=== PATIENT | male | born 1960 | race Caucasian/White ===

== ENCOUNTER → 2016-07-13 | Outpatient (CLI) | payer OTHER ==
[~2016-07-13] MED LIST: /CELE20CA PO; CELE-19 PO; CYMB1CAP PO; FISH300C2 OR; FLEX10TA2 PO; GABA100C PO; GLUC500T3 OR; Glucosamine OR; MIRA0.5T PO; MULTIVIT OR; NORFLEX PO; NUCY100T8 PO; PERCOCET PO; SOMA350T OR; SOMA350T PO; TIZA4TAB OR; TRAM50TA2 OR; VICO5TAB OR
--- NOTE | 2016-07-21 00:24 | ECWPNPC ---
PATIENT NAME: BEBE NERI : 1960 GENDER: MALE VISIT DATE: 07/13/2016 DISCHARGE DATE: 07/13/16 1618 VISIT LOCKED DATE TIME: PHYSICIAN: JESUS CORMIER RESOURCE: JESUS CORMIER REASON FOR APPOINTMENT 1. W/C HISTORY OF PRESENT ILLNESS HISTORY OF PRESENT ILLNESS: PAIN THE PATIENT DESCRIBES THE PAIN... FALL RISK SCREENING: SCREENING :NO FALLS IN THE PAST YEAR TODAY'S VISIT: NOTES: WC FOLLOWUP FOR LOW BACK AND LEFT LEG PAIN. LEG PAIN IS GETTING WORSE AND HE WOULD LIKE TO HAVE THE KNEE AREA SHOTS WHICH HAVE HELPED WITH THE PAIN IN THE PAST. . CURRENT MEDICATIONS TAKING NUCYNTA ER 100 MG TABLET EXTENDED RELEASE 12 HOUR 1 TABLET ORALLY EVERY 12 HRS MDD=2 TAKING SOMA 350 MG TABLET 1 TAB ORALLY DAILY AT BEDTIME NEEDED MDD=1 TAKING PERCOCET 5-325 MG TABLET 1 TABLET ORALLY EVERY 4 -6 HOURS PRN PAIN MDD=4 TAKING CELEBREX 200 MG CAPSULE 1 CAPSULE ORALLY ONCE A DAY NOT-TAKING TIZANIDINE HCL 4 MG TABLET 1 TABLET NEEDED ORALLY BEFORE BEDTIME, NOTES: INSURANCE WONT FILL MEDICATION LIST REVIEWED AND RECONCILED WITH THE PATIENT PAST MEDICAL HISTORY GERD ALLERGIES N.K.D.A. SOCIAL HISTORY GENERAL: TOBACCO USE ARE YOU A:NONSMOKER LEARNING BARRIERS / SPECIAL NEEDS ORIENTED TO PLAN OF CARE: PATIENT, PAIN MANAGEMENT PATIENT, ORIENTED TO PLAN OF CARE: PATIENT, PAIN MANAGEMENT PATIENT. NEW PATIENT PAIN DIARY TODAY'S VISITNOTES FROM 0-10, WHAT LEVEL IS YOUR PAIN TODAY?0 PAIN CLINIC PFS, CLERGY, PUBLIC HEALTH REFERRALS PFS REFERRAL NEEDED?NO CLERGY REFERRAL NEEDED?NO PUBLIC HEALTH REFERRAL NEEDED?NO WAS THE PROVIDER NOTIFIED OF ANY PERTINENT INFO?NO PFS REFERRAL NEEDED?NO CLERGY REFERRAL NEEDED?NO PUBLIC HEALTH REFERRAL NEEDED?NO WAS THE PROVIDER NOTIFIED OF ANY PERTINENT INFO?NO REVIEW OF SYSTEMS CONSTITUTIONAL: ANY CHANGE IN YOUR MEDICAL CONDITION? NO . CHILLS NO . FEVER NO . INFECTION: DO YOU HAVE NEW INFECTIONS? NO . DO YOU HAVE HISTORY OF MRSA? NO . MUSCULOSKELETAL: ANY NEW PATTERNS OF PAIN OR NUMBNESS? NO . GASTROENTEROLOGY: ANY NEW CHANGE IN BOWEL CONTROL? NO . GENITOURINARY: ANY NEW CHANGE IN BLADDER CONTROL? NO . IS THERE A CHANCE YOU COULD BE ? NO . HEMATOLOGY/LYMPH: DO YOU TAKE ANY BLOOD THINNERS? (FOR EXAMPLE- COUMADIN, PLAVIX, AGGRENOX, PLATEL, PRADAXA, OR XARELTO) NO . WHEN WAS YOUR LAST DOSE? DATE: TIME: . NEUROLOGY: HAVE YOU FALLEN IN THE PAST 6 MONTHS? NO . ANY NEW EXTREMITY NUMBNESS OR WEAKNESS? NO . CARDIOLOGY: DO YOU HAVE A PACEMAKER OR DEFIBRILLATOR? NO . RESPIRATORY: HAVE YOU BEEN SICK IN THE PAST WEEK? NO . FEVER NO . FLU LIKE SYMPTOMS? NO . COUGH NO . INTEGUMENTARY: DO YOU HAVE ANY RASHES OR OPEN SORES? NO . ALLERGIC/IMMUNO: ARE YOU ALLERGIC TO SHELLFISH OR IV DYE? NO . ANY NEW ALLERGIES? NO . PSYCHIATRIC: DO YOU HAVE THOUGHTS OF HURTING YOURSELF OR SOMEONE ELSE? NO . ARE YOU ABUSED, NEGLECTED, OR IN AN UNSAFE ENVIRONMENT? NO . ENDOCRINOLOGY: ARE YOU DIABETIC? NO . OTHER: DO YOU NEED ANY PRESCRIPTIONS? NO . IF YES, PLEASE LIST: ____ . ANY NEW PROBLEMS WITH YOUR MEDICATIONS? NO . WHEN DID YOU LAST EAT? ____ . WHEN DID YOU LAST DRINK? ____ . WHAT DID YOU LAST DRINK? ____ . NAME OF PERSON DRIVING YOU HOME? ____ . DO YOU HAVE ANY OTHER QUESTIONS OR CONCERNS NO . REVIEWED BY: PROVIDER: JESUS STEWART . VITAL SIGNS WT 210 LBS, HT 70 IN, BMI 30.13 INDEX, BP 124/70 MM HG, HR 83 /MIN, RR 16 /MIN, TEMP 98.0 F, OXYGEN SAT % 92%, NA INITIALS LC, REVIEWED BY: CS. EXAMINATION GENERAL EXAMINATION: PSYCHALERT , ORIENTED X 3 , APPROPRIATE MOOD AND AFFECT . HEART:HEART RATE REGULAR. MUSCULOSKELETAL:WEAKNESS NOTED IN BOTH QUADS LEFT GREATER THAN RIGHT., TRIGGER POINTS AND TIGHT FIBROUSS BANDS IDENTIFIED OVER THE LUMBAR PARAVEREBRAL MUSCLES AND INTO THE SACRUM. RESTRICTION OF ROM IN THIS AREA. SLOW TO RISE TO STANDING POSITION. GAIT ANTALGIC WITH LEFT LEG LIMP NOTED. POINT TENDERNESS OVER LUMBAR SPINOUS PROCESSES AND SPECIFICALLY AT THE LEFT SACRA ILIAC JOINT. JOINTS:LEFT , KNEE ,, PAIN , SWELLING , AT REST , WITH RANGE OF MOTION . LEFT PATELLA AND DISTAL LATERAL QUAD WARM TO TOUCH. ASSESSMENTS POSTLAMINECTOMY SYNDROME, NOT ELSEWHERE CLASSIFIED - M96.1 (PRIMARY) SPONDYLOSIS WITHOUT MYELOPATHY OR RADICULOPATHY, LUMBAR REGION - M47.816 PAIN IN LEFT LOWER LEG - M79.662 TREATMENT POSTLAMINECTOMY SYNDROME, NOT ELSEWHERE CLASSIFIED ARTHROCENTESIS INJECTION LARGE JOINT ([id number])JESUS CORMIER 07/13/2016 4:01:38 PM > LEFT KNEE INJECTION FACET JOINT/NERVE LUMBAR/SACRALWALJESUS PATTEN 07/13/2016 4:04:37 PM > BILATERAL THERAPEUTIC FACETS L4-5, L5S1 NOTES: CALL WHEN MEDS DUE. PROCEDURES PN WORKMANS' COMP OPINION IN YOUR OPINION, WAS THE INCIDENT THAT THE PATIENT DESCRIBED THE COMPETENT MEDICAL CAUSE OF THIS INJURY/ILLNESS? YES ARE THE PATIENT'S COMPLAINTS CONSISTENT WITH HIS/HER HISTORY OF THE INJURY/ILLNESS? YES IS THE PATIENT'S HISTORY OF THE INJURY/ILLNESS CONSISTENT WITH YOUR OBJECTIVE FINDING? YES WHAT IS THE PERCENTAGE OF TEMPORARY IMPAIRMENT? MARKED = 75% IS THE PATIENT WORKING? NO DOCTOR ON SITE: ARLEY HANKS MD PROCEDURE CODES FA211 ESTABILISHED PATIENT [facility] FACILITY CHARGE DISPOSITION & COMMUNICATION FOLLOW UP 6 WEEKS WC (REASON: WC NEED AUTH FOR LEFT KNEE/LEG INJECTION, AND BILATERAL LUMBAR FACETS AT L4-5 AND L5S1) ELECTRONICALLY SIGNED BY HANNAH VILLEGAS ON 07/20/2016 AT 06:55 PM EDT DISCLAIMER : THIS IS A VISIT SUMMARY EXTRACTED FROM THE [employer] CHART. IT IS NOT A COPY OF THE [employer] PROGRESS NOTE. PAPA
== END ==
LOC: M PAIN 15:00
PROVIDERS: ATTEND Nurse Practitioner Family
DX: Z09 Encounter for follow-up examination after completed treatment for conditions other than malignant neoplasm (principal); G89.29 Other chronic pain; M96.1 Postlaminectomy syndrome, not elsewhere classified; M47.816 Spondylosis without myelopathy or radiculopathy, lumbar region; M79.662 Pain in left lower leg; K21.9 Gastro-esophageal reflux disease without esophagitis; Z79.891 Long term (current) use of opiate analgesic; Z79.899 Other long term (current) drug therapy

== ENCOUNTER → 2016-08-17 | Outpatient (CLI) | payer OTHER ==
[~2016-08-17] MED LIST changes: +BUPIVACAINE HCL 0.25% 10 ML VIAL As Ordered ONE; +ISOVUE-M 300 61% 15ML VIAL (Q9967) As Ordered ONE; +LIDOCAINE 1% SDV INJ 30 ML VIAL As Ordered ONE; +TRIAMCINOLONE ACETONIDE SUSP 40 MG/ML VIAL (J3301) As Ordered ONE; +oxyCODONE 5MG TAB As Ordered ONE
--- NOTE | 2016-08-17 16:07 | REP ---
Left knee series: Partial study two views: History: Left knee injection. 3 seconds of fluoroscopy time is reported. Findings: A sequence of two last image hold fluoroscopic spot radiographs of the left knee document needle position and contrast injection associated with left knee injection procedure. Signed by César De Los Santos MD 08/17/2016 06:00 P
--- NOTE | 2016-08-25 00:25 | ECWPNPC ---
PATIENT NAME: BEBE NERI : 1960 GENDER: MALE VISIT DATE: 08/17/2016 DISCHARGE DATE: 08/17/16 1215 VISIT LOCKED DATE TIME: PHYSICIAN: ARLEY PACE RESOURCE: ARLEY PACE REASON FOR APPOINTMENT 1. KNEE JOINT INJECTION HISTORY OF PRESENT ILLNESS HISTORY OF PRESENT ILLNESS: PAIN THE PATIENT DESCRIBES THE PAIN... FALL RISK SCREENING: SCREENING :NO FALLS IN THE PAST YEAR CURRENT MEDICATIONS TAKING SOMA 350 MG TABLET 1 TAB ORALLY DAILY AT BEDTIME NEEDED MDD=1, NOTES: TAKING CELEBREX 200 MG CAPSULE 1 CAPSULE ORALLY ONCE A DAY, NOTES: 08/14/16 TAKING NUCYNTA ER 100 MG TABLET EXTENDED RELEASE 12 HOUR 1 TABLET ORALLY EVERY 12 HRS MDD=2, NOTES: 08/16/16 2200 TAKING PERCOCET 5-325 MG TABLET 1 TABLET ORALLY EVERY 4 -6 HOURS PRN PAIN MDD=4, NOTES: 08/17/16 0600 NOT-TAKING TIZANIDINE HCL 4 MG TABLET 1 TABLET NEEDED ORALLY BEFORE BEDTIME, NOTES: INSURANCE WONT FILL MEDICATION LIST REVIEWED AND RECONCILED WITH THE PATIENT PAST MEDICAL HISTORY GERD ALLERGIES N.K.D.A. SOCIAL HISTORY GENERAL: PAIN CLINIC PFS, CLERGY, PUBLIC HEALTH REFERRALS CLERGY REFERRAL NEEDED?NO WAS THE PROVIDER NOTIFIED OF ANY PERTINENT INFO?NO PFS REFERRAL NEEDED?NO PUBLIC HEALTH REFERRAL NEEDED?NO PATIENT: ____. REVIEW OF SYSTEMS CONSTITUTIONAL: ANY CHANGE IN YOUR MEDICAL CONDITION? NO . CHILLS NO . FEVER NO . INFECTION: DO YOU HAVE NEW INFECTIONS? NO . DO YOU HAVE HISTORY OF MRSA? NO . MUSCULOSKELETAL: ANY NEW PATTERNS OF PAIN OR NUMBNESS? NO . GASTROENTEROLOGY: ANY NEW CHANGE IN BOWEL CONTROL? NO . GENITOURINARY: ANY NEW CHANGE IN BLADDER CONTROL? NO . IS THERE A CHANCE YOU COULD BE ? NO . HEMATOLOGY/LYMPH: DO YOU TAKE ANY BLOOD THINNERS? (FOR EXAMPLE- COUMADIN, PLAVIX, AGGRENOX, PLATEL, PRADAXA, OR XARELTO) NO . WHEN WAS YOUR LAST DOSE? DATE: TIME: . NEUROLOGY: HAVE YOU FALLEN IN THE PAST 6 MONTHS? NO . ANY NEW EXTREMITY NUMBNESS OR WEAKNESS? NO . CARDIOLOGY: DO YOU HAVE A PACEMAKER OR DEFIBRILLATOR? NO . RESPIRATORY: HAVE YOU BEEN SICK IN THE PAST WEEK? NO . FEVER NO . FLU LIKE SYMPTOMS? NO . COUGH NO . INTEGUMENTARY: DO YOU HAVE ANY RASHES OR OPEN SORES? NO . ALLERGIC/IMMUNO: ARE YOU ALLERGIC TO SHELLFISH OR IV DYE? NO . ANY NEW ALLERGIES? NO . PSYCHIATRIC: DO YOU HAVE THOUGHTS OF HURTING YOURSELF OR SOMEONE ELSE? NO . ARE YOU ABUSED, NEGLECTED, OR IN AN UNSAFE ENVIRONMENT? NO . ENDOCRINOLOGY: ARE YOU DIABETIC? NO . OTHER: DO YOU NEED ANY PRESCRIPTIONS? NO . IF YES, PLEASE LIST: ____ . ANY NEW PROBLEMS WITH YOUR MEDICATIONS? NO . WHEN DID YOU LAST EAT? ____08/16/16 1800 . WHEN DID YOU LAST DRINK? ____08/17/16 0600 . WHAT DID YOU LAST DRINK? ____WATER . NAME OF PERSON DRIVING YOU HOME? ____MIHAIRAMON . DO YOU HAVE ANY OTHER QUESTIONS OR CONCERNS NO . REVIEWED BY: PROVIDER: . VITAL SIGNS WT 207.4 LBS, HT 70 IN, BMI 29.76 INDEX, BP 102/72 MM HG, HR 72 /MIN, RR 18 /MIN, TEMP 98.5 F, OXYGEN SAT % 94%, NA INITIALS SC 10:33, REVIEWED BY: MLF. ASSESSMENTS OSTEOARTHRITIS OF KNEE, UNSPECIFIED - M17.9 (PRIMARY) LEFT KNEE OSTEOARTHRITIS. PROCEDURES PN WORKMANS' COMP OPINION IN YOUR OPINION, WAS THE INCIDENT THAT THE PATIENT DESCRIBED THE COMPETENT MEDICAL CAUSE OF THIS INJURY/ILLNESS? YES ARE THE PATIENT'S COMPLAINTS CONSISTENT WITH HIS/HER HISTORY OF THE INJURY/ILLNESS? YES IS THE PATIENT'S HISTORY OF THE INJURY/ILLNESS CONSISTENT WITH YOUR OBJECTIVE FINDING? YES WHAT IS THE PERCENTAGE OF TEMPORARY IMPAIRMENT? MARKED = 75% IS THE PATIENT WORKING? NO DOCTOR ON SITE: ARLEY HANKS MD PRE-PROCEDURE DIAGNOSIS: LEFT KNEE OSTEOARTHRITISPOST-PROCEDURE DIAGNOSIS: LEFT KNEE OSTEOARTHRITISPROCEDURE: INJECTION OF STEROIDS AT THE LEFT KNEE WITH FLUOROSCOPIC GUIDANCESURGEON: ARLEY PACE MDANESTHESIA: LOCALCOMPLICATIONS: NONEPRE-PROCEDURE NOTE: THE PATIENT IS SUFFERING OF SEVERE LEFT KNEE PAIN. THE PATIENT HAS BEEN USING MULTIPLE MEDICATIONS TO CONTROL THIS PAIN. I HAVE DISCUSSED ALTERNATIVES WITH HIM. THE PATIENT INDICATES THAT HE CANNOT FUNCTION WITH THIS PAIN. AFTER DISCUSSING ALTERNATIVES HE WANTS TO MOVE FORWARD WITH A LEFT KNEE INJECTION OF STEROIDS. I WENT THROUGH THE RISKS ALTERNATIVES AND BENEFITS ASSOCIATED WITH THIS PROCEDURE AND THE PATIENT EXPRESSED THAT HE WOULD LIKE TO PROCEED. DUE TO THE PATIENT BODY HABITUS AND FOR CERTAINTY THE PROCEDURE WAS DONE UNDER FLUOROSCOPIC GUIDANCE. PROCEDURE NOTE: THE PATIENT WAS TAKEN TO THE PROCEDURE ROOM AND PLACED IN THE SUPINE POSITION. THE LEFT KNEE WERE CLEAN WITH BETHADINE SOLUTION AND DRAPED ASEPTICALLY. THE PROCEDURE WAS DONE WITH FLUOROSCOPIC GUIDANCE. ENTRY POINT WAS SELECTED AT THE SUPERIOR AND LATERAL MARGIN OF THE LEFT KNEE. UNDER FLUOROSCOPIC GUIDANCE A 22 GAUGE SPINAL NEEDLE WAS ADVANCE SMOOTHLY UNTIL THE LATERAL THIRD OF THE KNEE JOINT WAS REACHED SEEN WITH AN AP VIEW. AFTER PROPER POSITION OF THE NEEDLE WAS REACHED ISOVUE DYE 30% .25CC WAS INJECTED SLOWLY SHOWING ADEQUATE SPREAD OF THE DYE OVER THE RESPECTIVE KNEE JOINT. THEN A SOLUTION OF 4 CC OF BUPIVACAINE 0.125% AND KENALOG 20 MG WAS INJECTED IN THE LEFT KNEE. INJECTION WAS DONE SMOOTHLY AND WITHOUT RESISTANCE. THERE WAS NO EVIDENCE OF PARESTHESIA OR BLOOD. THE PATIENT WAS SEND TO THE RECOVERY ROOM FOR OBSERVATION. FLUOROSCOPY TIME WAS 3 SECONDS.POST-PROCEDURE NOTE: I DISCUSSED ALTERNATIVES WITH THE PATIENT. I WILL SEE HIM IN A F/UP IN THE NEXT FEW WEEKS. THERE WERE NO COMPLICATIONS DURING THE PROCEDURE. INSTRUCTIONS WERE GIVEN, QUESTIONS WERE ANSWERED, PATIENT REPORTS UNDERSTANDING AND AGREES WITH THE PLAN. I, LUCY SALAZAR, DOCUMENTED THE ABOVE INFORMATION ACTING A SCRIBE FOR DR. PACE. I HAVE REVIEWED THE ABOVE DOCUMENT, WRITTEN BY LUCY SALAZAR SCRIBLuke AND I VERIFY THAT IT IS ACCURATE. DIAGNOSTIC IMAG[facility] FLUORO GUIDANCE (PAIN)[id number] PROCEDURE CODES 6045F RADXPS IN END [id number] PXD [id number] DRAIN/INJ JOINT/[place] [address] NEEDLE LOCALIZATION BY XRAY DISPOSITION & COMMUNICATION FOLLOW UP 3 WEEKS ELECTRONICALLY SIGNED BY ARLEY PACE MD ON 08/24/2016 AT 06:25 AM EDT DISCLAIMER : THIS IS A VISIT SUMMARY EXTRACTED FROM THE [employer] CHART. IT IS NOT A COPY OF THE [employer] PROGRESS NOTE. MTDD
== END ==
LOC: M PAIN 10:20
PROVIDERS: ATTEND Anesthesiology
DX: G89.29 Other chronic pain (principal); M17.9 Osteoarthritis of knee, unspecified; K21.9 Gastro-esophageal reflux disease without esophagitis; Z79.891 Long term (current) use of opiate analgesic; Z79.899 Other long term (current) drug therapy
CPT/HCPCS: 20610; 77002; J3301; Q9967

== ENCOUNTER → 2016-10-17 | Outpatient (CLI) | payer OTHER ==
[~2016-10-17] MED LIST changes: -BUPIVACAINE HCL 0.25% 10 ML VIAL As Ordered ONE; -ISOVUE-M 300 61% 15ML VIAL (Q9967) As Ordered ONE; -LIDOCAINE 1% SDV INJ 30 ML VIAL As Ordered ONE; -TRIAMCINOLONE ACETONIDE SUSP 40 MG/ML VIAL (J3301) As Ordered ONE; -oxyCODONE 5MG TAB As Ordered ONE
--- NOTE | 2016-10-27 00:18 | ECWPNPC ---
PATIENT NAME: BEBE NERI : 1960 GENDER: MALE VISIT DATE: 10/17/2016 DISCHARGE DATE: 10/17/16 1654 VISIT LOCKED DATE TIME: PHYSICIAN: ARLEY PACE RESOURCE: ARLEY PACE REASON FOR APPOINTMENT 1. BACK/KNEE HISTORY OF PRESENT ILLNESS HISTORY OF PRESENT ILLNESS: PAIN THE PATIENT DESCRIBES THE PAIN... 55 YEAR OLD MALE PATIENT WITH HISTORY OF CHRONIC BACK AND LEFT LEG PAIN. PATIENT DESCRIBES THE PAIN ACHING, BURNING, SHARP, STABBING, TENDER, THROBBING, SORE, SHOOTING, AND HAVING IT ALL THE TIME WITH A PAIN SCORE OF 6-7/10 ON TODAY'S VISIT. PATIENT WAS INJURED IN A WORK RELATED INJURY ON 01-24-2010 WORKING FOR [employer] A [employer]NA[employer], PATIENT WAS CLIMBING A LADDER ON A TRUCK AND FELL INJURING HIS BACK AND LEFT LEG. PATIENT HAS TRIED PHYSICAL THERAPY IN THE PAST WITHOUT ANY SUCCESSES. PATIENT REPORTS THAT HE HAS HAD ONE BACK SURGERY IT HELPED FOR A TIME, THEN THE PAIN CAME BACK. PATIENT RECEIVED A LEFT KNEE INJECTION ON 08/17/2016 AND STATES THAT THE INJECTION IS STILL PROVIDING GOOD PAIN RELIEF FOR HIM WITH INCREASED MOBILITY AND FUNCTIONALITY. PATIENT REPORTS THAT THE INJECTION PROVIDED OVER 50 PERCENT IN PAIN RELIEF. PATIENT STATES THAT HIS BACK HURTS THE MOST TODAY. PATIENT DENIES UNEXPLAINABLE WEIGHT LOSS, FEVER, CHILLS, NEW CHANGES ON HIS URINARY OR BOWEL CONTROL. FALL RISK SCREENING: SCREENING :NO FALLS IN THE PAST YEAR CURRENT MEDICATIONS TAKING SOMA 350 MG TABLET 1 TAB ORALLY DAILY AT BEDTIME NEEDED MDD=1 TAKING CELEBREX 200 MG CAPSULE 1 CAPSULE ORALLY ONCE A DAY TAKING NUCYNTA ER 100 MG TABLET EXTENDED RELEASE 12 HOUR 1 TABLET ORALLY EVERY 12 HRS MDD=2 TAKING PERCOCET 5-325 MG TABLET 1 TABLET ORALLY EVERY 4 -6 HOURS PRN PAIN MDD=4 NOT-TAKING TIZANIDINE HCL 4 MG TABLET 1 TABLET NEEDED ORALLY BEFORE BEDTIME, NOTES: INSURANCE WONT FILL MEDICATION LIST REVIEWED AND RECONCILED WITH THE PATIENT PAST MEDICAL HISTORY GERD CHRONIC BACK PAIN ALLERGIES N.K.D.A. SURGICAL HISTORY LOW BACK SURGURY 1999 L3, L4, L5 BACK SURGURY 2000 FAMILY HISTORY NO FAMILY HISTORY DOCUMENTED. SOCIAL HISTORY GENERAL: PAIN CLINIC PFS, CLERGY, PUBLIC HEALTH REFERRALS CLERGY REFERRAL NEEDED?NO WAS THE PROVIDER NOTIFIED OF ANY PERTINENT INFO?NO PFS REFERRAL NEEDED?NO PUBLIC HEALTH REFERRAL NEEDED?NO PATIENT: ____. HOSPITALIZATION/MAJOR DIAGNOSTIC PROCEDURE NO HOSPITALIZATION HISTORY. REVIEW OF SYSTEMS REVIEWED BY: PROVIDER: . CONSTITUTIONAL: ANY CHANGE IN YOUR MEDICAL CONDITION? NO . CHILLS NO . FEVER NO . INFECTION: DO YOU HAVE NEW INFECTIONS? NO . DO YOU HAVE HISTORY OF MRSA? NO . MUSCULOSKELETAL: ANY NEW PATTERNS OF PAIN OR NUMBNESS? NO . GASTROENTEROLOGY: ANY NEW CHANGE IN BOWEL CONTROL? NO . GENITOURINARY: ANY NEW CHANGE IN BLADDER CONTROL? NO . IS THERE A CHANCE YOU COULD BE ? NO . HEMATOLOGY/LYMPH: DO YOU TAKE ANY BLOOD THINNERS? (FOR EXAMPLE- COUMADIN, PLAVIX, AGGRENOX, PLATEL, PRADAXA, OR XARELTO) NO . WHEN WAS YOUR LAST DOSE? DATE: TIME: . NEUROLOGY: HAVE YOU FALLEN IN THE PAST 6 MONTHS? NO . ANY NEW EXTREMITY NUMBNESS OR WEAKNESS? NO . CARDIOLOGY: DO YOU HAVE A PACEMAKER OR DEFIBRILLATOR? NO . RESPIRATORY: HAVE YOU BEEN SICK IN THE PAST WEEK? NO . FEVER NO . FLU LIKE SYMPTOMS? NO . COUGH NO . INTEGUMENTARY: DO YOU HAVE ANY RASHES OR OPEN SORES? NO . ALLERGIC/IMMUNO: ARE YOU ALLERGIC TO SHELLFISH OR IV DYE? NO . ANY NEW ALLERGIES? NO . PSYCHIATRIC: DO YOU HAVE THOUGHTS OF HURTING YOURSELF OR SOMEONE ELSE? NO . ARE YOU ABUSED, NEGLECTED, OR IN AN UNSAFE ENVIRONMENT? NO . ENDOCRINOLOGY: ARE YOU DIABETIC? NO . OTHER: DO YOU NEED ANY PRESCRIPTIONS? NO . IF YES, PLEASE LIST: ____ . ANY NEW PROBLEMS WITH YOUR MEDICATIONS? NO . WHEN DID YOU LAST EAT? ____ . WHEN DID YOU LAST DRINK? ____ . WHAT DID YOU LAST DRINK? ____ . NAME OF PERSON DRIVING YOU HOME? ____ . DO YOU HAVE ANY OTHER QUESTIONS OR CONCERNS NO . VITAL SIGNS WT 214.0 LBS, HT 70 IN, BMI 30.70 INDEX, BP 128/68 MM HG, HR 72 /MIN, RR 16 /MIN, TEMP 97.3 F, OXYGEN SAT % 98%, NA INITIALS TL 1522, REVIEWED BY: VDPATIENT WEIGHED ON PMC SCALE- TL. EXAMINATION : PATIENT IS ALERT O X 3 AND COOPERATIVE. THERE IS TENDERNESS IN THE LOW BACK PARASPINAL MUSCLE GROUP. MRI OF THE LUMBAR SPINE DONE ON 06-24-2014 SHOWS FACET ARTHROPATHY, STENOSIS AND POST OPERATIVE CHANGES. ASSESSMENTS POSTLAMINECTOMY SYNDROME, NOT ELSEWHERE CLASSIFIED - M96.1 (PRIMARY) LOW BACK PAIN - M54.5 TREATMENT POSTLAMINECTOMY SYNDROME, NOT ELSEWHERE CLASSIFIED REFILL SOMA TABLET, 350 MG, 1 TAB, ORALLY, DAILY AT BEDTIME NEEDED FOR SPASMS AND PAIN MDD=1, 30 DAY(S), 30, REFILLS 1 REFILL NUCYNTA ER TABLET EXTENDED RELEASE 12 HOUR, 100 MG, 1 TABLET, ORALLY, EVERY 12 HRS MDD=2, 30 DAY(S), 60, REFILLS 0 REFILL PERCOCET TABLET, 5-325 MG, 1 TABLET, ORALLY, EVERY 4 -6 HOURS PRN PAIN MDD=4, 30 DAY(S), 120, REFILLS 0 NOTES: WE DISCUSSED SEVERAL ISSUES WITH MR. NERI'S PAIN MANAGEMENT CASE. AT THIS TIME THE PATIENT WILL CONTINUE ON THE SAME MEDICATION REGIMEN BEFORE. PATIENT DID NOT BRING HER MEDICATIONS TODAY IN THE ORIGINAL BOTTLES AND WAS ADVISED TO BRING THEM FOR EVERY FOLLOW UP VISIT. UTOX DONE IN 2015 SHOWS CONSISTENT RESULTS. PATIENT REPORTS THAT HIS PAIN IS MANAGEABLE AT THIS TIME AND IS DOING BETTER SINCE THE INJECTION, PATIENT WILL FOLLOW UP WITH ME IN 6 WEEKS. , INSTRUCTIONS WERE GIVEN, QUESTIONS WERE ANSWERED, PATIENT REPORTS UNDERSTANDING AND AGREES WITH THE PLAN. I, LUCY SALAZAR, DOCUMENTED THE ABOVE INFORMATION ACTING A SCRIBE FOR DR. PACE. I HAVE REVIEWED THE ABOVE DOCUMENT, WRITTEN BY LUCY SALAZAR SCRIBLuke AND I VERIFY THAT IT IS ACCURATE. OTHERS REFILL CELEBREX CAPSULE, 200 MG, 1 CAPSULE, ORALLY, ONCE A DAY NEEDED FOR PAIN, 30 DAY(S), 30, REFILLS 1 PROCEDURES PN WORKMANS' COMP OPINION IN YOUR OPINION, WAS THE INCIDENT THAT THE PATIENT DESCRIBED THE COMPETENT MEDICAL CAUSE OF THIS INJURY/ILLNESS? YES ARE THE PATIENT'S COMPLAINTS CONSISTENT WITH HIS/HER HISTORY OF THE INJURY/ILLNESS? YES IS THE PATIENT'S HISTORY OF THE INJURY/ILLNESS CONSISTENT WITH YOUR OBJECTIVE FINDING? YES WHAT IS THE PERCENTAGE OF TEMPORARY IMPAIRMENT? MARKED = 75% IS THE PATIENT WORKING? NO DOCTOR ON SITE: ARLEY HANKS MD PROCEDURE CODES FA211 ESTABILISHED PATIENT [facility] F[facility] CHARGE G8427 DOC MEDS VERIFIED W/PT OR RE G8730 PAIN ASSESS POS TOOL F/U PLAN DOC DISPOSITION & COMMUNICATION FOLLOW UP 6 WEEKS ELECTRONICALLY SIGNED BY ARLEY PACE MD ON 10/26/2016 AT 08:16 AM EDT DISCLAIMER : THIS IS A VISIT SUMMARY EXTRACTED FROM THE [facility] [employer] CHART. IT IS NOT A COPY OF THE [employer] PROGRESS NOTE. CONNERD
== END ==
LOC: M PAIN 15:20
PROVIDERS: ATTEND Anesthesiology
DX: M96.1 Postlaminectomy syndrome, not elsewhere classified (principal); M54.5 Low back pain; M79.605 Pain in left leg; K21.9 Gastro-esophageal reflux disease without esophagitis; Z79.891 Long term (current) use of opiate analgesic; Z79.899 Other long term (current) drug therapy

== ENCOUNTER → 2017-01-08 | Outpatient (CLI) | payer OTHER ==
[~2017-01-08] MED LIST changes: -CELE-19 PO; +CELE1CAP4 PO; +NUCY100T3 PO; -NUCY100T8 PO
--- NOTE | 2017-01-09 01:04 | ECWPNPC ---
PATIENT NAME: BEBE NERI : 1960 GENDER: MALE VISIT DATE: 01/08/2017 DISCHARGE DATE: 01/08/17 1613 VISIT LOCKED DATE TIME: PHYSICIAN: JESUS CORMIER RESOURCE: JESUS CORMIER REASON FOR APPOINTMENT 1. HISTORY OF PRESENT ILLNESS HISTORY OF PRESENT ILLNESS: PAIN THE PATIENT DESCRIBES THE PAIN... FALL RISK SCREENING: SCREENING :NO FALLS IN THE PAST YEAR TODAY'S VISIT: NOTES: FOLLOWUP FOR BACK AND KNEE PAIN. RATES PAIN TODAY 8-9/10. DESCRIBES PAIN CONSTANT, ACHING, BURNING, SHARP AND STABBING, TENDER , THROBBING AND SHOOTING. PAIN IS CENTERED IN LOW BACK LEFT SIDE WITH RADIATION TO LEFT LEG AND HAS PERSISTANT NUMBNESS TO LEFT FOOT. STATES HE WATCHES CAREFULLY AND HAS HAD NO SKIN BREAKDOWN TO THE FOOT. SLEEP IS FAIR. MEDS ARE HELPFUL TO KEEP THE PAIN AND SPASM MANAGEABLE.DENIES ADVERSE REACTIONS TO HIS MEDIACTIONS. NO LOSS OF BOWEL OR BLADDER CONTROL. CURRENT MEDICATIONS TAKING SOMA 350 MG TABLET 1 TAB ORALLY DAILY AT BEDTIME NEEDED FOR SPASMS AND PAIN MDD=1 TAKING CELEBREX 200 MG CAPSULE 1 CAPSULE ORALLY ONCE A DAY NEEDED FOR PAIN TAKING NUCYNTA ER 100 MG TABLET EXTENDED RELEASE 12 HOUR 1 TABLET ORALLY EVERY 12 HRS MDD=2 TAKING PERCOCET 5-325 MG TABLET 1 TABLET ORALLY EVERY 4 -6 HOURS PRN PAIN MDD=4 NOT-TAKING TIZANIDINE HCL 4 MG TABLET 1 TABLET NEEDED ORALLY BEFORE BEDTIME, NOTES: INSURANCE WONT FILL MEDICATION LIST REVIEWED AND RECONCILED WITH THE PATIENT PAST MEDICAL HISTORY GERD CHRONIC BACK PAIN ALLERGIES N.K.D.A. REVIEW OF SYSTEMS REVIEWED BY: PROVIDER: JESUS CORMIER TAVERN KEEPER . CONSTITUTIONAL: ANY CHANGE IN YOUR MEDICAL CONDITION? NO . CHILLS NO . FEVER NO . INFECTION: DO YOU HAVE NEW INFECTIONS? NO . DO YOU HAVE HISTORY OF MRSA? NO . MUSCULOSKELETAL: ANY NEW PATTERNS OF PAIN OR NUMBNESS? NO . GASTROENTEROLOGY: ANY NEW CHANGE IN BOWEL CONTROL? NO . GENITOURINARY: ANY NEW CHANGE IN BLADDER CONTROL? NO . IS THERE A CHANCE YOU COULD BE ? NO . HEMATOLOGY/LYMPH: DO YOU TAKE ANY BLOOD THINNERS? (FOR EXAMPLE- COUMADIN, PLAVIX, AGGRENOX, PLATEL, PRADAXA, OR XARELTO) NO . WHEN WAS YOUR LAST DOSE? DATE: TIME: . NEUROLOGY: HAVE YOU FALLEN IN THE PAST 6 MONTHS? NO . ANY NEW EXTREMITY NUMBNESS OR WEAKNESS? NO . CARDIOLOGY: DO YOU HAVE A PACEMAKER OR DEFIBRILLATOR? NO . RESPIRATORY: HAVE YOU BEEN SICK IN THE PAST WEEK? NO . FEVER NO . FLU LIKE SYMPTOMS? NO . COUGH NO . INTEGUMENTARY: DO YOU HAVE ANY RASHES OR OPEN SORES? NO . ALLERGIC/IMMUNO: ARE YOU ALLERGIC TO SHELLFISH OR IV DYE? NO . ANY NEW ALLERGIES? NO . PSYCHIATRIC: DO YOU HAVE THOUGHTS OF HURTING YOURSELF OR SOMEONE ELSE? NO . ARE YOU ABUSED, NEGLECTED, OR IN AN UNSAFE ENVIRONMENT? NO . ENDOCRINOLOGY: ARE YOU DIABETIC? NO . OTHER: DO YOU NEED ANY PRESCRIPTIONS? NO . IF YES, PLEASE LIST: ____ . ANY NEW PROBLEMS WITH YOUR MEDICATIONS? NO . WHEN DID YOU LAST EAT? ____ . WHEN DID YOU LAST DRINK? ____ . WHAT DID YOU LAST DRINK? ____ . NAME OF PERSON DRIVING YOU HOME? ____ . DO YOU HAVE ANY OTHER QUESTIONS OR CONCERNS NO . VITAL SIGNS WT 208 LBS, HT 70 IN, BMI 29.84 INDEX, BP 125/78 MM HG, HR 88 /MIN, RR 16 /MIN, TEMP 98.8 F, OXYGEN SAT % 94%, NA INITIALS SC 14:39, REVIEWED BY: NL. EXAMINATION GENERAL EXAMINATION: PSYCHALERT , ORIENTED X 3 , APPROPRIATE MOOD AND AFFECT . HEART:HEART RATE REGULAR. MUSCULOSKELETAL:WEAKNESS NOTED IN BOTH QUADS LEFT GREATER THAN RIGHT., WEAKNESS NOTED BILATERALLY WITH ANKLE FLEXION/EXTENSION AND ROTATION. TRIGGER POINTS AND TIGHT FIBROUSS BANDS IDENTIFIED OVER THE LUMBAR PARAVEREBRAL MUSCLES AND INTO THE SACRUM. RESTRICTION OF ROM IN THIS AREA. SLOW TO RISE TO STANDING POSITION. GAIT ANTALGIC WITH LEFT LEG LIMP NOTED. POINT TENDERNESS OVER LUMBAR SPINOUS PROCESSES AND SPECIFICALLY AT THE LEFT SACRA ILIAC JOINT. JOINTS:LEFT , KNEE ,, PAIN , SWELLING , AT REST , WITH RANGE OF MOTION . LEFT PATELLA AND DISTAL LATERAL QUAD WARM TO TOUCH. DIAGNOSTIC TESTS REVIEWEDMRI OF LUMBAR SPINE COMPLETED 07/23/14 REVIEWED. 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 EXERCISE ANKLES DAILY. WALK DAILY AT LEAST 150 FEET.,LUMBAR EPIDURAL INJECTION: YOUR PROCEDURE MATERIAL WAS PRINTED. CLINICAL NOTES: ISTOP REGISTRY REVIEWED AND DEMNOSTRATES COMPLLIANCE. BRINGS IN MEDICATIONS WHICH IS APPROPRIATE FOR WHAT WAS DISPENSED. RECENT URINE TOXICOLOGY REVIEWED. NO UNAUTHORIZED MEDICATIONS. NO ILLICIT SUBSTANCES AND PRESCRIBED MEDICATIONS WERE PRESENT. PROCEDURES PN WORKMANS' COMP OPINION IN YOUR OPINION, WAS THE INCIDENT THAT THE PATIENT DESCRIBED THE COMPETENT MEDICAL CAUSE OF THIS INJURY/ILLNESS? YES ARE THE PATIENT'S COMPLAINTS CONSISTENT WITH HIS/HER HISTORY OF THE INJURY/ILLNESS? YES IS THE PATIENT'S HISTORY OF THE INJURY/ILLNESS CONSISTENT WITH YOUR OBJECTIVE FINDING? YES WHAT IS THE PERCENTAGE OF TEMPORARY IMPAIRMENT? MARKED = 75% IS THE PATIENT WORKING? NO DOCTOR ON SITE: ARLEY HANKS MD PREVENTIVE MEDICINE REVIEWED PRE PROCEDURE CARE AND CAUDAL EPIDURAL/ PT EXPRESSED UNDERSTANDING. PROCEDURE CODES FA211 ESTABILISHED PATIENT [facility] CHARGE DISPOSITION & COMMUNICATION FOLLOW UP 6 WEEKS (REASON: WC NEED AUTH FOR CAUDAL EPIDURAL) ELECTRONICALLY SIGNED BY HANNAH VILLEGAS ON 01/08/2017 AT 05:07 PM EDT DISCLAIMER : THIS IS A VISIT SUMMARY EXTRACTED FROM THE [employer] CHART. IT IS NOT A COPY OF THE [employer] PROGRESS NOTE. PAPA
== END ==
LOC: M PAIN 14:30
PROVIDERS: ATTEND Nurse Practitioner Family
DX: G89.29 Other chronic pain (principal); M96.1 Postlaminectomy syndrome, not elsewhere classified; M54.16 Radiculopathy, lumbar region; Z79.891 Long term (current) use of opiate analgesic; K21.9 Gastro-esophageal reflux disease without esophagitis; Z79.899 Other long term (current) drug therapy

== ENCOUNTER → 2017-03-21 | Outpatient (CLI) | payer OTHER ==
[~2017-03-21] MED LIST changes: +ISOVUE-M 300 61% 15ML VIAL (Q9967) As Ordered ONE; +LIDOCAINE 1% SDV INJ 30 ML VIAL As Ordered ONE; +diazePAM 5 MG TAB As Ordered ONE; +methylPREDNISolone SUSP 40 MG/ML (DEPO-medrol) VIAL (J1030) As Ordered ONE; +oxyCODONE 5MG TAB As Ordered ONE
--- NOTE | 2017-03-21 16:18 | REP ---
FLUOROSCOPIC GUIDED SPINAL INJECTION: The films were reviewed with Dr. Reyes. The patient has a history of low back pain. The portable C-Arm is provided in the OR for Dr. Snow for fluoroscopic guidance. Three intraoperative fluoro spot last image hold films were obtained for needle placement verification for lumbar epidural injection. The films are on the PACs system and are available for review. 14 seconds of fluoroscopy time was utilized for this procedure. Reviewed by GINGER Hernandez 03/22/2017 03:46 PEdited and Signed by Tony Reyes MD 03/22/2017 03:54 P
--- NOTE | 2017-04-03 00:46 | ECWPNPC ---
PATIENT NAME: BEBE NERI : 1960 GENDER: MALE VISIT DATE: 03/21/2017 DISCHARGE DATE: 03/21/17 1504 VISIT LOCKED DATE TIME: PHYSICIAN: ARLEY PACE RESOURCE: ARLEY PACE REASON FOR APPOINTMENT 1. CAUDAL WC HISTORY OF PRESENT ILLNESS HISTORY OF PRESENT ILLNESS: PAIN THE PATIENT DESCRIBES THE PAIN... FALL RISK SCREENING: SCREENING :NO FALLS IN THE PAST YEAR CURRENT MEDICATIONS TAKING CELEBREX 200 MG CAPSULE 1 CAPSULE ORALLY ONCE A DAY NEEDED FOR PAIN, NOTES: 03/19/172099 TAKING NUCYNTA ER 100 MG TABLET EXTENDED RELEASE 12 HOUR 1 TABLET ORALLY EVERY 12 HRS MDD=2, NOTES: 03/20/172099 TAKING PERCOCET 5-325 MG TABLET 1 TABLET ORALLY EVERY 4 -6 HOURS PRN PAIN MDD=4, NOTES: 03/21/17 0400 TAKING SOMA 350 MG TABLET 1 TAB ORALLY DAILY AT BEDTIME NEEDED FOR SPASMS AND PAIN MDD=1, NOTES: 03/20/172099 NOT-TAKING TIZANIDINE HCL 4 MG TABLET 1 TABLET NEEDED ORALLY BEFORE BEDTIME, NOTES: INSURANCE WONT FILL MEDICATION LIST REVIEWED AND RECONCILED WITH THE PATIENT PAST MEDICAL HISTORY GERD CHRONIC BACK PAIN ALLERGIES N.K.D.A. SURGICAL HISTORY LOW BACK SURGURY 1999 L3, L4, L5 BACK SURGURY 2000 REVIEW OF SYSTEMS REVIEWED BY: PROVIDER: . CONSTITUTIONAL: ANY CHANGE IN YOUR MEDICAL CONDITION? NO . CHILLS NO . FEVER NO . INFECTION: DO YOU HAVE NEW INFECTIONS? NO . DO YOU HAVE HISTORY OF MRSA? NO . MUSCULOSKELETAL: ANY NEW PATTERNS OF PAIN OR NUMBNESS? YES PT REPORTS PAIN IS A LITTLE MORE TO THE RIGHT SIDE NOW. . GASTROENTEROLOGY: ANY NEW CHANGE IN BOWEL CONTROL? NO . GENITOURINARY: ANY NEW CHANGE IN BLADDER CONTROL? NO . IS THERE A CHANCE YOU COULD BE ? NO . HEMATOLOGY/LYMPH: DO YOU TAKE ANY BLOOD THINNERS? (FOR EXAMPLE- COUMADIN, PLAVIX, AGGRENOX, PLATEL, PRADAXA, OR XARELTO) NO . WHEN WAS YOUR LAST DOSE? DATE: TIME: . NEUROLOGY: HAVE YOU FALLEN IN THE PAST 6 MONTHS? NO . ANY NEW EXTREMITY NUMBNESS OR WEAKNESS? NO . CARDIOLOGY: DO YOU HAVE A PACEMAKER OR DEFIBRILLATOR? NO . RESPIRATORY: HAVE YOU BEEN SICK IN THE PAST WEEK? NO . FEVER NO . FLU LIKE SYMPTOMS? NO . COUGH NO . INTEGUMENTARY: DO YOU HAVE ANY RASHES OR OPEN SORES? NO . ALLERGIC/IMMUNO: ARE YOU ALLERGIC TO SHELLFISH OR IV DYE? NO . ANY NEW ALLERGIES? NO . PSYCHIATRIC: DO YOU HAVE THOUGHTS OF HURTING YOURSELF OR SOMEONE ELSE? NO . ARE YOU ABUSED, NEGLECTED, OR IN AN UNSAFE ENVIRONMENT? NO . ENDOCRINOLOGY: ARE YOU DIABETIC? NO . OTHER: DO YOU NEED ANY PRESCRIPTIONS? YES . IF YES, PLEASE LIST: ____CELEBREX, HYDROCODONE . ANY NEW PROBLEMS WITH YOUR MEDICATIONS? NO . WHEN DID YOU LAST EAT? ____03/20/171999 . WHEN DID YOU LAST DRINK? ____03/21/17 06 . WHAT DID YOU LAST DRINK? ____WATER . NAME OF PERSON DRIVING YOU HOME? ____PARVEZ SWANK . DO YOU HAVE ANY OTHER QUESTIONS OR CONCERNS NO . VITAL SIGNS WT 210.0 LBS, HT 70 IN, BMI 30.13 INDEX, BP 118/61 MM HG, HR 67 /MIN, RR 16 /MIN, TEMP 98.0 F, OXYGEN SAT % 97%, NA INITIALS TL 1302, REVIEWED BY: IRINA. ASSESSMENTS INTERVERTEBRAL DISC DISORDER WITH RADICULOPATHY OF LUMBOSACRAL REGION - M51.17 (PRIMARY) PROCEDURES PRE PROCEDURE DIAGNOSIS LUMBOSACRAL DISC DISORDER WITH RADICULOPATHY POST PROCEDURE DIAGNOSIS LUMBOSACRAL DISC DISORDER WITH RADICULOPATHY PROCEDURE LUMBAR EPIDURAL STEROID INJECTION UNDER FLUOROSCOPIC GUIDANCE SURGEON DR. ARLEY PACE LACTATION SPECIALIST NONE ANESTHESIA LOCAL PRE PROCEDURE NOTE THE PATIENT HAS A HISTORY OF CHRONIC LOW BACK PAIN. I EVALUATE THE PATIENT AND REVIEWED THE CHART. I WENT OVER THE RISKS, ALTERNATIVES, AND BENEFITS ASSOCIATED WITH THIS PROCEDURE. THE PATIENT WOULD LIKE TO PROCEED AND GIVE CONSENT TO PERFORMED THE PROCEDURE. THE PATIENT DENIES UNEXPLAINABLE WEIGHT LOSS, FEVER, CHILLS, OR NEW CHANGES IN URINARY OR BOWEL CONTROL. DESCRIPTION OF PROCEDURE THE PATIENT WAS BROUGHT TO THE PROCEDURE ROOM AND PLACED IN THE PRONE POSITION. THE LUMBOSACRAL AREA WAS CLEANED WITH BETADINE SOLUTION AND DRAPED ASEPTICALLY. THE PROCEDURE WAS DONE UNDER STERILE CONDITIONS. I CHECKED LATERALITY AND THE LEVEL WHERE THE PROCEDURE WAS GOING TO BE PERFORMED WITH THE PATIENT AND THE SUPPORTING STAFF AT THE MOMENT OF THE TIME OUT IN THE PROCEDURE ROOM. UNDER FLUOROSCOPIC GUIDANCE, THE TARGET POINT WAS SELECTED AT THE INTERLAMINAR LEVEL OF L5-S1. LIDOCAINE WAS USED TO NUMB THE SKIN AND THE SUBCUTANEOUS TISSUE BELOW IT. EPIDURAL TUOHY NEEDLE, 17-GAUGE, WAS ADVANCED UNDER FLUOROSCOPIC GUIDANCE AND FOLLOWING PATIENT FEEDBACK UNTIL THE EPIDURAL SPACE WAS REACHED, 7 CM DEEP INTO THE SKIN BY THE LOSS OF RESISTANCE TECHNIQUE. ISOVUE M DYE 30%, 0.25 ML, WAS INJECTED SHOWING ADEQUATE SPREAD OF THE DYE. THEN, A SOLUTION OF 3 ML OF NORMAL SALINE WITH DEPO-MEDROL 60 MG WAS INJECTED SLOWLY FOLLOWING PATIENT FEEDBACK. THERE WAS NO EVIDENCE OF BLOOD, PARESTHESIA OR CEREBROSPINAL FLUID DURING THE PROCEDURE. THE PATIENT WAS SENT TO THE RECOVERY ROOM. THE PATIENT WAS MOVING THE EXTREMITIES AND DOING WELL. THERE WAS NO COMPLICATION DURING THE PROCEDURE. FLUOROSCOPY TIME WAS 14 SECONDS. POST PROCEDURE NOTE THE PATIENT WILL BE SEEN IN A FOLLOW UP IN THE NEXT FEW WEEKS. INSTRUCTIONS WERE GIVEN, QUESTIONS WERE ANSWERED, AND THE PATIENT EXPRESSED UNDERSTANDING AND AGREES WITH THE PLAN. I, ELENI EDWARD, DOCUMENTED THE ABOVE INFORMATION ACTING A SCRIBE FOR DR. PACE. I HAVE REVIEWED THE ABOVE DOCUMENT, WRITTEN BY ELENI CEJAIBLuke AND I VERIFY THAT IT IS ACCURATE PN WORKMANS' COMP OPINION IN YOUR OPINION, WAS THE INCIDENT THAT THE PATIENT DESCRIBED THE COMPETENT MEDICAL CAUSE OF THIS INJURY/ILLNESS? YES ARE THE PATIENT'S COMPLAINTS CONSISTENT WITH HIS/HER HISTORY OF THE INJURY/ILLNESS? YES IS THE PATIENT'S HISTORY OF THE INJURY/ILLNESS CONSISTENT WITH YOUR OBJECTIVE FINDING? YES WHAT IS THE PERCENTAGE OF TEMPORARY IMPAIRMENT? MARKED = 75% IS THE PATIENT WORKING? NO DOCTOR ON SITE: ARLEY HANKS MD DIAGNOSTIC IMAGING [facility] FLUORO GUIDE SPINE INJECTION (PAIN)[id number] PROCEDURE CODES 10340 LUMBAR/SACRAL W/ IMAGING 6045F RADXPS IN END [id number] PXD DISPOSITION & COMMUNICATION FOLLOW UP 2 WEEKS ELECTRONICALLY SIGNED BY ARLEY PACE MD ON 04/01/2017 AT 02:39 PM EST DISCLAIMER : THIS IS A VISIT SUMMARY EXTRACTED FROM THE [employer] CHART. IT IS NOT A COPY OF THE [employer] PROGRESS NOTE. PAPA
== END ==
LOC: M PAIN 13:00
PROVIDERS: ATTEND Anesthesiology
DX: G89.29 Other chronic pain (principal); M51.17 Intervertebral disc disorders with radiculopathy, lumbosacral region; Z79.891 Long term (current) use of opiate analgesic; Z79.899 Other long term (current) drug therapy
CPT/HCPCS: 62323; J1030; Q9967

== ENCOUNTER → 2017-05-17 | Outpatient (CLI) | payer OTHER | LOC: M PAIN 15:00 | DX: M54.16 Radiculopathy, lumbar region (principal); M17.12 Unilateral primary osteoarthritis, left knee; M79.1 Myalgia; M96.1 Postlaminectomy syndrome, not elsewhere classified; Z79.891 Long term (current) use of opiate analgesic; Z79.899 Other long term (current) drug therapy; Z87.891 Personal history of nicotine dependence | CPT/HCPCS: G0463 ==

== ENCOUNTER → 2017-07-26 | Outpatient (CLI) | payer OTHER | LOC: M PAIN 14:30 | DX: M54.16 Radiculopathy, lumbar region (principal); M96.1 Postlaminectomy syndrome, not elsewhere classified; M17.9 Osteoarthritis of knee, unspecified; Z79.891 Long term (current) use of opiate analgesic; Z79.899 Other long term (current) drug therapy; Z87.891 Personal history of nicotine dependence | CPT/HCPCS: G0463 ==

== ENCOUNTER → 2017-09-20 | Outpatient (CLI) | payer OTHER | LOC: M PAIN 15:15 | DX: G89.29 Other chronic pain (principal); M54.16 Radiculopathy, lumbar region; Z79.891 Long term (current) use of opiate analgesic; M96.1 Postlaminectomy syndrome, not elsewhere classified; M17.9 Osteoarthritis of knee, unspecified; K21.9 Gastro-esophageal reflux disease without esophagitis; Z87.891 Personal history of nicotine dependence; Z79.899 Other long term (current) drug therapy | CPT/HCPCS: G0463 ==

== ENCOUNTER → 2017-11-07 | Outpatient (CLI) | payer OTHER ==
[~2017-11-07] MED LIST changes: -/CELE20CA PO; +BUPIVACAINE HCL 0.25% 30 ML VIAL As Ordered; -CELE1CAP4 PO; -CYMB1CAP PO; -FISH300C2 OR; -FLEX10TA2 PO; -GABA100C PO; -GLUC500T3 OR; -Glucosamine OR; +ISOVUE-M 300 61% 15ML VIAL (Q9967) As Ordered; -ISOVUE-M 300 61% 15ML VIAL (Q9967) As Ordered ONE; +LIDOCAINE 1% SDV INJ 30 ML VIAL As Ordered; -LIDOCAINE 1% SDV INJ 30 ML VIAL As Ordered ONE; -MIRA0.5T PO; -MULTIVIT OR; -NORFLEX PO; -NUCY100T3 PO; -PERCOCET PO; -SOMA350T OR; -SOMA350T PO; -TIZA4TAB OR; -TRAM50TA2 OR; +TRIAMCINOLONE ACETONIDE SUSP 40 MG/ML VIAL (J3301) As Ordered; -VICO5TAB OR; -diazePAM 5 MG TAB As Ordered ONE; -methylPREDNISolone SUSP 40 MG/ML (DEPO-medrol) VIAL (J1030) As Ordered ONE; +oxyCODONE 5MG TAB As Ordered; -oxyCODONE 5MG TAB As Ordered ONE
== END ==
LOC: M PAIN 11:00
DX: M17.12 Unilateral primary osteoarthritis, left knee (principal); Z79.899 Other long term (current) drug therapy; Z87.891 Personal history of nicotine dependence
CPT/HCPCS: J3301

== ENCOUNTER → 2017-12-06 | Outpatient (CLI) | payer OTHER | LOC: M PAIN 13:45 | DX: M17.12 Unilateral primary osteoarthritis, left knee (principal); M54.16 Radiculopathy, lumbar region; M79.1 Myalgia; M96.1 Postlaminectomy syndrome, not elsewhere classified; Z79.891 Long term (current) use of opiate analgesic; K21.9 Gastro-esophageal reflux disease without esophagitis; Z79.899 Other long term (current) drug therapy; Z87.891 Personal history of nicotine dependence | CPT/HCPCS: G0463 ==

== ENCOUNTER → 2018-04-24 | Outpatient (CLI) | payer OTHER ==
[~2018-04-24] MED LIST changes: +/CELE20CA PO; +BUPIVACAINE HCL 0.25% 10 ML VIAL As Ordered ONE; -BUPIVACAINE HCL 0.25% 30 ML VIAL As Ordered; +BUPIVACAINE HCL 0.25% 30 ML VIAL As Ordered ONE; +CELE1CAP4 PO; +CYMB1CAP PO; +FISH300C2 OR; +FLEX10TA2 PO; +GABA100C PO; +GLUC500T3 OR; +Glucosamine OR; -ISOVUE-M 300 61% 15ML VIAL (Q9967) As Ordered; -LIDOCAINE 1% SDV INJ 30 ML VIAL As Ordered; +MIRA0.5T PO; +MULTIVIT OR; +NORFLEX PO; +NUCY100T16 PO; +PERCOCET PO; +SOMA350T OR; +SOMA350T PO; +TIZA4TAB OR; +TRAM50TA2 OR; -TRIAMCINOLONE ACETONIDE SUSP 40 MG/ML VIAL (J3301) As Ordered; +TRIAMCINOLONE ACETONIDE SUSP 40 MG/ML VIAL (J3301) As Ordered ONE; +VICO5TAB OR; -oxyCODONE 5MG TAB As Ordered; +oxyCODONE 5MG TAB As Ordered ONE
--- NOTE | 2018-05-11 23:39 | ECWPNPC ---
PATIENT NAME: BEBE NERI : 1960 GENDER: MALE VISIT DATE: 04/24/2018 DISCHARGE DATE: 04/24/18 1607 VISIT LOCKED DATE TIME: PHYSICIAN: ARLEY PACE MD RESOURCE: ARLEY PACE MD REASON FOR APPOINTMENT 1. TPI HISTORY OF PRESENT ILLNESS HISTORY OF PRESENT ILLNESS: PAIN THE PATIENT DESCRIBES THE PAIN... FALL RISK SCREENING: SCREENING :NO FALLS IN THE PAST YEAR CURRENT MEDICATIONS TAKING NUCYNTA ER 100 MG TABLET EXTENDED RELEASE 12 HOUR 1 TABLET ORALLY EVERY 12 HRS MDD=2, NOTES: 1000 TAKING SOMA 350 MG TABLET 1 TAB ORALLY DAILY AT BEDTIME NEEDED FOR SPASMS AND PAIN MDD=1, NOTES: 2 DAYS AGO TAKING CELEBREX 200 MG CAPSULE 1 CAPSULE ORALLY ONCE A DAY NEEDED FOR PAIN, NOTES: 04/23/18@220 TAKING PERCOCET 5-325 MG TABLET 1 TABLET ORALLY EVERY 4 -6 HOURS PRN PAIN MDD=4, NOTES: 1000 MEDICATION LIST REVIEWED AND RECONCILED WITH THE PATIENT PAST MEDICAL HISTORY GERD CHRONIC BACK PAIN ALLERGIES N.K.D.A. SURGICAL HISTORY LOW BACK SURGURY 1999 L3, L4, L5 BACK SURGURY 2000 FAMILY HISTORY FATHER: ALIVE 82 YRS MOTHER: 71 YRS, DIAGNOSED WITH OTHER 4 BROTHER(S) , 2 SISTER(S) - HEALTHY. MOTHER FROM MS. SOCIAL HISTORY GENERAL: TOBACCO USE ARE YOU A:FORMER SMOKER ALCOHOL SCREENING DID YOU HAVE A DRINK CONTAINING ALCOHOL IN THE PAST YEAR?NO POINTS0 INTERPRETATIONNEGATIVE CAFFEINE CAFFEINE USE?YES HOW OFTEN AND HOW MUCH? DAILY COFFEE GNOSTICIST [id number] NONE NO CONFUCIANISM BELIEFS THAT WOULD IMPACT HEALTH CARE. 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 EXERCISE: NO REGULAR EXERCISE. MARITAL STATUS: . OTHERS AT HOME: SPOUSE. FEMALE 6 MONTH RISK ASSESSMENT FOR STD SPOUSE. PAIN CLINIC PFS, CLERGY, PUBLIC HEALTH REFERRALS HAS THE PATIENT BEEN EDUCATED REGARDING HIS/HER PLAN OF CARE?YES HAS THE PATIENT BEEN EDUCATED REGARDING PAIN, THE RISK FOR PAIN, THE IMPORTANCE OF EFFECTIVE PAIN MANAGEMENT, AND THE PAIN ASSESSMENT PROCESS?YES ADVANCE DIRECTIVE ADVANCE DIRECTIVE DISCUSSED WITH PATIENT:YES HCP PARVEZ NERI, REVIEWED 7/5/18 1130 LAS. HOSPITALIZATION/MAJOR DIAGNOSTIC PROCEDURE NO HOSPITALIZATION HISTORY. REVIEW OF SYSTEMS REVIEWED BY: PROVIDER: . CONSTITUTIONAL: ANY CHANGE IN YOUR MEDICAL CONDITION? NO . CHILLS NO . FEVER NO . INFECTION: DO YOU HAVE NEW INFECTIONS? NO . DO YOU HAVE HISTORY OF MRSA? NO . MUSCULOSKELETAL: ANY NEW PATTERNS OF PAIN OR NUMBNESS? NO . GASTROENTEROLOGY: ANY NEW CHANGE IN BOWEL CONTROL? NO . GENITOURINARY: ANY NEW CHANGE IN BLADDER CONTROL? NO . IS THERE A CHANCE YOU COULD BE ? NO . HEMATOLOGY/LYMPH: DO YOU TAKE ANY BLOOD THINNERS? (FOR EXAMPLE- COUMADIN, PLAVIX, AGGRENOX, PLATEL, PRADAXA, OR XARELTO) NO . WHEN WAS YOUR LAST DOSE? DATE: TIME: . NEUROLOGY: HAVE YOU FALLEN IN THE PAST 6 MONTHS? NO . ANY NEW EXTREMITY NUMBNESS OR WEAKNESS? NO . CARDIOLOGY: DO YOU HAVE A PACEMAKER OR DEFIBRILLATOR? NO . RESPIRATORY: HAVE YOU BEEN SICK IN THE PAST WEEK? NO . FEVER NO . FLU LIKE SYMPTOMS? NO . COUGH NO . INTEGUMENTARY: DO YOU HAVE ANY RASHES OR OPEN SORES? NO . ALLERGIC/IMMUNO: ARE YOU ALLERGIC TO SHELLFISH OR IV DYE? NO . ANY NEW ALLERGIES? NO . PSYCHIATRIC: DO YOU HAVE THOUGHTS OF HURTING YOURSELF OR SOMEONE ELSE? NO . ARE YOU ABUSED, NEGLECTED, OR IN AN UNSAFE ENVIRONMENT? NO . ENDOCRINOLOGY: ARE YOU DIABETIC? NO . OTHER: DO YOU NEED ANY PRESCRIPTIONS? NO . IF YES, PLEASE LIST: ____ . ANY NEW PROBLEMS WITH YOUR MEDICATIONS? NO . WHEN DID YOU LAST EAT? ____04/23/18 . WHEN DID YOU LAST DRINK? ____1200 . WHAT DID YOU LAST DRINK? ____WATER . NAME OF PERSON DRIVING YOU HOME? ____PARVEZ SWANK . DO YOU HAVE ANY OTHER QUESTIONS OR CONCERNS NO . VITAL SIGNS WT 220.6 LBS, HT 70 IN, BMI 31.65 INDEX, BP 120/74 MM HG, HR 81 /MIN, RR 16 /MIN, TEMP 97.7 F, OXYGEN SAT % 95%, NA INITIALS SC 14:15. ASSESSMENTS MYALGIA, OTHER SITE - M79.18 (PRIMARY) PROCEDURES PN TRIGGER POINT INJECTION WITH STEROIDS PRE PROCEDURE DIAGNOSIS 1. MYALGIA 2. PAIN AT LEFT LOW BACK AREA POST PROCEDURE DIAGNOSIS 1. MYALGIA 2. PAIN AT LEFT LOW BACK AREA PROCEDURE TRIGGER POINT INJECTION AT LEFT LOW BACK AREA SURGEON DR. ARLEY PACE LABORATORY ASSOCIATE NONE ANESTHESIA LOCAL PRE PROCEDURE NOTE THE PATIENT HAS A HISTORY OF CHRONIC PAIN AT THE LEFT LOW BACK AREA. I EVALUATE THE PATIENT AND REVIEWED THE CHART. THERE IS EVIDENCE OF BANDS OF TISSUE WITH RESTRICTION OF MOVEMENT AND PRESENCE OF TRIGGER POINT AT THE AFFECTED AREA. I WENT OVER THE RISKS, ALTERNATIVES, AND BENEFITS ASSOCIATED WITH THIS PROCEDURE. THE PATIENT WOULD LIKE TO PROCEED AND GIVE CONSENT TO PERFORMED THE PROCEDURE. THE PATIENT DENIES UNEXPLAINABLE WEIGHT LOSS, FEVER, CHILLS, OR NEW CHANGES IN URINARY OR BOWEL CONTROL DESCRIPTION OF PROCEDURE THE PATIENT WAS BROUGHT TO THE PROCEDURE ROOM AND PLACED IN THE SITTING POSITION. THE AREA WAS CLEANED WITH ALCOHOL. THE PROCEDURE WAS DONE USING ASEPTIC STERILE TECHNIQUE. I CHECKED LATERALITY AND THE LEVEL WHERE THE PROCEDURE WAS GOING TO BE PERFORMED WITH THE PATIENT AND THE SUPPORTING STAFF AT THE MOMENT OF THE TIME OUT IN THE PROCEDURE ROOM. USING A 25-GAUGE NEEDLE, TRIGGER POINTS WERE INJECTED AT THE LEFT LOW BACK AREA WITH A TOTAL OF 40 ML OF BUPIVACAINE 0.25% AND KENALOG 40 MG. THERE WAS NO EVIDENCE OF BLOOD, PARESTHESIA OR CEREBROSPINAL FLUID DURING THE PROCEDURE. THE PATIENT WAS SENT TO THE RECOVERY ROOM. THE PATIENT WAS MOVING THE EXTREMITIES AND DOING WELL. THERE WAS NO COMPLICATION DURING THE PROCEDURE POST PROCEDURE NOTE THE PATIENT WILL BE SEEN IN A FOLLOW UP IN THE NEXT FEW WEEKS. INSTRUCTIONS WERE GIVEN, QUESTIONS WERE ANSWERED, AND THE PATIENT EXPRESSED UNDERSTANDING AND AGREES WITH THE PLAN. I, TANK OATES, DOCUMENTED THE ABOVE INFORMATION ACTING A SCRIBE FOR DR. PACE. I HAVE REVIEWED THE ABOVE DOCUMENT, WRITTEN BY TANK YEAGER AND I VERIFY THAT IT IS ACCURATE. PN WORKMANS' COMP OPINION IN YOUR OPINION, WAS THE INCIDENT THAT THE PATIENT DESCRIBED THE COMPETENT MEDICAL CAUSE OF THIS INJURY/ILLNESS? YES ARE THE PATIENT'S COMPLAINTS CONSISTENT WITH HIS/HER HISTORY OF THE INJURY/ILLNESS? YES IS THE PATIENT'S HISTORY OF THE INJURY/ILLNESS CONSISTENT WITH YOUR OBJECTIVE FINDING? YES WHAT IS THE PERCENTAGE OF TEMPORARY IMPAIRMENT? MARKED = 75% IS THE PATIENT WORKING? NO DOCTOR ON SITE: ARLEY HANKS MD PROCEDURE CODES 14996 INJ TRIGGER POINT 05/07 [facility] [place] DISPOSITION & COMMUNICATION FOLLOW UP 3 WEEKS ELECTRONICALLY SIGNED BY ARLEY PACE MD, MD ON 05/11/2018 AT 02:32 PM EST DISCLAIMER : THIS IS A VISIT SUMMARY EXTRACTED FROM THE [employer] CHART. IT IS NOT A COPY OF THE [employer] PROGRESS NOTE. PAPA
== END ==
LOC: M PAIN 14:30
PROVIDERS: ATTEND Anesthesiology
DX: M79.18 Myalgia, other site (principal); M54.5 Low back pain; Z79.891 Long term (current) use of opiate analgesic; Z79.899 Other long term (current) drug therapy; Z87.891 Personal history of nicotine dependence
CPT/HCPCS: 20552; J3301

== ENCOUNTER → 2018-06-03 | Outpatient (CLI) | payer OTHER ==
[~2018-06-03] MED LIST changes: -BUPIVACAINE HCL 0.25% 10 ML VIAL As Ordered ONE; -BUPIVACAINE HCL 0.25% 30 ML VIAL As Ordered ONE; -TRIAMCINOLONE ACETONIDE SUSP 40 MG/ML VIAL (J3301) As Ordered ONE; -oxyCODONE 5MG TAB As Ordered ONE
--- NOTE | 2018-06-17 00:46 | ECWPNPC ---
PATIENT NAME: BEBE NERI : 1960 GENDER: MALE VISIT DATE: 06/03/2018 DISCHARGE DATE: 06/03/18 1437 VISIT LOCKED DATE TIME: PHYSICIAN: ARLEY PACE MD RESOURCE: ARLEY PACE MD REASON FOR APPOINTMENT 1. F/U PROCEDURE W/C HISTORY OF PRESENT ILLNESS HISTORY OF PRESENT ILLNESS: PAIN THE PATIENT DESCRIBES THE PAIN... 57 YEAR OLD MALE PATIENT WITH A HISTORY OF CHRONIC LOW BACK PAIN. THE PATIENT DESCRIBES THE PAIN ACHING, SORE, TENDER, SHARP, STABBING, SHOOTING, AND CONTINUOUS WITH A PAIN SCORE OF 5-9/10 AT THE BACK AND DOWN THE LEG. 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 THE PATIENT HAS HAD MULTIPLE BACK SURGERIES, BUT SAYS THAT THE PAIN HAS PERSISTED. THE PATIENT HAS TRIED PHYSICAL THERAPY IN THE PAST AND SAYS IT HAS NOT HELPED. THE PATIENT IS CURRENTLY USING NUCYNTA ER, PERCOCET, SOMA, AND CELEBREX TO AID IN PAIN RELIEF. THE PATIENT SAYS HE HAS DIFFICULTY DOING DAILY ACTIVITIES SUCH COOKING AND CLEANING, BUT SAYS THAT THE USE OF THESE MEDICATIONS HELP HIM REMAIN MOBILE AND FUNCTIONAL. PATIENT DENIES UNEXPLAINABLE WEIGHT LOSS, FEVER, CHILLS, NEW CHANGES ON HIS URINARY OR BOWEL CONTROL. FALL RISK SCREENING: SCREENING :NO FALLS IN THE PAST YEAR CURRENT MEDICATIONS TAKING NUCYNTA ER 100 MG TABLET EXTENDED RELEASE 12 HOUR 1 TABLET ORALLY EVERY 12 HRS MDD=2 TAKING SOMA 350 MG TABLET 1 TAB ORALLY DAILY AT BEDTIME NEEDED FOR SPASMS AND PAIN MDD=1 TAKING CELEBREX 200 MG CAPSULE 1 CAPSULE ORALLY ONCE A DAY NEEDED FOR PAIN TAKING PERCOCET 5-325 MG TABLET 1 TABLET ORALLY EVERY 4 -6 HOURS PRN PAIN MDD=4 MEDICATION LIST REVIEWED AND RECONCILED WITH THE PATIENT PAST MEDICAL HISTORY GERD CHRONIC BACK PAIN ALLERGIES N.K.D.A. SURGICAL HISTORY LOW BACK SURGURY 1997 L3, L4, L5 BACK SURGURY 2000 L4-L5 SURGERY 2011 FAMILY HISTORY FATHER: ALIVE 82 YRS MOTHER: 71 YRS, DIAGNOSED WITH OTHER SIBLINGS: ALIVE, BROTHER WITH BLADDER CANCER, [place], DIAGNOSED WITH HEART DISEASE, CANCER 4 BROTHER(S) , 2 SISTER(S) - HEALTHY. MOTHER FROM MS. SOCIAL HISTORY GENERAL: TOBACCO USE ARE YOU A:FORMER SMOKER ALCOHOL SCREENING DID YOU HAVE A DRINK CONTAINING ALCOHOL IN THE PAST YEAR?NO POINTS0 INTERPRETATIONNEGATIVE RECREATIONAL DRUG USE DRUG USE?NO CAFFEINE CAFFEINE USE?YES HOW OFTEN AND HOW MUCH? DAILY COFFEE CONFUCIANISM [id number] NONE NO YARSANISM BELIEFS THAT WOULD IMPACT HEALTH CARE. 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 EXERCISE: NO REGULAR EXERCISE. MARITAL STATUS: . OTHERS AT HOME: SPOUSE. FEMALE 6 MONTH RISK ASSESSMENT FOR STD SPOUSE. PAIN CLINIC PFS, CLERGY, PUBLIC HEALTH REFERRALS HAS THE PATIENT BEEN EDUCATED REGARDING HIS/HER PLAN OF CARE?YES HAS THE PATIENT BEEN EDUCATED REGARDING PAIN, THE RISK FOR PAIN, THE IMPORTANCE OF EFFECTIVE PAIN MANAGEMENT, AND THE PAIN ASSESSMENT PROCESS?YES ADVANCE DIRECTIVE ADVANCE DIRECTIVE DISCUSSED WITH PATIENT:YES HCP PARVEZ NERI, REVIEWED 11/07/17 1130 LAS. HOSPITALIZATION/MAJOR DIAGNOSTIC PROCEDURE SURGERIES REVIEW OF SYSTEMS REVIEWED BY: PROVIDER: ARLEY PACE MD . CONSTITUTIONAL: ANY CHANGE IN YOUR MEDICAL CONDITION? NO . CHILLS NO . FEVER NO . INFECTION: DO YOU HAVE NEW INFECTIONS? NO . DO YOU HAVE HISTORY OF MRSA? NO . MUSCULOSKELETAL: ANY NEW PATTERNS OF PAIN OR NUMBNESS? NO . GASTROENTEROLOGY: ANY NEW CHANGE IN BOWEL CONTROL? NO . GENITOURINARY: ANY NEW CHANGE IN BLADDER CONTROL? NO . IS THERE A CHANCE YOU COULD BE ? NO . HEMATOLOGY/LYMPH: DO YOU TAKE ANY BLOOD THINNERS? (FOR EXAMPLE- COUMADIN, PLAVIX, AGGRENOX, PLATEL, PRADAXA, OR XARELTO) NO . WHEN WAS YOUR LAST DOSE? DATE: TIME: . NEUROLOGY: HAVE YOU FALLEN IN THE PAST 12 MONTHS? NO . ANY NEW EXTREMITY NUMBNESS OR WEAKNESS? NO . CARDIOLOGY: DO YOU HAVE A PACEMAKER OR DEFIBRILLATOR? NO . RESPIRATORY: HAVE YOU BEEN SICK IN THE PAST WEEK? NO . FEVER NO . FLU LIKE SYMPTOMS? NO . COUGH NO . INTEGUMENTARY: DO YOU HAVE ANY RASHES OR OPEN SORES? NO . ALLERGIC/IMMUNO: ARE YOU ALLERGIC TO IV DYE? NO . ANY NEW ALLERGIES? NO . PSYCHIATRIC: DO YOU HAVE THOUGHTS OF HURTING YOURSELF OR SOMEONE ELSE? NO . ARE YOU ABUSED, NEGLECTED, OR IN AN UNSAFE ENVIRONMENT? NO . ENDOCRINOLOGY: ARE YOU DIABETIC? NO . OTHER: DO YOU NEED ANY PRESCRIPTIONS? YES . IF YES, PLEASE LIST: OXYCODONE . ANY NEW PROBLEMS WITH YOUR MEDICATIONS? NO . WHEN DID YOU LAST EAT? ____ . WHEN DID YOU LAST DRINK? ____ . WHAT DID YOU LAST DRINK? ____ . NAME OF PERSON DRIVING YOU HOME? ____ . DO YOU HAVE ANY OTHER QUESTIONS OR CONCERNS NO . VITAL SIGNS WT 220 LBS, HT 70 IN, BMI 31.56 INDEX, BP 143/83 MM HG, HR 84 /MIN, RR 18 /MIN, TEMP 97.3 F, OXYGEN SAT % 96%, NA INITIALS SC 13:44, REVIEWED BY: ONELIA. EXAMINATION GENERAL EXAMINATION: PATIENT IS ALERT O X 3 AND COOPERATIVE. PATIENT IS LIMPING FROM HIS LEFT LEG. LEFT LEG IS WEAKER AT EXTENSION AND FLEXION. STRAIGHT LEG RAISE OF THE LEFT LEG IS POSITIVE AT 30 DEGREES FOR RADICULOPATHY. MRI OF THE LUMBAR SPINE DONE ON 06/24/2014 SHOWS POST LAMINECTOMY CHANGES AT L5-S1 AND BULGING DISCS AT MULTIPLE LEVELS. ASSESSMENTS LUMBAR POST-LAMINECTOMY SYNDROME - M96.1 (PRIMARY) INTERVERTEBRAL DISC DISORDER WITH RADICULOPATHY OF LUMBOSACRAL REGION - M51.17 TREATMENT LUMBAR POST-LAMINECTOMY SYNDROME CLINICAL NOTES: WE DISCUSSED SEVERAL ISSUES WITH MR. NERI'S PAIN MANAGEMENT CASE. DUE TO THE LUMBAR RADICULOPATHY, I WOULD LIKE TO MOVE FORWARD WITH A LUMBAR EPIDURAL STEROID INJECTION AT THIS TIME. WE DISCUSSED THE BENEFITS, RISKS, AND ALTERNATIVES OF THE INJECTION AND THE PATIENT WOULD LIKE TO PROCEED. THE PATIENT WILL CONSIDER A TRANSFORAMINAL EPIDURAL IN THE FUTURE. WE WILL REDUCE THE NUCYNTA ER TO 1 TABLET PER DAY FOR THE SOMATIC PAIN AND THE SOMA TO 15 TABLETS PER MONTH FOR ACUTE SPASMS. THE PATIENT WILL CONTINUE USING CELEBREX AND PERCOCET FOR THE SOMATIC PAIN. ISTOP [id number] WAS REVIEWED. I WILL PERFORM A PILL COUNTING TODAY. URINE TOXICOLOGY DONE ON 12/06/2017 SHOWS CONCURRENT RESULTS. THE PATIENT WILL FOLLOW UP IN 2 MONTHS. INSTRUCTIONS WERE GIVEN, QUESTIONS WERE ANSWERED, PATIENT REPORTS UNDERSTANDING AND AGREES WITH THE PLAN. ITANK, DOCUMENTED THE ABOVE INFORMATION ACTING A SCRIBE FOR DR. PACE. I HAVE REVIEWED THE ABOVE DOCUMENT, WRITTEN BY TANK CEJAIBLuke AND I VERIFY THAT IT IS ACCURATE. OTHERS REFILL NUCYNTA ER TABLET EXTENDED RELEASE 12 HOUR, 100 MG, 1 TABLET, ORALLY, EVERY 12 HRS MDD=1, 30 DAY(S), 30, REFILLS 0 REFILL SOMA TABLET, 350 MG, 1 TAB, ORALLY, DAILY AT BEDTIME NEEDED FOR SPASMS AND PAIN MDD=1, 30 DAY(S), 15, REFILLS 0 REFILL CELEBREX CAPSULE, 200 MG, 1 CAPSULE, ORALLY, ONCE A DAY NEEDED FOR PAIN, 30 DAY(S), 30, REFILLS 0 REFILL PERCOCET TABLET, 5-325 MG, 1 TABLET, ORALLY, EVERY 4 -6 HOURS PRN PAIN MDD=4, 30 DAY(S), 120, REFILLS 0 START NUCYNTA ER TABLET EXTENDED RELEASE 12 HOUR, 100 MG, 1 TABLET, ORALLY FOR PAIN, EVERY 24 HRS MDD1, 30 DAY(S), 30, REFILLS 0 PROCEDURES PN WORKMANS' COMP OPINION IN YOUR OPINION, WAS THE INCIDENT THAT THE PATIENT DESCRIBED THE COMPETENT MEDICAL CAUSE OF THIS INJURY/ILLNESS? YES ARE THE PATIENT'S COMPLAINTS CONSISTENT WITH HIS/HER HISTORY OF THE INJURY/ILLNESS? YES IS THE PATIENT'S HISTORY OF THE INJURY/ILLNESS CONSISTENT WITH YOUR OBJECTIVE FINDING? YES WHAT IS THE PERCENTAGE OF TEMPORARY IMPAIRMENT? MARKED = 75% IS THE PATIENT WORKING? NO DOCTOR ON SITE: ARLEY HANKS MD PREVENTIVE MEDICINE PAIN CLINIC TEACHING: PROCEDURE TEACHING PRE-PROCEDURE INSTRUCTIONS REVIEWED WITH PT. VERBALIZED UNDERSTANDING.. PROCEDURE CODES FA211 ESTABILISHED PATIENT [facility] FACILITY CHARGE [id number] CURRENT MEDS W/DOSAGES DOCUMENTED G8730 PAIN ASSESS POS TOOL F/U PLAN DOC DISPOSITION & COMMUNICATION FOLLOW UP 2 MONTHS ELECTRONICALLY SIGNED BY ARLEY PACE MD, MD ON 06/16/2018 AT 05:47 PM EST DISCLAIMER : THIS IS A VISIT SUMMARY EXTRACTED FROM THE [employer] CHART. IT IS NOT A COPY OF THE [employer] PROGRESS NOTE. [employer]NERD
== END ==
LOC: M PAIN 13:45
PROVIDERS: ATTEND Anesthesiology
DX: M96.1 Postlaminectomy syndrome, not elsewhere classified (principal); M51.17 Intervertebral disc disorders with radiculopathy, lumbosacral region; Z79.891 Long term (current) use of opiate analgesic; Z79.899 Other long term (current) drug therapy; Z87.891 Personal history of nicotine dependence

== ENCOUNTER → 2018-09-18 | Outpatient (CLI) | payer OTHER ==
[~2018-09-18] MED LIST changes: -/CELE20CA PO; +ISOVUE-M 300 61% 15ML VIAL (Q9967) As Ordered ONE; +LIDOCAINE 1% SDV INJ 30 ML VIAL As Ordered ONE; +OXYC1TAB23 PO; -PERCOCET PO; +methylPREDNISolone SUSP 40 MG/ML (DEPO-medrol) VIAL (J1030) As Ordered ONE; +oxyCODONE 5MG TAB As Ordered ONE
--- NOTE | 2018-09-18 15:14 | REP ---
Partial lumbar spine series: Three views . History: Injection procedure for pain. Seven seconds of fluoroscopy time is reported. Findings: A sequence of three fluoroscopically obtained last image hold procedural spot radiographs of the lumbar spine document needle position and contrast injection associated with injection procedure. Electronically Signed by César De Los Santos MD 09/18/2018 03:06 P
--- NOTE | 2018-09-29 00:10 | ECWPNPC ---
PATIENT NAME: BEBE NERI : 1960 GENDER: MALE VISIT DATE: 09/18/2018 DISCHARGE DATE: 09/18/18 1505 VISIT LOCKED DATE TIME: PHYSICIAN: ARLEY PACE MD RESOURCE: ARLEY PACE MD REASON FOR APPOINTMENT 1. BIBIANA LESI HISTORY OF PRESENT ILLNESS HISTORY OF PRESENT ILLNESS: PAIN THE PATIENT DESCRIBES THE PAIN... FALL RISK SCREENING: SCREENING :NO FALLS REPORTED IN THE LAST YEAR CURRENT MEDICATIONS TAKING NUCYNTA ER 100 MG TABLET EXTENDED RELEASE 12 HOUR 1 TABLET ORALLY FOR PAIN EVERY 24 HRS MDD1, NOTES: 09/17/18 2100 TAKING CELEBREX 200 MG CAPSULE 1 CAPSULE ORALLY ONCE A DAY NEEDED FOR PAIN, NOTES: 09/17/18 1900 TAKING PERCOCET 5-325 MG TABLET 1 TABLET ORALLY EVERY 4 -6 HOURS PRN PAIN MDD=4, NOTES: 0900 TAKING SOMA 350 MG TABLET 1 TAB ORALLY DAILY AT BEDTIME NEEDED FOR SPASMS AND PAIN MDD=1, NOTES: 2 DAYS AGO NOT-TAKING NUCYNTA ER 100 MG TABLET EXTENDED RELEASE 12 HOUR 1 TABLET ORALLY EVERY 12 HRS MDD=1, NOTES: DUPLICATE MEDICATION LIST REVIEWED AND RECONCILED WITH THE PATIENT PAST MEDICAL HISTORY GERD CHRONIC BACK PAIN ALLERGIES N.K.D.A. SURGICAL HISTORY LOW BACK SURGURY 1997 L3, L4, L5 BACK SURGURY 2000 L4-L5 SURGERY 2011 FAMILY HISTORY FATHER: ALIVE 82 YRS MOTHER: 71 YRS, DIAGNOSED WITH OTHER SIBLINGS: ALIVE, BROTHER WITH BLADDER CANCER, [place], HEART DISEASE, CANCER 4 BROTHER(S) , 2 SISTER(S) - HEALTHY. MOTHER FROM [place]. SOCIAL HISTORY GENERAL: TOBACCO USE ARE YOU A:FORMER SMOKER OTHERS AT HOME: SPOUSE. 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 LANGUAGE LANGUAGES SPOKEN:SLOVAK RECREATIONAL DRUG USE DRUG USE?NO EXERCISE: NO REGULAR EXERCISE. LEARNING BARRIERS / SPECIAL NEEDS BARRIERS TO LEARNING?NO HEARING IMPAIRED?NO VISION IMPAIRED?YES :CORRECTIVE LENSES COGNITIVELY IMPAIRED?NO READINESS TO LEARN?YES LEARNING PREFERENCES?NO LEARNING CAPABILITIES PRESENT?YES EMOTIONAL BARRIERS?NO PAIN CLINIC PFS, CLERGY, PUBLIC HEALTH REFERRALS HAS THE PATIENT BEEN EDUCATED REGARDING HIS/HER PLAN OF CARE?YES HAS THE PATIENT BEEN EDUCATED REGARDING PAIN, THE RISK FOR PAIN, THE IMPORTANCE OF EFFECTIVE PAIN MANAGEMENT, AND THE PAIN ASSESSMENT PROCESS?YES LATEX QUESTIONNAIRE LATEX ALLERGY : HAVE YOU EVER DEVELOPED ANY TYPE OF REACTION AFTER HANDLING LATEX PRODUCTS SUCH RUBBER GLOVES, CONDOMS, DIAPHRAGMS, BALLOONS, SOCKS, OR UNDERWEAR?NO LATEX ALLERGY : HAVE YOU EVER DEVELOPED ANY TYPE OF REACTION DURING OR AFTER DENTAL APPOINTMENT, VAGINAL/RECTAL EXAMINATION, SURGICAL PROCEDURE, OR ANY OTHER EXPOSURE?NO LATEX RISK : HAVE YOU EVER HAD ANY DIFFICULTY BREATHING OR HIVES AFTER EATING OR HANDLING ANY FRUITS, OR VEGETABLES; SUCH KIWI, BANANAS, STONE FRUITS, OR CHESTNUTSNO LATEX RISK : DO YOU HAVE A PREVIOUS PERSONAL HISTORY OF MORE THAN NINE SURGERIES, SPINA BIFIDA, OR REPEATED CATHERTIZATIONS? NO LATEX RISK : ARE YOU FREQUENTLY EXPOSED TO LATEX PRODUCTS IN YOUR OCCUPATION?NO DATE ASKED : 09/18/2018 CAFFEINE CAFFEINE USE?YES HOW OFTEN AND HOW MUCH? DAILY COFFEE ADVANCE DIRECTIVE ADVANCE DIRECTIVE DISCUSSED WITH PATIENT:YES HCP PARVEZ NERI, QUAKER [id number] NONE NO LUTHERAN BELIEFS THAT WOULD IMPACT HEALTH CARE. MARITAL STATUS: . FEMALE 6 MONTH RISK ASSESSMENT FOR STD SPOUSE. 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 REVIEWED 11/07/17 1130 LASREVIEWED WITH PATIENT 09/18/18 1314 JS. HOSPITALIZATION/MAJOR DIAGNOSTIC PROCEDURE SURGERIES REVIEW OF SYSTEMS REVIEWED BY: PROVIDER: . CONSTITUTIONAL: ANY CHANGE IN YOUR MEDICAL CONDITION? NO . CHILLS NO . FEVER NO . INFECTION: DO YOU HAVE NEW INFECTIONS? NO . DO YOU HAVE HISTORY OF MRSA? NO . MUSCULOSKELETAL: ANY NEW PATTERNS OF PAIN OR NUMBNESS? NO . GASTROENTEROLOGY: ANY NEW CHANGE IN BOWEL CONTROL? NO . GENITOURINARY: ANY NEW CHANGE IN BLADDER CONTROL? NO . IS THERE A CHANCE YOU COULD BE ? NO . HEMATOLOGY/LYMPH: DO YOU TAKE ANY BLOOD THINNERS? (FOR EXAMPLE- COUMADIN, PLAVIX, AGGRENOX, PLATEL, PRADAXA, OR XARELTO) NO . WHEN WAS YOUR LAST DOSE? DATE: TIME: . NEUROLOGY: HAVE YOU FALLEN IN THE PAST 12 MONTHS? NO . ANY NEW EXTREMITY NUMBNESS OR WEAKNESS? NO . CARDIOLOGY: DO YOU HAVE A PACEMAKER OR DEFIBRILLATOR? NO . RESPIRATORY: HAVE YOU BEEN SICK IN THE PAST WEEK? NO . FEVER NO . FLU LIKE SYMPTOMS? NO . COUGH NO . INTEGUMENTARY: DO YOU HAVE ANY RASHES OR OPEN SORES? NO . ALLERGIC/IMMUNO: ARE YOU ALLERGIC TO IV DYE? NO . ANY NEW ALLERGIES? NO . PSYCHIATRIC: DO YOU HAVE THOUGHTS OF HURTING YOURSELF OR SOMEONE ELSE? NO . ARE YOU ABUSED, NEGLECTED, OR IN AN UNSAFE ENVIRONMENT? NO . ENDOCRINOLOGY: ARE YOU DIABETIC? NO . OTHER: DO YOU NEED ANY PRESCRIPTIONS? NO . IF YES, PLEASE LIST: ____ . ANY NEW PROBLEMS WITH YOUR MEDICATIONS? NO . WHEN DID YOU LAST EAT? ____09/17/18 1800 . WHEN DID YOU LAST DRINK? ____09/18/18 0900 . WHAT DID YOU LAST DRINK? ____WATER . NAME OF PERSON DRIVING YOU HOME? ____PARVEZ SWANK . DO YOU HAVE ANY OTHER QUESTIONS OR CONCERNS NO . VITAL SIGNS WT 219.2 LBS, HT 70 IN, BMI 31.45 INDEX, BP 118/75 MM HG, HR 77 /MIN, RR 18 /MIN, TEMP 98.4 F, OXYGEN SAT % 94%, SAFE IN ENV? (Y/N) YES, NA INITIALS IN 13:05, REVIEWED BY: BIPIN. ASSESSMENTS INTERVERTEBRAL DISC DISORDER WITH RADICULOPATHY OF LUMBOSACRAL REGION - M51.17 (PRIMARY) LUMBOSACRAL SPINAL STENOSIS - M48.07 TREATMENT INTERVERTEBRAL DISC DISORDER WITH RADICULOPATHY OF LUMBOSACRAL REGION [facility] FLUORO GUIDE SPINE INJECTION (PAIN)[id number] PROCEDURES PN WORKMANS' COMP OPINION IN YOUR OPINION, WAS THE INCIDENT THAT THE PATIENT DESCRIBED THE COMPETENT MEDICAL CAUSE OF THIS INJURY/ILLNESS? YES ARE THE PATIENT'S COMPLAINTS CONSISTENT WITH HIS/HER HISTORY OF THE INJURY/ILLNESS? YES IS THE PATIENT'S HISTORY OF THE INJURY/ILLNESS CONSISTENT WITH YOUR OBJECTIVE FINDING? YES WHAT IS THE PERCENTAGE OF TEMPORARY IMPAIRMENT? MARKED = 75% IS THE PATIENT WORKING? NO DOCTOR ON SITE: ARLEY HANKS MD PRE PROCEDURE DIAGNOSIS LUMBOSACRAL DISC DISORDER WITH RADICULOPATHY, LUMBOSACRAL SPINAL STENOSIS POST PROCEDURE DIAGNOSIS LUMBOSACRAL DISC DISORDER WITH RADICULOPATHY , LUMBOSACRAL SPINAL STENOSIS PROCEDURE LUMBAR EPIDURAL STEROID INJECTION UNDER FLUOROSCOPIC GUIDANCE SURGEON DR. ARLEY PACE TRUCK DESPATCHER NONE ANESTHESIA LOCAL PRE PROCEDURE NOTE THE PATIENT HAS A HISTORY OF CHRONIC LOW BACK PAIN. I EVALUATE THE PATIENT AND REVIEWED THE CHART. I WENT OVER THE RISKS, ALTERNATIVES, AND BENEFITS ASSOCIATED WITH THIS PROCEDURE. THE PATIENT WOULD LIKE TO PROCEED AND GIVE CONSENT TO PERFORMED THE PROCEDURE. THE PATIENT DENIES UNEXPLAINABLE WEIGHT LOSS, FEVER, CHILLS, OR NEW CHANGES IN URINARY OR BOWEL CONTROL. DESCRIPTION OF PROCEDURE THE PATIENT WAS BROUGHT TO THE PROCEDURE ROOM AND PLACED IN THE PRONE POSITION. THE LUMBOSACRAL AREA WAS CLEANED WITH BETADINE SOLUTION AND DRAPED ASEPTICALLY. THE PROCEDURE WAS DONE UNDER STERILE CONDITIONS. I CHECKED LATERALITY AND THE LEVEL WHERE THE PROCEDURE WAS GOING TO BE PERFORMED WITH THE PATIENT AND THE SUPPORTING STAFF AT THE MOMENT OF THE TIME OUT IN THE PROCEDURE ROOM. UNDER FLUOROSCOPIC GUIDANCE, THE TARGET POINT WAS SELECTED AT THE INTERLAMINAR LEVEL OF L5-S1. LIDOCAINE WAS USED TO NUMB THE SKIN AND THE SUBCUTANEOUS TISSUE BELOW IT. EPIDURAL TUOHY NEEDLE, 17-GAUGE, WAS ADVANCED UNDER FLUOROSCOPIC GUIDANCE AND FOLLOWING PATIENT FEEDBACK UNTIL THE EPIDURAL SPACE WAS REACHED, 7 CM DEEP INTO THE SKIN BY THE LOSS OF RESISTANCE TECHNIQUE. ISOVUE M DYE 30%, 0.25 ML, WAS INJECTED SHOWING ADEQUATE SPREAD OF THE DYE. THEN, A SOLUTION OF 3 ML OF NORMAL SALINE WITH DEPO-MEDROL 60 MG WAS INJECTED SLOWLY FOLLOWING PATIENT FEEDBACK. THERE WAS NO EVIDENCE OF BLOOD, PARESTHESIA OR CEREBROSPINAL FLUID DURING THE PROCEDURE. THE PATIENT WAS SENT TO THE RECOVERY ROOM. THE PATIENT WAS MOVING THE EXTREMITIES AND DOING WELL. THERE WAS NO COMPLICATION DURING THE PROCEDURE. FLUOROSCOPY TIME WAS 7 SECONDS. POST PROCEDURE NOTE THE PATIENT WILL BE SEEN IN A FOLLOW UP IN THE NEXT FEW WEEKS. INSTRUCTIONS WERE GIVEN, QUESTIONS WERE ANSWERED, AND THE PATIENT EXPRESSED UNDERSTANDING AND AGREES WITH THE PLAN. I, TANK OATES, DOCUMENTED THE ABOVE INFORMATION ACTING A SCRIBE FOR DR. PCAE. I HAVE REVIEWED THE ABOVE DOCUMENT, WRITTEN BY TANK YEAGER AND I VERIFY THAT IT IS ACCURATE. PROCEDURE CODES 6045F RADXPS IN END [id number] PXD [id number] LUMBAR/SACRAL W/ IMAGING DISPOSITION & COMMUNICATION FOLLOW UP 2 WEEKS ELECTRONICALLY SIGNED BY ARLEY PACE MD, MD ON 09/28/2018 AT 08:34 AM EDT DISCLAIMER : THIS IS A VISIT SUMMARY EXTRACTED FROM THE [employer] CHART. IT IS NOT A COPY OF THE [employer] PROGRESS NOTE. MTDD
== END ==
LOC: M PAIN 13:15
PROVIDERS: ATTEND Anesthesiology
DX: G89.29 Other chronic pain (principal); M51.17 Intervertebral disc disorders with radiculopathy, lumbosacral region; M48.07 Spinal stenosis, lumbosacral region; Z79.891 Long term (current) use of opiate analgesic; Z79.899 Other long term (current) drug therapy; Z87.891 Personal history of nicotine dependence
CPT/HCPCS: 62323; J1030; Q9967

== ENCOUNTER → 2018-12-12 | Outpatient (CLI) | payer OTHER ==
[~2018-12-12] MED LIST changes: -ISOVUE-M 300 61% 15ML VIAL (Q9967) As Ordered ONE; -LIDOCAINE 1% SDV INJ 30 ML VIAL As Ordered ONE; -methylPREDNISolone SUSP 40 MG/ML (DEPO-medrol) VIAL (J1030) As Ordered ONE; -oxyCODONE 5MG TAB As Ordered ONE
--- NOTE | 2018-12-24 01:14 | ECWPNPC ---
PATIENT NAME: BEEB NERI : 1960 GENDER: MALE VISIT DATE: 12/12/2018 DISCHARGE DATE: 12/12/18 1544 VISIT LOCKED DATE TIME: PHYSICIAN: ARLEY PACE MD RESOURCE: ARLEY PACE MD REASON FOR APPOINTMENT 1. W/C LOW BACK /KNEE HISTORY OF PRESENT ILLNESS HISTORY OF PRESENT ILLNESS: PAIN THE PATIENT DESCRIBES THE PAIN... 57 YEAR OLD MALE PATIENT WITH A HISTORY OF CHRONIC LOW BACK PAIN. THE PATIENT DESCRIBES THE PAIN ACHING, BURNING, SORE, SHARP, STABBING, SHOOTING, DAILY, AND CONTINUOUS WITH A PAIN SCORE OF 5-9/10 DEPENDING ON PHYSICAL ACTIVITY. 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 THE PATIENT STATES HE IS EXPERIENCING LOW BACK PAIN, WITH MORE PAIN ON THE RIGHT SIDE. THE PATIENT SAYS HE HAS HAD MULTIPLE BACK SURGERIES, YET THE PAIN STILL PERSISTS. THE PATIENT RECEIVED A LUMBAR EPIDURAL ON 09/18/2018, WHICH HE SAYS PROVIDED HIM WITH GOOD PAIN RELIEF FOR OVER 2 MONTHS AND HELPED WITH HIS MOBILITY. THE PATIENT SAYS HE IS STILL EXPERIENCING SOME PAIN RELIEF FROM THE EPIDURAL, SUCH HIS LEFT LEG AND KNEE PAIN IS BETTER AND HE IS ABLE TO MOVE AROUND MORE, HOWEVER HIS PAIN IS RETURNING. THE PATIENT SAYS HE WAS ABLE TO ONLY WALK FOR 5 MINUTES BEFORE HAVING TO REST BEFORE THE PROCEDURE, BUT AFTER THE EPIDURAL HE WAS ABLE TO WALK UP TO 20 MINUTES BEFORE RESTING. THE PATIENT STATES THE EPIDURAL ALSO HELPED HIM BE ABLE TO PERFORM HIS DAILY ACTIVITIES SUCH CLEANING HIS HOUSE, SLEEPING BETTER, AND GROCERY SHOPPING. THE PATIENT SAYS HE IS USING PERCOCET UP TO 4 TABLETS DAILY, NUCYNTA 1 TABLET DAILY, REDUCING SOMA TO 1 TABLET EVERY 3 DAYS, AND CELEBREX 200 MG 1 CAPSULE DAILY TO OPEN DEVELOPER OPERATOR IN PAIN RELIEF. PATIENT DENIES UNEXPLAINABLE WEIGHT LOSS, FEVER, CHILLS, NEW CHANGES ON HIS URINARY OR BOWEL CONTROL. FALL RISK SCREENING: SCREENING :NO FALLS REPORTED IN THE LAST YEAR CURRENT MEDICATIONS TAKING PERCOCET 5-325 MG TABLET 1 TABLET ORALLY EVERY 4 -6 HOURS PRN PAIN MDD=4, NOTES: 0900 TAKING SOMA 350 MG TABLET 1 TAB ORALLY DAILY AT BEDTIME NEEDED FOR SPASMS AND PAIN MDD=1, NOTES: 2 DAYS AGO TAKING NUCYNTA ER 100 MG TABLET EXTENDED RELEASE 12 HOUR 1 TABLET ORALLY FOR PAIN EVERY 24 HRS MDD1, NOTES: 09/17/18 2100 TAKING CELEBREX 200 MG CAPSULE 1 CAPSULE ORALLY ONCE A DAY NEEDED FOR PAIN, NOTES: 09/17/18 1900 DISCONTINUED NUCYNTA ER 100 MG TABLET EXTENDED RELEASE 12 HOUR 1 TABLET ORALLY EVERY 12 HRS MDD=1, NOTES: DUPLICATE MEDICATION LIST REVIEWED AND RECONCILED WITH THE PATIENT PAST MEDICAL HISTORY GERD CHRONIC BACK PAIN ALLERGIES N.K.D.A. SURGICAL HISTORY LOW BACK SURGURY 1997 L3, L4, L5 BACK SURGURY 2000 L4-L5 SURGERY 2011 FAMILY HISTORY FATHER: ALIVE 82 YRS MOTHER: 71 YRS, DIAGNOSED WITH OTHER SIBLINGS: ALIVE, BROTHER WITH BLADDER CANCER, [place], HEART DISEASE, CANCER 4 BROTHER(S) , 2 SISTER(S) - HEALTHY. MOTHER FROM MS. SOCIAL HISTORY GENERAL: TOBACCO USE ARE YOU A:FORMER SMOKER OTHERS AT HOME: SPOUSE. 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 LANGUAGE LANGUAGES SPOKEN:ARMENIAN RECREATIONAL DRUG USE DRUG USE?NO EXERCISE: NO REGULAR EXERCISE. LEARNING BARRIERS / SPECIAL NEEDS BARRIERS TO LEARNING?NO HEARING IMPAIRED?NO VISION IMPAIRED?YES :CORRECTIVE LENSES COGNITIVELY IMPAIRED?NO READINESS TO LEARN?YES LEARNING PREFERENCES?NO LEARNING CAPABILITIES PRESENT?YES EMOTIONAL BARRIERS?NO PAIN CLINIC PFS, CLERGY, PUBLIC HEALTH REFERRALS HAS THE PATIENT BEEN EDUCATED REGARDING HIS/HER PLAN OF CARE?YES HAS THE PATIENT BEEN EDUCATED REGARDING PAIN, THE RISK FOR PAIN, THE IMPORTANCE OF EFFECTIVE PAIN MANAGEMENT, AND THE PAIN ASSESSMENT PROCESS?YES LATEX QUESTIONNAIRE LATEX ALLERGY : HAVE YOU EVER DEVELOPED ANY TYPE OF REACTION AFTER HANDLING LATEX PRODUCTS SUCH RUBBER GLOVES, CONDOMS, DIAPHRAGMS, BALLOONS, SOCKS, OR UNDERWEAR?NO LATEX ALLERGY : HAVE YOU EVER DEVELOPED ANY TYPE OF REACTION DURING OR AFTER DENTAL APPOINTMENT, VAGINAL/RECTAL EXAMINATION, SURGICAL PROCEDURE, OR ANY OTHER EXPOSURE?NO LATEX RISK : HAVE YOU EVER HAD ANY DIFFICULTY BREATHING OR HIVES AFTER EATING OR HANDLING ANY FRUITS, OR VEGETABLES; SUCH KIWI, BANANAS, STONE FRUITS, OR CHESTNUTSNO LATEX RISK : DO YOU HAVE A PREVIOUS PERSONAL HISTORY OF MORE THAN NINE SURGERIES, SPINA BIFIDA, OR REPEATED CATHERIZATIONS? NO LATEX RISK : ARE YOU FREQUENTLY EXPOSED TO LATEX PRODUCTS IN YOUR OCCUPATION?NO DATE ASKED : 12/12/2018 CAFFEINE CAFFEINE USE?YES HOW OFTEN AND HOW MUCH? DAILY COFFEE ADVANCE DIRECTIVE ADVANCE DIRECTIVE DISCUSSED WITH PATIENT:YES HCP PARVEZ NERI, LUTHERAN [id number] NONE NO CHRISTIANITY BELIEFS THAT WOULD IMPACT HEALTH CARE. MARITAL STATUS: . FEMALE 6 MONTH RISK ASSESSMENT FOR STD SPOUSE. 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 REVIEWED 11/07/17 1130 LASREVIEWED WITH PATIENT 09/18/18 1314 JSREVIEWED WITH PT. 12/12/18 VD. HOSPITALIZATION/MAJOR DIAGNOSTIC PROCEDURE SURGERIES REVIEW OF SYSTEMS REVIEWED BY: PROVIDER: ARLEY PACE MD . CONSTITUTIONAL: ANY CHANGE IN YOUR MEDICAL CONDITION? NO . CHILLS NO . FEVER NO . INFECTION: DO YOU HAVE NEW INFECTIONS? NO . DO YOU HAVE HISTORY OF MRSA? NO . MUSCULOSKELETAL: ANY NEW PATTERNS OF PAIN OR NUMBNESS? YES . GASTROENTEROLOGY: ANY NEW CHANGE IN BOWEL CONTROL? NO . GENITOURINARY: ANY NEW CHANGE IN BLADDER CONTROL? NO . IS THERE A CHANCE YOU COULD BE ? NO . HEMATOLOGY/LYMPH: DO YOU TAKE ANY BLOOD THINNERS? (FOR EXAMPLE- COUMADIN, PLAVIX, AGGRENOX, PLATEL, PRADAXA, OR XARELTO) NO . WHEN WAS YOUR LAST DOSE? DATE: TIME: . NEUROLOGY: HAVE YOU FALLEN IN THE PAST 12 MONTHS? NO . ANY NEW EXTREMITY NUMBNESS OR WEAKNESS? NO . CARDIOLOGY: DO YOU HAVE A PACEMAKER OR DEFIBRILLATOR? NO . RESPIRATORY: HAVE YOU BEEN SICK IN THE PAST WEEK? NO . FEVER NO . FLU LIKE SYMPTOMS? NO . COUGH NO . INTEGUMENTARY: DO YOU HAVE ANY RASHES OR OPEN SORES? NO . ALLERGIC/IMMUNO: ARE YOU ALLERGIC TO IV DYE? NO . ANY NEW ALLERGIES? NO . PSYCHIATRIC: DO YOU HAVE THOUGHTS OF HURTING YOURSELF OR SOMEONE ELSE? NO . ARE YOU ABUSED, NEGLECTED, OR IN AN UNSAFE ENVIRONMENT? NO . ENDOCRINOLOGY: ARE YOU DIABETIC? NO . OTHER: DO YOU NEED ANY PRESCRIPTIONS? NO . IF YES, PLEASE LIST: ____ . ANY NEW PROBLEMS WITH YOUR MEDICATIONS? NO . WHEN DID YOU LAST EAT? ____ . WHEN DID YOU LAST DRINK? ____ . WHAT DID YOU LAST DRINK? ____ . NAME OF PERSON DRIVING YOU HOME? ____ . DO YOU HAVE ANY OTHER QUESTIONS OR CONCERNS NO . VITAL SIGNS WT 225.8 LBS, HT 70 IN, BMI 32.40 INDEX, BP 110/70 MM HG, HR 79 /MIN, RR 18 /MIN, TEMP 98.6 F, OXYGEN SAT % 95%, NA INITIALS AW 1405. EXAMINATION GENERAL EXAMINATION: PATIENT IS ALERT O X 3 AND COOPERATIVE. TENDERNESS IN THE LOW BACK, ESPECIALLY ON THE RIGHT SIDE. ANTALGIC WALK. TENDERNESS OVER THE RIGHT KNEE. PAIN INCREASES OVER THE RIGHT AND LEFT LUMBAR FACET JOINTS WITH EXTENSION AND LATERAL ROTATION OF THE BACK. MRI OF THE LUMBAR SPINE DONE ON 06/24/2014 SHOWS LAMINECTOMY CHANGES TOWARDS THE LEFT SIDE, LUMBAR POST LAMINECTOMY CHANGES, AND FACET ARTHROPATHY CHANGES. ASSESSMENTS SPONDYLOSIS OF LUMBAR REGION WITHOUT MYELOPATHY OR RADICULOPATHY - M47.816 (PRIMARY) LUMBAR POST-LAMINECTOMY SYNDROME - M96.1 SPONDYLOSIS OF LUMBOSACRAL REGION WITHOUT MYELOPATHY OR RADICULOPATHY - M47.817 PAIN IN LEFT KNEE - M25.562 OTHER CHRONIC PAIN - G89.29 LOW BACK PAIN - M54.5 TREATMENT SPONDYLOSIS OF LUMBAR REGION WITHOUT MYELOPATHY OR RADICULOPATHY CLINICAL NOTES: WE DISCUSSED SEVERAL ISSUES WITH MR. NERI'S PAIN MANAGEMENT CASE. I DISCUSSED WITH THE PATIENT ABOUT REDUCING HIS MEDICATIONS, BUT IT IS SUMMER AND HE HAS A LOT OF SUMMER PHYSICAL ACTIVITIES SO WE AGREED TO WAIT TO REDUCE ALL MEDICATIONS. THE PATIENT HAS BEEN REDUCING HIS SOMA MEDICATIONS DOWN TO 1 TABLET EVERY 3 DAYS. THEREFORE, I WILL REFILL THE SOMA 350 MG 12 TABLETS FOR THE MONTH. I ALSO REFILLED THE PERCOCET AND NUCYNTA TODAY. THE PATIENT HAS BEEN EXPERIENCING SOME GOOD PAIN RELIEF FOR THE PAIN DOWN HIS LEGS FROM HIS LAST LUMBAR EPIDURAL DONE ON 09/18/2018, HOWEVER HIS PAIN IS NOW RETURNING AND HE IS EXPERIENCING MORE PAIN IN HIS LOW BACK OVER THE LAST MONTH. DUE TO THE LUMBAR SPONDYLOSIS AND ACUTE LOW BACK PAIN, I WOULD LIKE TO MOVE FORWARD WITH A BILATERAL L4-L5, L5-S1 THERAPEUTIC LUMBAR FACET BLOCK AT THIS TIME. WE DISCUSSED THE BENEFITS, RISKS, AND ALTERNATIVES OF THE INJECTION AND THE PATIENT WOULD LIKE TO PROCEED. I AM LOOKING FOR LONG LASTING PAIN RELIEF FROM THIS PROCEDURE FOR THE PATIENT. I PLAN TO CONTINUE REDUCING THE PATIENT'S MEDICATIONS AFTER THIS INJECTION, AND THE PATIENT AGREES WITH THIS PLAN. I ALSO DISCUSSED WITH THE PATIENT THAT HE MAY BE A GOOD CANDIDATE FOR COOL RADIOFREQUENCY ABLATION IN THE FUTURE ONCE THE EQUIPMENT IS RECEIVED IN A FEW MONTHS. I EXPLAINED TO THE PATIENT THE RISKS ALTERNATIVES AND BENEFITS ASSOCIATED WITH THE USE OF NSAID'S. THE PATIENT UNDERSTOOD THAT THE USE OF NSAID'S MAY BE ASSOCIATED WITH THE DEVELOPMENT OF GASTRIC IRRITATION AND ULCERS, WITH THE DEVELOPMENT OF KIDNEY PROBLEMS AND WITH THE POSSIBILITY OF DEVELOPING CARDIAC EVENTS SUCH STOKE OR CARDIAC DISEASES. THEREFORE, THE PATIENT WILL STOP CELEBREX 200 MG FOR NOW. LAST URINE TOXICOLOGY DONE ON 12/06/2017 SHOWS CONCURRENT RESULTS. ANOTHER UTOX WILL BE PERFORMED TODAY. ISTOP __# [id number] WAS REVIEWED. THE PATIENT WAS ADVISED TO BRING HIS MEDICATIONS TO EACH VISIT. THE PATIENT WILL FOLLOW UP WITH THE NURSE PRACTITIONER IN 2 MONTHS AFTER THE PROCEDURE. INSTRUCTIONS WERE GIVEN, QUESTIONS WERE ANSWERED, PATIENT REPORTS UNDERSTANDING AND AGREES WITH THE PLAN. I WAS WITH THE PATIENT IN THE ROOM OVER 30 MINUTES MORE THAN HALF OF THE TIME WAS DISCUSSING OPTIONS IN HIS TREATMENT, MEDICATIONS,CLARIFYING ISSUES ASSOCIATED WITH HIS MEDICAL CARE. I, DEZ MARROQUIN, DOCUMENTED THE ABOVE INFORMATION ACTING A SCRIBE FOR DR. PACE. I HAVE REVIEWED THE ABOVE DOCUMENT, WRITTEN BY DEZ MARROQUIN SCRIBLuke AND I VERIFY THAT IT IS ACCURATE. . OTHERS REFILL PERCOCET TABLET, 5-325 MG, 1 TABLET, ORALLY, EVERY 4 -6 HOURS PRN PAIN MDD=4, 30 DAY(S), 120, REFILLS 0, NOTES: 0900 REFILL SOMA TABLET, 350 MG, 1 TAB, ORALLY, DAILY AT BEDTIME NEEDED FOR SPASMS AND PAIN MDD=1, 30 DAY(S), 12, REFILLS 0, NOTES: 2 DAYS AGO REFILL NUCYNTA ER TABLET EXTENDED RELEASE 12 HOUR, 100 MG, 1 TABLET, ORALLY FOR PAIN, EVERY 24 HRS MDD1, 30 DAY(S), 30, REFILLS 0, NOTES: 09/17/18 2100 PROCEDURES PN WORKMANS' COMP OPINION IN YOUR OPINION, WAS THE INCIDENT THAT THE PATIENT DESCRIBED THE COMPETENT MEDICAL CAUSE OF THIS INJURY/ILLNESS? YES ARE THE PATIENT'S COMPLAINTS CONSISTENT WITH HIS/HER HISTORY OF THE INJURY/ILLNESS? YES IS THE PATIENT'S HISTORY OF THE INJURY/ILLNESS CONSISTENT WITH YOUR OBJECTIVE FINDING? YES WHAT IS THE PERCENTAGE OF TEMPORARY IMPAIRMENT? MARKED = 75% IS THE PATIENT WORKING? NO DOCTOR ON SITE: ARLEY HANKS MD PROCEDURE CODES FA211 ESTABILISHED PATIENT [facility] FACILITY CHARGE G8427 CURRENT MEDS W/DOSAGES DOCUMENTED [id number] PAIN ASSESS POS TOOL F/U PLAN DOC DISPOSITION & COMMUNICATION FOLLOW UP 2 MONTHS (REASON: LTFB FOR ACUTE PAIN, F/U WITH BILLIARD TABLE MECHANIC ADAM) ELECTRONICALLY SIGNED BY ARLEY PACE MD, MD ON 12/23/2018 AT 12:35 PM EDT DISCLAIMER : THIS IS A VISIT SUMMARY EXTRACTED FROM THE [employer] CHART. IT IS NOT A COPY OF THE [employer] PROGRESS NOTE. PAPA
== END ==
LOC: M PAIN 14:30
PROVIDERS: ATTEND Anesthesiology
DX: M47.816 Spondylosis without myelopathy or radiculopathy, lumbar region (principal); M96.1 Postlaminectomy syndrome, not elsewhere classified; M47.817 Spondylosis without myelopathy or radiculopathy, lumbosacral region; M25.562 Pain in left knee; G89.29 Other chronic pain; M54.5 Low back pain; Z87.891 Personal history of nicotine dependence; Z79.891 Long term (current) use of opiate analgesic; Z79.899 Other long term (current) drug therapy

== ENCOUNTER → 2019-03-26 | Outpatient (CLI) | payer OTHER ==
--- NOTE | 2019-03-28 00:15 | ECWPNPC ---
PATIENT NAME: BEBE NERI : 1960 GENDER: MALE VISIT DATE: 03/26/2019 DISCHARGE DATE: 03/26/19 1548 VISIT LOCKED DATE TIME: PHYSICIAN: ADAM JAMESON RESOURCE: ADAM JAMESON REASON FOR APPOINTMENT 1. W/C PER DR Mejias HISTORY OF PRESENT ILLNESS HISTORY OF PRESENT ILLNESS: PAIN THE PATIENT DESCRIBES THE PAIN... THE PATIENT DESCRIBES THE PAIN... 57 YEAR OLD MALE PATIENT WITH A HISTORY OF CHRONIC LOW BACK PAIN. THE PATIENT DESCRIBES THE PAIN ACHING, BURNING, SORE, SHARP, STABBING, SHOOTING, DAILY, AND CONTINUOUS WITH A PAIN SCORE OF 8/10 DEPENDING ON PHYSICAL ACTIVITY. 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 THE PATIENT STATES HE IS EXPERIENCING LOW BACK PAIN, WITH MORE PAIN ON THE RIGHT SIDE. THE PATIENT SAYS HE HAS HAD MULTIPLE BACK SURGERIES, YET THE PAIN STILL PERSISTS. THE PATIENT RECEIVED A LUMBAR EPIDURAL ON 09/18/2018, WHICH HE SAYS PROVIDED HIM WITH GOOD PAIN RELIEF FOR OVER 2 MONTHS AND HELPED WITH HIS MOBILITY. THE PATIENT SAYS HE WAS ABLE TO ONLY WALK FOR 5 MINUTES BEFORE HAVING TO REST BEFORE THE PROCEDURE, BUT AFTER THE EPIDURAL HE WAS ABLE TO WALK UP TO 20 MINUTES BEFORE RESTING. THE PATIENT STATES THE EPIDURAL ALSO HELPED HIM BE ABLE TO PERFORM HIS DAILY ACTIVITIES SUCH CLEANING HIS HOUSE, SLEEPING BETTER, AND GROCERY SHOPPING. THE PATIENT SAYS HE IS USING PERCOCET UP TO 4 TABLETS DAILY, NUCYNTA 1 TABLET DAILY, REDUCING SOMA TO 1 TABLET EVERY 3 DAYS, AND CELEBREX 200 MG 1 CAPSULE DAILY TO SWEATER DESIGNER IN PAIN RELIEF. FALL RISK SCREENING: SCREENING :NO FALLS REPORTED IN THE LAST YEAR CURRENT MEDICATIONS TAKING CELEBREX 200 MG CAPSULE 1 CAPSULE ORALLY ONCE A DAY NEEDED FOR PAIN TAKING PERCOCET 5-325 MG TABLET 1 TABLET ORALLY EVERY 4 -6 HOURS PRN PAIN MDD=4 TAKING SOMA 350 MG TABLET 1 TAB ORALLY DAILY AT BEDTIME NEEDED FOR SPASMS AND PAIN MDD=1 TAKING NUCYNTA ER 100 MG TABLET EXTENDED RELEASE 12 HOUR 1 TABLET ORALLY FOR PAIN EVERY 24 HRS MDD1 MEDICATION LIST REVIEWED AND RECONCILED WITH THE PATIENT PAST MEDICAL HISTORY GERD CHRONIC BACK PAIN ALLERGIES N.K.D.A. SURGICAL HISTORY LOW BACK SURGURY 1997 L3, L4, L5 BACK SURGURY 2000 L4-L5 SURGERY 2012 FAMILY HISTORY FATHER: ALIVE 82 YRS MOTHER: 71 YRS, DIAGNOSED WITH OTHER SPECIFIED CONDITIONS INFLUENCING HEALTH STATUS SIBLINGS: ALIVE, BROTHER WITH BLADDER CANCER, [place], UNSPECIFIED HEART DISEASE, OTHER MALIGNANT NEOPLASM OF UNSPECIFIED SITE 4 BROTHER(S) , 2 SISTER(S) - HEALTHY. MOTHER FROM MS. SOCIAL HISTORY GENERAL: TOBACCO USE ARE YOU A:FORMER SMOKER OTHERS AT HOME: SPOUSE. 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 LANGUAGE LANGUAGES SPOKEN:CAMBODIAN RECREATIONAL DRUG USE DRUG USE?NO EXERCISE: NO REGULAR EXERCISE. LEARNING BARRIERS / SPECIAL NEEDS BARRIERS TO LEARNING?NO HEARING IMPAIRED?NO VISION IMPAIRED?YES COGNITIVELY IMPAIRED?NO :CORRECTIVE LENSES READINESS TO LEARN?YES LEARNING PREFERENCES?NO LEARNING CAPABILITIES PRESENT?YES EMOTIONAL BARRIERS?NO PAIN CLINIC PFS, CLERGY, PUBLIC HEALTH REFERRALS HAS THE PATIENT BEEN EDUCATED REGARDING HIS/HER PLAN OF CARE?YES HAS THE PATIENT BEEN EDUCATED REGARDING PAIN, THE RISK FOR PAIN, THE IMPORTANCE OF EFFECTIVE PAIN MANAGEMENT, AND THE PAIN ASSESSMENT PROCESS?YES LATEX QUESTIONNAIRE LATEX ALLERGY : HAVE YOU EVER DEVELOPED ANY TYPE OF REACTION AFTER HANDLING LATEX PRODUCTS SUCH RUBBER GLOVES, CONDOMS, DIAPHRAGMS, BALLOONS, SOCKS, OR UNDERWEAR?NO LATEX ALLERGY : HAVE YOU EVER DEVELOPED ANY TYPE OF REACTION DURING OR AFTER DENTAL APPOINTMENT, VAGINAL/RECTAL EXAMINATION, SURGICAL PROCEDURE, OR ANY OTHER EXPOSURE?NO LATEX RISK : HAVE YOU EVER HAD ANY DIFFICULTY BREATHING OR HIVES AFTER EATING OR HANDLING ANY FRUITS, OR VEGETABLES; SUCH KIWI, BANANAS, STONE FRUITS, OR CHESTNUTSNO LATEX RISK : DO YOU HAVE A PREVIOUS PERSONAL HISTORY OF MORE THAN NINE SURGERIES, SPINA BIFIDA, OR REPEATED CATHERIZATIONS? NO LATEX RISK : ARE YOU FREQUENTLY EXPOSED TO LATEX PRODUCTS IN YOUR OCCUPATION?NO DATE ASKED : 12/12/2018 CAFFEINE CAFFEINE USE?YES HOW OFTEN AND HOW MUCH? DAILY COFFEE ADVANCE DIRECTIVE ADVANCE DIRECTIVE DISCUSSED WITH PATIENT:YES HCP PARVEZ NERI, VOODOO [id number] NONE NO ORTHODOX BELIEFS THAT WOULD IMPACT HEALTH CARE. MARITAL STATUS: . FEMALE 6 MONTH RISK ASSESSMENT FOR STD SPOUSE. 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 REVIEWED 11/07/17 1130 LASREVIEWED WITH PATIENT 09/18/18 1314 JSREVIEWED WITH PT. 12/12/18 VDREVIEWED WITH PATIENT 03/26/19 1516 JS. HOSPITALIZATION/MAJOR DIAGNOSTIC PROCEDURE SURGERIES REVIEW OF SYSTEMS REVIEWED BY: PROVIDER: MELLISSA YOUNG . CONSTITUTIONAL: ANY CHANGE IN YOUR MEDICAL CONDITION? NO . CHILLS NO . FEVER NO . INFECTION: DO YOU HAVE NEW INFECTIONS? NO . DO YOU HAVE HISTORY OF MRSA? NO . MUSCULOSKELETAL: ANY NEW PATTERNS OF PAIN OR NUMBNESS? NO . GASTROENTEROLOGY: ANY NEW CHANGE IN BOWEL CONTROL? NO . GENITOURINARY: ANY NEW CHANGE IN BLADDER CONTROL? NO . IS THERE A CHANCE YOU COULD BE ? NO . HEMATOLOGY/LYMPH: DO YOU TAKE ANY BLOOD THINNERS? (FOR EXAMPLE- COUMADIN, PLAVIX, AGGRENOX, PLATEL, PRADAXA, OR XARELTO) NO . WHEN WAS YOUR LAST DOSE? DATE: TIME: . NEUROLOGY: HAVE YOU FALLEN IN THE PAST 12 MONTHS? NO . ANY NEW EXTREMITY NUMBNESS OR WEAKNESS? NO . CARDIOLOGY: DO YOU HAVE A PACEMAKER OR DEFIBRILLATOR? NO . RESPIRATORY: HAVE YOU BEEN SICK IN THE PAST WEEK? NO . FEVER NO . FLU LIKE SYMPTOMS? NO . COUGH NO . INTEGUMENTARY: DO YOU HAVE ANY RASHES OR OPEN SORES? NO . ALLERGIC/IMMUNO: ARE YOU ALLERGIC TO IV DYE? NO . ANY NEW ALLERGIES? NO . PSYCHIATRIC: DO YOU HAVE THOUGHTS OF HURTING YOURSELF OR SOMEONE ELSE? NO . ARE YOU ABUSED, NEGLECTED, OR IN AN UNSAFE ENVIRONMENT? NO . ENDOCRINOLOGY: ARE YOU DIABETIC? NO . OTHER: DO YOU NEED ANY PRESCRIPTIONS? YES . IF YES, PLEASE LIST: ____PERCOCET, NUCYNTA, SOMA, CELEBREX . ANY NEW PROBLEMS WITH YOUR MEDICATIONS? NO . WHEN DID YOU LAST EAT? ____ . WHEN DID YOU LAST DRINK? ____ . WHAT DID YOU LAST DRINK? ____ . NAME OF PERSON DRIVING YOU HOME? ____ . DO YOU HAVE ANY OTHER QUESTIONS OR CONCERNS NO . VITAL SIGNS WT 225.8 LBS, HT 70 IN, BMI 32.40 INDEX, BP 140/79 MM HG, HR 80 /MIN, RR 18 /MIN, TEMP 97.5 F, OXYGEN SAT % 96%, NA INITIALS SC 15:28. EXAMINATION GENERAL EXAMINATION: GENERALNO ACUTE DISTRESS, WELL NOURISHED AND HYDRATED. PSYCHAPPROPRIATE MOOD AND AFFECT . LUNGS:CLEAR TO AUSCULTATION BILATERALLY, NO WHEEZES, RHONCHI, RALES. HEART:NO MURMURS, REGULAR RATE AND RHYTHM. ASSESSMENTS INTERVERTEBRAL DISC DISORDER WITH RADICULOPATHY OF LUMBOSACRAL REGION - M51.17 (PRIMARY) TREATMENT INTERVERTEBRAL DISC DISORDER WITH RADICULOPATHY OF LUMBOSACRAL REGION REFILL PERCOCET TABLET, 5-325 MG, 1 TABLET, ORALLY, EVERY 4 -6 HOURS PRN PAIN MDD=4, 30 DAY(S), 120, REFILLS 0 REFILL SOMA TABLET, 350 MG, 1 TAB, ORALLY, DAILY AT BEDTIME NEEDED FOR SPASMS AND PAIN MDD=1, 30 DAY(S), 12, REFILLS 0 REFILL NUCYNTA ER TABLET EXTENDED RELEASE 12 HOUR, 100 MG, 1 TABLET, ORALLY FOR PAIN, EVERY 24 HRS MDD1, 30 DAY(S), 30, REFILLS 0 CLINICAL NOTES: 58 YEAR OLD MALE IN [facility] [place] CHRONIC PAIN FOLLOW UP. GIVEN PRESENTING SYMPTOMS AND RESULTS OF PHYSICAL EXAMINATION RECOMMENDED FOLLOW UP AFTER UPCOMING FACET BLOCK. HE HAS EXPRESSED UNDERSTAINING OF AND WAS IN AGREEMENT WITH TX PLAN. GIVEN TIME TO ASK QUESTIONS AND EXPRESS CONCERNS. , ISTOP REGISTRY REVIEWED AND DEMONSTRATES COMPLLIANCE. (REF #[id number] ) BRINGS IN MEDICATIONS WHICH IS APPROPRIATE FOR WHAT WAS DISPENSED. RECENT URINE TOXICOLOGY REVIEWED. NO UNAUTHORIZED MEDICATIONS. NO ILLICIT SUBSTANCES AND PRESCRIBED MEDICATIONS WERE PRESENT. PROCEDURES [employer] OPINION IN YOUR OPINION, WAS THE INCIDENT THAT THE PATIENT DESCRIBED THE COMPETENT MEDICAL CAUSE OF THIS INJURY/ILLNESS? YES ARE THE PATIENT'S COMPLAINTS CONSISTENT WITH HIS/HER HISTORY OF THE INJURY/ILLNESS? YES IS THE PATIENT'S HISTORY OF THE INJURY/ILLNESS CONSISTENT WITH YOUR OBJECTIVE FINDING? YES WHAT IS THE PERCENTAGE OF TEMPORARY IMPAIRMENT? MARKED = 75% IS THE PATIENT WORKING? NO DOCTOR ON SITE: ARLEY HANKS MD PROCEDURE CODES FA211 ESTABILISHED PATIENT [facility] CHARGE DISPOSITION & COMMUNICATION FOLLOW UP AFTER FACET BLOCK (REASON: LOW BACK PAIN) ELECTRONICALLY SIGNED BY PAT DC ON 03/27/2019 AT 02:15 PM EST DISCLAIMER : THIS IS A VISIT SUMMARY EXTRACTED FROM THE [employer] CHART. IT IS NOT A COPY OF THE [employer] PROGRESS NOTE. PAPA
== END ==
LOC: M PAIN 15:00
PROVIDERS: ATTEND Family Medicine
DX: M51.17 Intervertebral disc disorders with radiculopathy, lumbosacral region (principal)

== ENCOUNTER → 2019-04-16 | Outpatient (CLI) | payer OTHER ==
[~2019-04-16] MED LIST changes: +BUPIVACAINE HCL 0.25% 30 ML VIAL As Ordered ONE; +ISOVUE-M 300 61% 15ML VIAL (Q9967) As Ordered ONE; +LIDOCAINE 1% SDV INJ 30 ML VIAL As Ordered ONE; +TRIAMCINOLONE ACETONIDE SUSP 40 MG/ML VIAL (J3301) As Ordered ONE; +oxyCODONE 5MG TAB As Ordered ONE
--- NOTE | 2019-04-16 13:00 | REP ---
Partial lumbar spine series: To views . History: Injection procedure for pain. 20 seconds of fluoroscopy time is reported. Findings: A sequence of two fluoroscopically obtained last image hold procedural spot radiographs of the lumbar spine document needle position and contrast injection associated with injection procedure. Electronically Signed by César De Los Santos MD 04/16/2019 12:51 P
--- NOTE | 2019-04-22 04:36 | ECWPNPC ---
PATIENT NAME: BEBE NERI : 1960 GENDER: MALE VISIT DATE: 04/16/2019 DISCHARGE DATE: 04/16/19 1106 VISIT LOCKED DATE TIME: PHYSICIAN: ARLEY PACE MD RESOURCE: ARLEY PACE MD REASON FOR APPOINTMENT 1. LTFB W/C HISTORY OF PRESENT ILLNESS HISTORY OF PRESENT ILLNESS: PAIN THE PATIENT DESCRIBES THE PAIN... FALL RISK SCREENING: SCREENING :NO FALLS REPORTED IN THE LAST YEAR CURRENT MEDICATIONS TAKING CELEBREX 200 MG CAPSULE 1 CAPSULE ORALLY ONCE A DAY NEEDED FOR PAIN, NOTES: 04-12-19 0800 TAKING PERCOCET 5-325 MG TABLET 1 TABLET ORALLY EVERY 4 -6 HOURS PRN PAIN MDD=4, NOTES: 04-16-19 0330 TAKING SOMA 350 MG TABLET 1 TAB ORALLY DAILY AT BEDTIME NEEDED EVERY 2-3 NIGHTS FOR SPASMS AND PAIN MDD=1, NOTES: 04-13-19-2199 TAKING NUCYNTA ER 100 MG TABLET EXTENDED RELEASE 12 HOUR 1 TABLET ORALLY FOR PAIN EVERY 24 HRS MDD1, NOTES: 04-15-19 190 MEDICATION LIST REVIEWED AND RECONCILED WITH THE PATIENT PAST MEDICAL HISTORY GERD CHRONIC BACK PAIN ALLERGIES N.K.D.A. SURGICAL HISTORY LOW BACK SURGURY 1997 L3, L4, L5 BACK SURGURY 2000 L4-L5 SURGERY 2011 FAMILY HISTORY FATHER: ALIVE 82 YRS MOTHER: 71 YRS, DIAGNOSED WITH OTHER SPECIFIED CONDITIONS INFLUENCING HEALTH STATUS SIBLINGS: ALIVE, BROTHER WITH BLADDER CANCER, [place], UNSPECIFIED HEART DISEASE, OTHER MALIGNANT NEOPLASM OF UNSPECIFIED SITE 4 BROTHER(S) , 2 SISTER(S) - HEALTHY. MOTHER FROM MS. SOCIAL HISTORY GENERAL: TOBACCO USE ARE YOU A:FORMER SMOKER OTHERS AT HOME: SPOUSE. 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 LANGUAGE LANGUAGES SPOKEN:TURKMEN RECREATIONAL DRUG USE DRUG USE?NO EXERCISE: NO REGULAR EXERCISE. LEARNING BARRIERS / SPECIAL NEEDS BARRIERS TO LEARNING?NO HEARING IMPAIRED?NO VISION IMPAIRED?YES :CORRECTIVE LENSES COGNITIVELY IMPAIRED?NO READINESS TO LEARN?YES LEARNING PREFERENCES?NO LEARNING CAPABILITIES PRESENT?YES EMOTIONAL BARRIERS?NO PAIN CLINIC PFS, CLERGY, PUBLIC HEALTH REFERRALS HAS THE PATIENT BEEN EDUCATED REGARDING HIS/HER PLAN OF CARE?YES HAS THE PATIENT BEEN EDUCATED REGARDING PAIN, THE RISK FOR PAIN, THE IMPORTANCE OF EFFECTIVE PAIN MANAGEMENT, AND THE PAIN ASSESSMENT PROCESS?YES LATEX QUESTIONNAIRE LATEX ALLERGY : HAVE YOU EVER DEVELOPED ANY TYPE OF REACTION AFTER HANDLING LATEX PRODUCTS SUCH RUBBER GLOVES, CONDOMS, DIAPHRAGMS, BALLOONS, SOCKS, OR UNDERWEAR?NO LATEX ALLERGY : HAVE YOU EVER DEVELOPED ANY TYPE OF REACTION DURING OR AFTER DENTAL APPOINTMENT, VAGINAL/RECTAL EXAMINATION, SURGICAL PROCEDURE, OR ANY OTHER EXPOSURE?NO LATEX RISK : HAVE YOU EVER HAD ANY DIFFICULTY BREATHING OR HIVES AFTER EATING OR HANDLING ANY FRUITS, OR VEGETABLES; SUCH KIWI, BANANAS, STONE FRUITS, OR CHESTNUTSNO LATEX RISK : DO YOU HAVE A PREVIOUS PERSONAL HISTORY OF MORE THAN NINE SURGERIES, SPINA BIFIDA, OR REPEATED CATHERIZATIONS? NO LATEX RISK : ARE YOU FREQUENTLY EXPOSED TO LATEX PRODUCTS IN YOUR OCCUPATION?NO DATE ASKED : 04/08/2019 CAFFEINE CAFFEINE USE?YES HOW OFTEN AND HOW MUCH? DAILY COFFEE ADVANCE DIRECTIVE ADVANCE DIRECTIVE DISCUSSED WITH PATIENT:YES HCP PARVEZ NERI, RESTORATIONISM [id number] NONE NO GNOSTICIST BELIEFS THAT WOULD IMPACT HEALTH CARE. MARITAL STATUS: . FEMALE 6 MONTH RISK ASSESSMENT FOR STD SPOUSE. 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 REVIEWED 11/07/17 1130 LASREVIEWED WITH PATIENT 09/18/18 1314 JSREVIEWED WITH PT. 12/12/18 VDREVIEWED WITH PATIENT 03/26/19 1516 JSPRE SCREENING DS 04-08-19. HOSPITALIZATION/MAJOR DIAGNOSTIC PROCEDURE SURGERIES REVIEW OF SYSTEMS REVIEWED BY: PROVIDER: . CONSTITUTIONAL: ANY CHANGE IN YOUR MEDICAL CONDITION? NO . CHILLS NO . FEVER NO . INFECTION: DO YOU HAVE NEW INFECTIONS? NO . DO YOU HAVE HISTORY OF MRSA? NO . MUSCULOSKELETAL: ANY NEW PATTERNS OF PAIN OR NUMBNESS? NO . GASTROENTEROLOGY: ANY NEW CHANGE IN BOWEL CONTROL? NO . GENITOURINARY: ANY NEW CHANGE IN BLADDER CONTROL? NO . IS THERE A CHANCE YOU COULD BE ? NO . HEMATOLOGY/LYMPH: DO YOU TAKE ANY BLOOD THINNERS? (FOR EXAMPLE- COUMADIN, PLAVIX, AGGRENOX, PLATEL, PRADAXA, OR XARELTO) NO . WHEN WAS YOUR LAST DOSE? DATE: TIME: . NEUROLOGY: HAVE YOU FALLEN IN THE PAST 12 MONTHS? NO . ANY NEW EXTREMITY NUMBNESS OR WEAKNESS? NO . CARDIOLOGY: DO YOU HAVE A PACEMAKER OR DEFIBRILLATOR? NO . RESPIRATORY: HAVE YOU BEEN SICK IN THE PAST WEEK? NO . FEVER NO . FLU LIKE SYMPTOMS? NO . COUGH NO . INTEGUMENTARY: DO YOU HAVE ANY RASHES OR OPEN SORES? NO . ALLERGIC/IMMUNO: ARE YOU ALLERGIC TO IV DYE? NO . ANY NEW ALLERGIES? NO . PSYCHIATRIC: DO YOU HAVE THOUGHTS OF HURTING YOURSELF OR SOMEONE ELSE? NO . ARE YOU ABUSED, NEGLECTED, OR IN AN UNSAFE ENVIRONMENT? NO . ENDOCRINOLOGY: ARE YOU DIABETIC? NO . OTHER: DO YOU NEED ANY PRESCRIPTIONS? NO . IF YES, PLEASE LIST: ____ . ANY NEW PROBLEMS WITH YOUR MEDICATIONS? NO . WHEN DID YOU LAST EAT? ____07-03-67 1700 . WHEN DID YOU LAST DRINK? ____[id number] 0400 . WHAT DID YOU LAST DRINK? ____WATER . NAME OF PERSON DRIVING YOU HOME? ____PARVEZ SWANK . DO YOU HAVE ANY OTHER QUESTIONS OR CONCERNS NO . VITAL SIGNS WT 225.2 LBS, HT 70 IN, BMI 32.31 INDEX, BP 127/67 MM HG, HR 71 /MIN, RR 18 /MIN, TEMP 97.2 F, OXYGEN SAT % 97%, SAFE IN ENV? (Y/N) YES, NA INITIALS MD 08:58, REVIEWED BY: KG. ASSESSMENTS SPONDYLOSIS WITHOUT MYELOPATHY OR RADICULOPATHY, LUMBAR REGION - M47.816 (PRIMARY) SPONDYLOSIS WITHOUT MYELOPATHY OR RADICULOPATHY, LUMBOSACRAL REGION - M47.817 PROCEDURES PN WORKMANS' COMP OPINION IN YOUR OPINION, WAS THE INCIDENT THAT THE PATIENT DESCRIBED THE COMPETENT MEDICAL CAUSE OF THIS INJURY/ILLNESS? YES ARE THE PATIENT'S COMPLAINTS CONSISTENT WITH HIS/HER HISTORY OF THE INJURY/ILLNESS? YES IS THE PATIENT'S HISTORY OF THE INJURY/ILLNESS CONSISTENT WITH YOUR OBJECTIVE FINDING? YES WHAT IS THE PERCENTAGE OF TEMPORARY IMPAIRMENT? MARKED = 75% IS THE PATIENT WORKING? NO DOCTOR ON SITE: ARLEY HANKS MD PN LUMBAR FACET BLOCK THERAPEUTIC PRE PROCEDURE DIAGNOSIS LUMBAR SPONDYLOSIS, LUMBOSACRAL SPONDYLOSIS POST PROCEDURE DIAGNOSIS LUMBAR SPONDYLOSIS, LUMBOSACRAL SPONDYLOSIS PROCEDURE BILATERAL L4-L5 AND L5-S1 LUMBAR FACET THERAPEUTIC BLOCK SURGEON DR. ARLEY PACE [facility] SOCIAL WORKER NONE ANESTHESIA LOCAL PRE PROCEDURE NOTE THE PATIENT HAS A HISTORY OF CHRONIC LOW BACK PAIN. I EVALUATED THE PATIENT AND REVIEWED THE CHART. I WENT OVER THE RISKS, ALTERNATIVES, AND BENEFITS ASSOCIATED WITH THIS PROCEDURE. THE PATIENT WOULD LIKE TO PROCEED AND GIVES CONSENT TO PERFORM THE PROCEDURE. THE PATIENT DENIES UNEXPLAINABLE WEIGHT LOSS, FEVER, CHILLS, OR NEW CHANGES IN URINARY OR BOWEL CONTROL DESCRIPTION OF PROCEDURE THE PATIENT WAS BROUGHT TO THE PROCEDURE ROOM AND PLACED IN THE PRONE POSITION. THE LUMBOSACRAL AREA WAS CLEANED WITH CHLORAPREP SOLUTION AND DRAPED ASEPTICALLY. THE PROCEDURE WAS DONE UNDER STERILE CONDITIONS. I CHECKED LATERALITY AND THE LEVEL WHERE THE PROCEDURE WAS GOING TO BE PERFORMED WITH THE PATIENT AND THE SUPPORTING STAFF AT THE MOMENT OF THE TIME OUT IN THE PROCEDURE ROOM. UNDER FLUOROSCOPIC GUIDANCE, THE TARGET POINT WAS SELECTED AT THE RIGHT AND LEFT L4-L5 AND RIGHT AND LEFT L5-S1 FACET JOINTS. TARGET POINT WAS SELECTED AFTER LATERAL ROTATION AND TILT OF THE MAGNIFIER OF THE C-ARM. LIDOCAINE 0.5% WAS USED TO NUMB THE SKIN AND THE SUBCUTANEOUS TISSUE BELOW IT. SPINAL NEEDLES, 22-GAUGE, WERE ADVANCED UNDER FLUOROSCOPIC GUIDANCE AND FOLLOWING PATIENT FEEDBACK UNTIL THE TARGETS WERE TOUCHED. THE POSITION OF THE NEEDLES WAS VERIFIED WITH AP AND LATERAL VIEWS. AFTER PROPER POSITION OF THE NEEDLES WAS ACHIEVED, ISOVUE-M DYE 30% 0.1 ML WAS INJECTED SHOWING ADEQUATE SPREAD OF THE DYE. THEN A SOLUTION OF 1.9 ML OF BUPIVACAINE 0.125% OF KENALOG 10 MG WAS INJECTED AT EACH SITE. THERE WAS NO EVIDENCE OF BLOOD, PARESTHESIA OR CEREBROSPINAL FLUID DURING THE PROCEDURE. THE PATIENT WAS SENT TO THE RECOVERY ROOM. THE PATIENT WAS MOVING THE EXTREMITIES AND DOING WELL. THERE WAS NO COMPLICATION DURING THE PROCEDURE. FLUOROSCOPY TIME WAS 20 SECONDS POST PROCEDURE NOTE I AM LOOKING FOR LONG LASTING PAIN RELIEF WITH THIS INTERVENTION. THE PATIENT WILL BE SEEN IN A FOLLOW UP IN THE NEXT FEW WEEKS. INSTRUCTIONS WERE GIVEN, QUESTIONS WERE ANSWERED, AND THE PATIENT EXPRESSED UNDERSTANDING AND AGREES WITH THE PLAN. I, DEZ MARROQUIN, DOCUMENTED THE ABOVE INFORMATION ACTING A SCRIBE FOR DR. PACE. I HAVE REVIEWED THE ABOVE DOCUMENT, WRITTEN BY DEZ CEJAIBLuke AND I VERIFY THAT IT IS ACCURATE. DIAGNOSTIC IMAGING [facility] [place] FACET BLOCK (PAIN)[id number] PROCEDURE CODES 09906 INJ PARAVERT F JNT L/S 1 LEV, MODIFIERS: 50 [id number] INJ PARAVERT F JNT L/S 2 LEV, MODIFIERS: [id number] RADXPS IN END [id number] PXD DISPOSITION & COMMUNICATION FOLLOW UP 3 WEEKS ELECTRONICALLY SIGNED BY ARLEY PACE MD, MD ON 04/21/2019 AT 03:30 PM EST DISCLAIMER : THIS IS A VISIT SUMMARY EXTRACTED FROM THE [employer] CHART. IT IS NOT A COPY OF THE [employer] PROGRESS NOTE. PAPA
== END ==
LOC: M PAIN 09:00
PROVIDERS: ATTEND Anesthesiology
DX: M47.816 Spondylosis without myelopathy or radiculopathy, lumbar region (principal); M47.817 Spondylosis without myelopathy or radiculopathy, lumbosacral region; Z87.891 Personal history of nicotine dependence; Z79.891 Long term (current) use of opiate analgesic; Z79.899 Other long term (current) drug therapy
CPT/HCPCS: 64493; 64494; J3301; Q9967

== ENCOUNTER → 2019-07-31 | Outpatient (CLI) | payer OTHER ==
[~2019-07-31] MED LIST changes: -BUPIVACAINE HCL 0.25% 30 ML VIAL As Ordered ONE; -ISOVUE-M 300 61% 15ML VIAL (Q9967) As Ordered ONE; -LIDOCAINE 1% SDV INJ 30 ML VIAL As Ordered ONE; -TRIAMCINOLONE ACETONIDE SUSP 40 MG/ML VIAL (J3301) As Ordered ONE; -oxyCODONE 5MG TAB As Ordered ONE
--- NOTE | 2019-08-04 03:33 | ECWPNPC ---
PATIENT NAME: BEBE NERI : 1960 GENDER: MALE VISIT DATE: 07/31/2019 DISCHARGE DATE: 07/31/19 1217 VISIT LOCKED DATE TIME: PHYSICIAN: ADAM JAMESON RESOURCE: ADAM JAMESON REASON FOR APPOINTMENT 1. W/C POST PROCEDURE HISTORY OF PRESENT ILLNESS HISTORY OF PRESENT ILLNESS: PAIN THE PATIENT DESCRIBES THE PAINAFTER THE PROCEDURE SEVERITY - PAIN SCORE OF6/10 LOCATIONSLOWER BACK LEFT QUALITYACHING , SHARP, STABBING DURATIONCONTINUOUS, CONSTANT, ALL DAY PAIN IS INCREASED BY:ACTIVITIES, PROLONGED STANDING 58-YEAR-OLD MALE IN FOR POST PROCEDURAL FOLLOW-UP. HE RATES HIS PAIN CURRENTLY AT A 6 OUT OF 10 AND DESCRIBES IT ACHING, SHARP, AND STABBING. PATIENT REPORTS 50% PAIN RELIEF FOR FOR APPROXIMATELY 3 MONTHS. 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 THE PATIENT STATES HE IS EXPERIENCING LOW BACK PAIN, WITH MORE PAIN ON THE RIGHT SIDE. THE PATIENT SAYS HE HAS HAD MULTIPLE BACK SURGERIES, YET THE PAIN STILL PERSISTS. FALL RISK SCREENING: SCREENING :NO FALLS REPORTED IN THE LAST YEAR CURRENT MEDICATIONS TAKING PERCOCET 5-325 MG TABLET 1 TABLET ORALLY EVERY 4 -6 HOURS PRN PAIN MDD=4, NOTES: 04-16-19 0330 TAKING SOMA 350 MG TABLET 1 TAB ORALLY DAILY AT BEDTIME NEEDED EVERY 2-3 NIGHTS FOR SPASMS AND PAIN MDD=1, NOTES: 04-13-19 TAKING NUCYNTA ER 100 MG TABLET EXTENDED RELEASE 12 HOUR 1 TABLET ORALLY FOR PAIN EVERY 24 HRS MDD1, NOTES: 04-15-19 190 TAKING CELEBREX 200 MG CAPSULE 1 CAPSULE ORALLY ONCE A DAY NEEDED FOR PAIN, NOTES: 04-12-19 08 MEDICATION LIST REVIEWED AND RECONCILED WITH THE PATIENT PAST MEDICAL HISTORY GERD CHRONIC BACK PAIN ALLERGIES N.K.D.A. SURGICAL HISTORY LOW BACK SURGURY 1997 L3, L4, L5 BACK SURGURY 2000 L4-L5 SURGERY 2011 FAMILY HISTORY FATHER: ALIVE 82 YRS MOTHER: 71 YRS, DIAGNOSED WITH OTHER SPECIFIED CONDITIONS INFLUENCING HEALTH STATUS SIBLINGS: ALIVE, BROTHER WITH BLADDER CANCER, [place], UNSPECIFIED HEART DISEASE, OTHER MALIGNANT NEOPLASM OF UNSPECIFIED SITE 4 BROTHER(S) , 2 SISTER(S) - HEALTHY. MOTHER FROM MS. SOCIAL HISTORY GENERAL: TOBACCO USE ARE YOU A:FORMER SMOKER OTHERS AT HOME: SPOUSE. 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 LANGUAGE LANGUAGES SPOKEN:MALAYSIAN RECREATIONAL DRUG USE DRUG USE?NO EXERCISE: NO REGULAR EXERCISE. LEARNING BARRIERS / SPECIAL NEEDS BARRIERS TO LEARNING?NO HEARING IMPAIRED?NO VISION IMPAIRED?YES COGNITIVELY IMPAIRED?NO :CORRECTIVE LENSES READINESS TO LEARN?YES LEARNING PREFERENCES?NO LEARNING CAPABILITIES PRESENT?YES EMOTIONAL BARRIERS?NO PAIN CLINIC PFS, CLERGY, PUBLIC HEALTH REFERRALS PFS REFERRAL NEEDED?NO CLERGY REFERRAL NEEDED?NO PUBLIC HEALTH REFERRAL NEEDED?NO WAS THE PROVIDER NOTIFIED OF ANY PERTINENT INFO?YES HAS THE PATIENT BEEN EDUCATED REGARDING HIS/HER PLAN OF CARE?YES HAS THE PATIENT BEEN EDUCATED REGARDING PAIN, THE RISK FOR PAIN, THE IMPORTANCE OF EFFECTIVE PAIN MANAGEMENT, AND THE PAIN ASSESSMENT PROCESS?YES LATEX QUESTIONNAIRE LATEX ALLERGY : HAVE YOU EVER DEVELOPED ANY TYPE OF REACTION AFTER HANDLING LATEX PRODUCTS SUCH RUBBER GLOVES, CONDOMS, DIAPHRAGMS, BALLOONS, SOCKS, OR UNDERWEAR?NO LATEX ALLERGY : HAVE YOU EVER DEVELOPED ANY TYPE OF REACTION DURING OR AFTER DENTAL APPOINTMENT, VAGINAL/RECTAL EXAMINATION, SURGICAL PROCEDURE, OR ANY OTHER EXPOSURE?NO DATE ASKED : 04/08/2019 LATEX RISK : HAVE YOU EVER HAD ANY DIFFICULTY BREATHING OR HIVES AFTER EATING OR HANDLING ANY FRUITS, OR VEGETABLES; SUCH KIWI, BANANAS, STONE FRUITS, OR CHESTNUTSNO LATEX RISK : DO YOU HAVE A PREVIOUS PERSONAL HISTORY OF MORE THAN NINE SURGERIES, SPINA BIFIDA, OR REPEATED CATHERIZATIONS? NO LATEX RISK : ARE YOU FREQUENTLY EXPOSED TO LATEX PRODUCTS IN YOUR OCCUPATION?NO CAFFEINE CAFFEINE USE?YES HOW OFTEN AND HOW MUCH? DAILY COFFEE ADVANCE DIRECTIVE ADVANCE DIRECTIVE DISCUSSED WITH PATIENT:YES HCP PARVEZ NERI, CONGREGATION [id number] NONE NO YARSANI BELIEFS THAT WOULD IMPACT HEALTH CARE. MARITAL STATUS: . FEMALE 6 MONTH RISK ASSESSMENT FOR STD SPOUSE. 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 HOSPITALIZATION/MAJOR DIAGNOSTIC PROCEDURE SURGERIES REVIEW OF SYSTEMS REVIEWED BY: PROVIDER: MELLISSA YOUNG . CONSTITUTIONAL: ANY CHANGE IN YOUR MEDICAL CONDITION? NO . CHILLS NO . FEVER NO . INFECTION: DO YOU HAVE NEW INFECTIONS? NO . DO YOU HAVE HISTORY OF MRSA? NO . MUSCULOSKELETAL: ANY NEW PATTERNS OF PAIN OR NUMBNESS? NO . GASTROENTEROLOGY: ANY NEW CHANGE IN BOWEL CONTROL? NO . GENITOURINARY: ANY NEW CHANGE IN BLADDER CONTROL? NO . IS THERE A CHANCE YOU COULD BE ? NO . HEMATOLOGY/LYMPH: DO YOU TAKE ANY BLOOD THINNERS? (FOR EXAMPLE- COUMADIN, PLAVIX, AGGRENOX, PLATEL, PRADAXA, OR XARELTO) NO . WHEN WAS YOUR LAST DOSE? DATE: TIME: . NEUROLOGY: HAVE YOU FALLEN IN THE PAST 12 MONTHS? NO . ANY NEW EXTREMITY NUMBNESS OR WEAKNESS? NO . CARDIOLOGY: DO YOU HAVE A PACEMAKER OR DEFIBRILLATOR? NO . RESPIRATORY: HAVE YOU BEEN SICK IN THE PAST WEEK? NO . FEVER NO . FLU LIKE SYMPTOMS? NO . COUGH NO . INTEGUMENTARY: DO YOU HAVE ANY RASHES OR OPEN SORES? NO . ALLERGIC/IMMUNO: ARE YOU ALLERGIC TO IV DYE? NO . ANY NEW ALLERGIES? NO . PSYCHIATRIC: DO YOU HAVE THOUGHTS OF HURTING YOURSELF OR SOMEONE ELSE? NO . ARE YOU ABUSED, NEGLECTED, OR IN AN UNSAFE ENVIRONMENT? NO . ENDOCRINOLOGY: ARE YOU DIABETIC? NO . OTHER: DO YOU NEED ANY PRESCRIPTIONS? NO . IF YES, PLEASE LIST: ____ . ANY NEW PROBLEMS WITH YOUR MEDICATIONS? NO . WHEN DID YOU LAST EAT? ____ . WHEN DID YOU LAST DRINK? ____ . WHAT DID YOU LAST DRINK? ____ . NAME OF PERSON DRIVING YOU HOME? ____ . DO YOU HAVE ANY OTHER QUESTIONS OR CONCERNS NO . VITAL SIGNS WT 222.2 LBS, HT 70 IN, BMI 31.88 INDEX, BP 128/75 MM HG, HR 72 /MIN, RR 18 /MIN, TEMP 96.9 F, OXYGEN SAT % 97%, NA INITIALS AW 1142. EXAMINATION GENERAL EXAMINATION: GENERALNO ACUTE DISTRESS, WELL NOURISHED AND HYDRATED. PSYCHAPPROPRIATE MOOD AND AFFECT . LUNGS:CLEAR TO AUSCULTATION BILATERALLY, NO WHEEZES, RHONCHI, RALES. HEART:NO MURMURS, REGULAR RATE AND RHYTHM. ASSESSMENTS INTERVERTEBRAL DISC DISORDER WITH RADICULOPATHY OF LUMBOSACRAL REGION - M51.17 (PRIMARY) TREATMENT INTERVERTEBRAL DISC DISORDER WITH RADICULOPATHY OF LUMBOSACRAL REGION CLINICAL NOTES: 58-YEAR-OLD MALE IN FOR WORKER'S COMP. POST FACET BLOCK FOLLOW UP. GIVEN PRESENTING SYMPTOMS AND RESULTS OF PHYSICAL EXAMINATION RECOMMEND FOLLOW-UP IN 2 MONTHS. PATIENT HAS EXPRESSED UNDERSTANDING OF AND WAS IN AGREEMENT WITH TREATMENT PLAN. GIVEN TIME TO ASK QUESTIONS AND EXPRESS CONCERNS., ISTOP REGISTRY REVIEWED AND DEMONSTRATES COMPLLIANCE. (REF # [id number] ) BRINGS IN MEDICATIONS WHICH IS APPROPRIATE FOR WHAT WAS DISPENSED. RECENT URINE TOXICOLOGY REVIEWED. NO UNAUTHORIZED MEDICATIONS. NO ILLICIT SUBSTANCES AND PRESCRIBED MEDICATIONS WERE PRESENT. PROCEDURES PN WORKMANS' COMP OPINION IN YOUR OPINION, WAS THE INCIDENT THAT THE PATIENT DESCRIBED THE COMPETENT MEDICAL CAUSE OF THIS INJURY/ILLNESS? YES ARE THE PATIENT'S COMPLAINTS CONSISTENT WITH HIS/HER HISTORY OF THE INJURY/ILLNESS? YES IS THE PATIENT'S HISTORY OF THE INJURY/ILLNESS CONSISTENT WITH YOUR OBJECTIVE FINDING? YES WHAT IS THE PERCENTAGE OF TEMPORARY IMPAIRMENT? MARKED = 75% IS THE PATIENT WORKING? NO DOCTOR ON SITE: ARLEY HANKS MD PROCEDURE CODES FA211 ESTABILISHED PATIENT [facility] FACILITY CHARGE DISPOSITION & COMMUNICATION FOLLOW UP 2 MONTHS (REASON: BACK PAIN) ELECTRONICALLY SIGNED BY PAT DC ON 08/03/2019 AT 08:54 AM EDT DISCLAIMER : THIS IS A VISIT SUMMARY EXTRACTED FROM THE [employer] CHART. IT IS NOT A COPY OF THE [employer] PROGRESS NOTE. PAPA
== END ==
LOC: M PAIN 11:45
PROVIDERS: ATTEND Family Medicine
DX: M51.17 Intervertebral disc disorders with radiculopathy, lumbosacral region (principal); Z79.891 Long term (current) use of opiate analgesic; Z79.899 Other long term (current) drug therapy; Z87.891 Personal history of nicotine dependence

== ENCOUNTER 2019-11-21 12:41 | Emergency (ER) | payer OTHER, SELFPAY ==
[~2019-11-21] VITALS: Ht 177.8 cm; Wt 98.8 kg
[2019-11-21] MEDS ORDERED: KETOROLAC 60MG 2ML VIAL IM ONE (15:00)
[2019-11-21] MEDS ORDERED: OXYCODONE/APAP 5MG/325MG(BULK FOR ED) 1 TABLET PO ONE (16:45)
[2019-11-21 17:10] VITALS: BP 129/76
--- NOTE | 2019-11-22 07:40 | REP ---
REASON: Trauma with pain and swelling. The olecranon process has been avulsed from its origin and is seen superiorly situated within the soft tissues. This could indicate a concomitant triceps tendon tear. There is soft tissue swelling. IMPRESSION: Fracture and potential related findings, as described above. Electronically Signed by Ted Lozano DO 11/22/2019 08:00 A
--- NOTE | 2019-11-22 07:44 | REP ---
REASON: Trauma. There is an avulsion fracture of the olecranon process, which is retracted superiorly approximately 2.8 cm from its origin. This could be in association with a triceps tendon tear. This would need to be correlated clinically. There is soft tissue swelling. IMPRESSION: Olecranon process avulsion fracture. Electronically Signed by Ted Lozano DO 11/22/2019 08:00 A
== END 2019-11-21 17:11 | disposition home or self-care (01) ==
LOC: M ED 12:41
DX: S52.021A Displaced fracture of olecranon process without intraarticular extension of right ulna, initial encounter for closed fracture (principal); W01.0XXA Fall on same level from slipping, tripping and stumbling without subsequent striking against object, initial encounter; Z79.899 Other long term (current) drug therapy; Z88.8 Allergy status to other drugs, medicaments and biological substances; Y92.9 Unspecified place or not applicable; Y93.9 Activity, unspecified; Y99.9 Unspecified external cause status
CPT/HCPCS: 73060; 73080; 96372; 99284; J1885; U0002

== ENCOUNTER → 2019-11-25 | Outpatient (CLI) | payer OTHER, SELFPAY | LOC: M LABSMTC 11:49 | PROVIDERS: ATTEND Orthopaedic Surgery | DX: Z20.828 Contact with and (suspected) exposure to other viral communicable diseases (principal) ==

== ENCOUNTER → 2019-12-03 | Outpatient (CLI) | payer SELFPAY | LOC: M PAIN 09:00 | PROVIDERS: ATTEND Family Medicine | DX: M51.17 Intervertebral disc disorders with radiculopathy, lumbosacral region (principal) ==

== ENCOUNTER → 2020-02-05 | Outpatient (CLI) | payer OTHER ==
--- NOTE | 2020-02-08 10:38 | ECWPNPC ---
PATIENT NAME: BEBE NERI BUCKY : 1960 GENDER: MALE VISIT DATE: 02/05/2020 DISCHARGE DATE: 02/05/20 1513 VISIT LOCKED DATE TIME: PHYSICIAN: ADAM JAMESON RESOURCE: ADAM JAMESON REASON FOR APPOINTMENT 1. LOW BACK/LEFT LEG HISTORY OF PRESENT ILLNESS DEPRESSION SCREENING: PHQ-2 (2015 EDITION) LITTLE INTEREST OR PLEASURE IN DOING THINGS?NOT AT ALL FEELING DOWN, DEPRESSED, OR HOPELESS?NOT AT ALL TOTAL SCORE0 59-YEAR-OLD MALE IN FOR CHRONIC PAIN FOLLOW-UP. HE RATES HIS PAIN CURRENTLY AT AN 8 OUT OF 10 AND DESCRIBES IT ACHING, BURNING, STABBING, AND SHOOTING. HE FEELS MEDICATIONS ARE HELPFUL AND DENIES MED SIDE EFFECTS AT THIS TIME. 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 THE PATIENT STATES HE IS EXPERIENCING LOW BACK PAIN, WITH MORE PAIN ON THE RIGHT SIDE. THE PATIENT SAYS HE HAS HAD MULTIPLE BACK SURGERIES, YET THE PAIN STILL PERSISTS. GENERAL: -. FALL RISK SCREENING: SCREENING :ONE FALL WITH INJURY IN THE PAST YEAR FELL AND TRIPPED NOVEMBER 2019, BROKE RIGHT ARM/ELBOW. PT SAUGHT MEDICAL TREATMENT. PAIN SCREENING: PATIENT HAS A COMPLAINT OF ACUTE OR CHRONIC PAIN :YES LOCATION OF PAIN:LOW BACK, LEG(S) LEFT LEG INTENSITY OF PAIN (SCALE OF 1 TO 10):8 WHAT DOES YOUR PAIN FEEL LIKE:ACHING, BURNING, STABBING, SHOOTING DURATION:CONTINOUS, CONSTANT, ALL DAY, AWAKENS FROM SLEEP PAIN IS INCREASED BY:OTHERS SITTING FOR LONG PERIODS OF TIME INCREASES PAIN. PAIN IS DECREASED BY:OTHERS MOVING AROUND AND INJECTIONS HELP TO REDUCE PAIN. NURSING NOTE: -. PAIN CENTER INTAKE QUESTIONS: DO YOU HAVE A HISTORY OF MRSA? :NO DO YOU TAKE A BLOOD THINNERS? :NO DO YOU HAVE ANY BLEEDING DISORDERS? :NO ANY NEW NUMBNESS OR WEAKNESS IN YOUR LEGS OR ARMS? :NO ANY PACEMAKER,DEFIBRILLATOR, OR DORSAL COLUMN STIMULATOR? :NO DO YOU HAVE ANY RASHES OR OPEN SORES? :NO ARE YOU ALLERGIC TO IV DYE? :NO ARE YOU DIABETIC? :NO ANY NEW PROBLEMS WITH YOUR MEDICATIONS? :NO HAVE YOU RECEIVED A VACCINE IN THE PAST 30 DAYS? :NO DO YOU PLAN TO RECEIVE A VACCINE IN THE NEXT 21 DAYS? :NO DO YOU NEED ANY PRESCRIPTION? :NO DO YOU TAKE ANY IMMUNOSUPPRESSIVE MEDICATIONS? :YES PERCOCET, SOMA, NUCYNTA IS THERE A CHANCE YOU COULD BE ? :NO ARE YOU BREAST FEEDING? :NO CURRENT MEDICATIONS TAKING PERCOCET 5-325 MG TABLET 1 TABLET ORALLY EVERY 4 -6 HOURS PRN PAIN MDD=4, NOTES: 04-16-19 0330 TAKING SOMA 350 MG TABLET 1 TAB ORALLY DAILY AT BEDTIME NEEDED EVERY 2-3 NIGHTS FOR SPASMS AND PAIN MDD=1, NOTES: 04-13-19 TAKING NUCYNTA ER 100 MG TABLET EXTENDED RELEASE 12 HOUR 1 TABLET ORALLY FOR PAIN EVERY 24 HRS MDD1, NOTES: 04-15-19 190 NOT-TAKING CELEBREX 200 MG CAPSULE 1 CAPSULE ORALLY ONCE A DAY NEEDED FOR PAIN, NOTES: 04-12-19 0800 MEDICATION LIST REVIEWED AND RECONCILED WITH THE PATIENT PAST MEDICAL HISTORY GERD CHRONIC BACK PAIN ALLERGIES N.K.D.A. SURGICAL HISTORY LOW BACK SURGURY 1997 L3, L4, L5 BACK SURGURY 2000 L4-L5 SURGERY 2012 FAMILY HISTORY FATHER: ALIVE 82 YRS MOTHER: 71 YRS, DIAGNOSED WITH OTHER SPECIFIED CONDITIONS INFLUENCING HEALTH STATUS SIBLINGS: ALIVE, BROTHER WITH BLADDER CANCER, [place], OTHER MALIGNANT NEOPLASM OF UNSPECIFIED SITE, UNSPECIFIED HEART DISEASE 4 BROTHER(S) , 2 SISTER(S) - HEALTHY. MOTHER FROM MS. SOCIAL HISTORY GENERAL: TOBACCO USE ARE YOU A:FORMER SMOKER LATEX QUESTIONNAIRE LATEX ALLERGY : HAVE YOU EVER DEVELOPED ANY TYPE OF REACTION AFTER HANDLING LATEX PRODUCTS SUCH RUBBER GLOVES, CONDOMS, DIAPHRAGMS, BALLOONS, SOCKS, OR UNDERWEAR?NO LATEX ALLERGY : HAVE YOU EVER DEVELOPED ANY TYPE OF REACTION DURING OR AFTER DENTAL APPOINTMENT, VAGINAL/RECTAL EXAMINATION, SURGICAL PROCEDURE, OR ANY OTHER EXPOSURE?NO LATEX RISK : HAVE YOU EVER HAD ANY DIFFICULTY BREATHING OR HIVES AFTER EATING OR HANDLING ANY FRUITS, OR VEGETABLES; SUCH KIWI, BANANAS, STONE FRUITS, OR CHESTNUTSNO LATEX RISK : DO YOU HAVE A PREVIOUS PERSONAL HISTORY OF MORE THAN NINE SURGERIES, SPINA BIFIDA, OR REPEATED CATHERIZATIONS? NO LATEX RISK : ARE YOU FREQUENTLY EXPOSED TO LATEX PRODUCTS IN YOUR OCCUPATION?NO DATE ASKED : 02/05/2020 ALCOHOL SCREENING DID YOU HAVE A DRINK CONTAINING ALCOHOL IN THE PAST YEAR?NO POINTS0 INTERPRETATIONNEGATIVE RECREATIONAL DRUG USE DRUG USE?NO CAFFEINE CAFFEINE USE?YES HOW OFTEN AND HOW MUCH? DAILY COFFEE ADVENT [id number] NONE NO SCIENTOLOGY BELIEFS THAT WOULD IMPACT HEALTH CARE. 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 EXERCISE: NO REGULAR EXERCISE. MARITAL STATUS: . OTHERS AT HOME: SPOUSE. FEMALE 6 MONTH RISK ASSESSMENT FOR STD SPOUSE. PAIN CLINIC PFS, CLERGY, PUBLIC HEALTH REFERRALS PFS REFERRAL NEEDED?NO CLERGY REFERRAL NEEDED?NO PUBLIC HEALTH REFERRAL NEEDED?NO WAS THE PROVIDER NOTIFIED OF ANY PERTINENT INFO?YES HAS THE PATIENT BEEN EDUCATED REGARDING HIS/HER PLAN OF CARE?YES HAS THE PATIENT BEEN EDUCATED REGARDING PAIN, THE RISK FOR PAIN, THE IMPORTANCE OF EFFECTIVE PAIN MANAGEMENT, AND THE PAIN ASSESSMENT PROCESS?YES ADVANCE DIRECTIVE ADVANCE DIRECTIVE DISCUSSED WITH PATIENT:YES HCP PARVEZ NERI, HOSPITALIZATION/MAJOR DIAGNOSTIC PROCEDURE SURGERIES REVIEW OF SYSTEMS CONSTITUTIONAL: ANY RECENT FEVER NO . CHILLS NO . WEIGHT CHANGE OF UNKNOWN REASONS NO . GASTROENTEROLOGY: NEW UNEXPLAINABLE CHANGES IN BOWEL CONTROL NO . CONSTIPATION NO . GENITOURINARY: ANY NEW CHANGE IN BLADDER CONTROL? NO . NEUROLOGY: NEW ONSET DIZZINESS OR NEUROLOGICAL CHANGES NOT MENTIONED NO . NEW NUMBNESS OR PAIN PATTERNS NOT MENTIONED AND PERTINENT TO TODAY'S VISIT NO . CARDIOLOGY: NEW CHEST PRESSURE NO . NEW CHEST PAIN NO . RESPIRATORY: UNEXPLAINABLE COUGH NO . NEW SHORTNESS OF BREATH NO . VITAL SIGNS WT 222 LBS, HT 70 IN, BMI 31.85 INDEX, BP 133/76 MM HG, HR 75 /MIN, RR 16 /MIN, OXYGEN SAT % 97, REVIEWED BY: JULITO GIORDANO [facility]. EXAMINATION GENERAL EXAMINATION: GENERALNO ACUTE DISTRESS, WELL NOURISHED AND HYDRATED. PSYCHAPPROPRIATE MOOD AND AFFECT . LUNGS:CLEAR TO AUSCULTATION BILATERALLY, NO WHEEZES, RHONCHI, RALES. HEART:NO MURMURS, REGULAR RATE AND RHYTHM. BACK:POINT TENDER BILATERAL LUMBAR SPINE, SURROUNDING SKIN SHOWS NO ERYTHEMA, ECCHYMOSIS, INCREASED WARMTH, AND/OR SKIN ERUPTIONS NOTED. . ASSESSMENTS SPONDYLOSIS OF LUMBOSACRAL REGION WITHOUT MYELOPATHY OR RADICULOPATHY - M47.817 (PRIMARY) INTERVERTEBRAL DISC DISORDER WITH RADICULOPATHY OF LUMBOSACRAL REGION - M51.17 TREATMENT SPONDYLOSIS OF LUMBOSACRAL REGION WITHOUT MYELOPATHY OR RADICULOPATHY NOTES: BILATERAL THERAPEUTIC LUMBAR FACET L4-L5 L5-S1. CLINICAL NOTES: 59-YEAR-OLD MALE IN FOR WORKER'S COMP. CHRONIC PAIN FOLLOW-UP. GIVEN PRESENTING SYMPTOMS AND RESULTS OF PHYSICAL EXAMINATION RECOMMEND BILATERAL THERAPEUTIC LUMBAR FACET BLOCK L4-L5 L5-S1 WITH POST PROCEDURAL FOLLOW-UP. PATIENT HAS EXPRESSED UNDERSTANDING OF AND WAS IN AGREEMENT WITH TREATMENT PLAN. GIVEN TIME TO ASK QUESTIONS AND EXPRESS CONCERNS. , ISTOP REGISTRY REVIEWED AND DEMONSTRATES COMPLLIANCE. (REF # [id number] ) BRINGS IN MEDICATIONS WHICH IS APPROPRIATE FOR WHAT WAS DISPENSED. RECENT URINE TOXICOLOGY REVIEWED. NO UNAUTHORIZED MEDICATIONS. NO ILLICIT SUBSTANCES AND PRESCRIBED MEDICATIONS WERE PRESENT. INTERVERTEBRAL DISC DISORDER WITH RADICULOPATHY OF LUMBOSACRAL REGION REFILL PERCOCET TABLET, 5-325 MG, 1 TABLET, ORALLY, EVERY 4 -6 HOURS PRN PAIN MDD=4, 30 DAY(S), 120, REFILLS 0, NOTES: 04-16-19 0330 REFILL NUCYNTA ER TABLET EXTENDED RELEASE 12 HOUR, 100 MG, 1 TABLET, ORALLY FOR PAIN, EVERY 24 HRS MDD1, 30 DAYS, 30, REFILLS 0, NOTES: 04-15-19 1900 OTHERS NOTES: FACET JOINT INJECTION MATERIAL WAS PRINTED. PROCEDURES PN WORKMANS' COMP OPINION IN YOUR OPINION, WAS THE INCIDENT THAT THE PATIENT DESCRIBED THE COMPETENT MEDICAL CAUSE OF THIS INJURY/ILLNESS? YES ARE THE PATIENT'S COMPLAINTS CONSISTENT WITH HIS/HER HISTORY OF THE INJURY/ILLNESS? YES IS THE PATIENT'S HISTORY OF THE INJURY/ILLNESS CONSISTENT WITH YOUR OBJECTIVE FINDING? YES WHAT IS THE PERCENTAGE OF TEMPORARY IMPAIRMENT? MARKED = 75% IS THE PATIENT WORKING? NO DOCTOR ON SITE: ARLEY HANKS MD PREVENTIVE MEDICINE PAIN CLINIC TEACHING: THE PATIENT HAS BEEN EDUCATED REGARDING PAIN, THE RISK FOR PAIN, THE IMPORTANCE OF EFFECTIVE PAIN MANAGEMENT, AND THE PAIN ASSESSMENT PROCESS. : PRE- PROCEDURE INSTRUCTIONSTEACHING ON A BILATERAL THERAPEUTIC LUMBAR FACET BLOCK ON HIS L4-L5, L5-S1 WAS GIVEN TO THE PATIENT. THE PATIENT ACKNOWLEDGES UNDERSTANDING FOR HIS PLAN OF CARE. PT WAS GIVEN A URINE UTOX AND NARCOTIC AGREEMENT. - JULITO GIORDANO [facility] PROCEDURE CODES FA211 ESTABILISHED PATIENT [facility] FACILITY CHARGE DISPOSITION & COMMUNICATION FOLLOW UP POSTPROCEDURE (REASON: BILATERAL THERAPEUTIC LUMBAR FACET L4-L5 L5-S1) ELECTRONICALLY SIGNED BY PAT DC ON 02/08/2020 AT 10:36 AM EDT DISCLAIMER : THIS IS A VISIT SUMMARY EXTRACTED FROM THE [employer] CHART. IT IS NOT A COPY OF THE [employer] PROGRESS NOTE. MTDD
--- NOTE | 2020-02-08 10:39 | ECWPNPC ---
PATIENT NAME: BEBE NERI BUCKY : 1960 GENDER: MALE VISIT DATE: 02/05/2020 DISCHARGE DATE: 02/05/20 1513 VISIT LOCKED DATE TIME: PHYSICIAN: ADAM JAMESON RESOURCE: ADAM JAMESON REASON FOR APPOINTMENT 1. LOW BACK/LEFT LEG HISTORY OF PRESENT ILLNESS DEPRESSION SCREENING: PHQ-2 (2015 EDITION) LITTLE INTEREST OR PLEASURE IN DOING THINGS?NOT AT ALL FEELING DOWN, DEPRESSED, OR HOPELESS?NOT AT ALL TOTAL SCORE0 59-YEAR-OLD MALE IN FOR CHRONIC PAIN FOLLOW-UP. HE RATES HIS PAIN CURRENTLY AT AN 8 OUT OF 10 AND DESCRIBES IT ACHING, BURNING, STABBING, AND SHOOTING. HE FEELS MEDICATIONS ARE HELPFUL AND DENIES MED SIDE EFFECTS AT THIS TIME. 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 THE PATIENT STATES HE IS EXPERIENCING LOW BACK PAIN, WITH MORE PAIN ON THE RIGHT SIDE. THE PATIENT SAYS HE HAS HAD MULTIPLE BACK SURGERIES, YET THE PAIN STILL PERSISTS. GENERAL: -. FALL RISK SCREENING: SCREENING :ONE FALL WITH INJURY IN THE PAST YEAR FELL AND TRIPPED NOVEMBER 2019, BROKE RIGHT ARM/ELBOW. PT SAUGHT MEDICAL TREATMENT. PAIN SCREENING: PATIENT HAS A COMPLAINT OF ACUTE OR CHRONIC PAIN :YES LOCATION OF PAIN:LOW BACK, LEG(S) LEFT LEG INTENSITY OF PAIN (SCALE OF 1 TO 10):8 WHAT DOES YOUR PAIN FEEL LIKE:ACHING, BURNING, STABBING, SHOOTING DURATION:CONTINOUS, CONSTANT, ALL DAY, AWAKENS FROM SLEEP PAIN IS INCREASED BY:OTHERS SITTING FOR LONG PERIODS OF TIME INCREASES PAIN. PAIN IS DECREASED BY:OTHERS MOVING AROUND AND INJECTIONS HELP TO REDUCE PAIN. NURSING NOTE: -. PAIN CENTER INTAKE QUESTIONS: DO YOU HAVE A HISTORY OF MRSA? :NO DO YOU TAKE A BLOOD THINNERS? :NO DO YOU HAVE ANY BLEEDING DISORDERS? :NO ANY NEW NUMBNESS OR WEAKNESS IN YOUR LEGS OR ARMS? :NO ANY PACEMAKER,DEFIBRILLATOR, OR DORSAL COLUMN STIMULATOR? :NO DO YOU HAVE ANY RASHES OR OPEN SORES? :NO ARE YOU ALLERGIC TO IV DYE? :NO ARE YOU DIABETIC? :NO ANY NEW PROBLEMS WITH YOUR MEDICATIONS? :NO HAVE YOU RECEIVED A VACCINE IN THE PAST 30 DAYS? :NO DO YOU PLAN TO RECEIVE A VACCINE IN THE NEXT 21 DAYS? :NO DO YOU NEED ANY PRESCRIPTION? :NO DO YOU TAKE ANY IMMUNOSUPPRESSIVE MEDICATIONS? :YES PERCOCET, SOMA, NUCYNTA IS THERE A CHANCE YOU COULD BE ? :NO ARE YOU BREAST FEEDING? :NO CURRENT MEDICATIONS TAKING PERCOCET 5-325 MG TABLET 1 TABLET ORALLY EVERY 4 -6 HOURS PRN PAIN MDD=4, NOTES: 04-16-19 0330 TAKING SOMA 350 MG TABLET 1 TAB ORALLY DAILY AT BEDTIME NEEDED EVERY 2-3 NIGHTS FOR SPASMS AND PAIN MDD=1, NOTES: 04-13-19 TAKING NUCYNTA ER 100 MG TABLET EXTENDED RELEASE 12 HOUR 1 TABLET ORALLY FOR PAIN EVERY 24 HRS MDD1, NOTES: 04-15-19 190 NOT-TAKING CELEBREX 200 MG CAPSULE 1 CAPSULE ORALLY ONCE A DAY NEEDED FOR PAIN, NOTES: 04-12-19 0800 MEDICATION LIST REVIEWED AND RECONCILED WITH THE PATIENT PAST MEDICAL HISTORY GERD CHRONIC BACK PAIN ALLERGIES N.K.D.A. SURGICAL HISTORY LOW BACK SURGURY 1997 L3, L4, L5 BACK SURGURY 2000 L4-L5 SURGERY 2012 FAMILY HISTORY FATHER: ALIVE 82 YRS MOTHER: 71 YRS, DIAGNOSED WITH OTHER SPECIFIED CONDITIONS INFLUENCING HEALTH STATUS SIBLINGS: ALIVE, BROTHER WITH BLADDER CANCER, NV, OTHER MALIGNANT NEOPLASM OF UNSPECIFIED SITE, UNSPECIFIED HEART DISEASE 4 BROTHER(S) , 2 SISTER(S) - HEALTHY. MOTHER FROM MS. SOCIAL HISTORY GENERAL: TOBACCO USE ARE YOU A:FORMER SMOKER LATEX QUESTIONNAIRE LATEX ALLERGY : HAVE YOU EVER DEVELOPED ANY TYPE OF REACTION AFTER HANDLING LATEX PRODUCTS SUCH RUBBER GLOVES, CONDOMS, DIAPHRAGMS, BALLOONS, SOCKS, OR UNDERWEAR?NO LATEX ALLERGY : HAVE YOU EVER DEVELOPED ANY TYPE OF REACTION DURING OR AFTER DENTAL APPOINTMENT, VAGINAL/RECTAL EXAMINATION, SURGICAL PROCEDURE, OR ANY OTHER EXPOSURE?NO LATEX RISK : HAVE YOU EVER HAD ANY DIFFICULTY BREATHING OR HIVES AFTER EATING OR HANDLING ANY FRUITS, OR VEGETABLES; SUCH KIWI, BANANAS, STONE FRUITS, OR CHESTNUTSNO LATEX RISK : DO YOU HAVE A PREVIOUS PERSONAL HISTORY OF MORE THAN NINE SURGERIES, SPINA BIFIDA, OR REPEATED CATHERIZATIONS? NO LATEX RISK : ARE YOU FREQUENTLY EXPOSED TO LATEX PRODUCTS IN YOUR OCCUPATION?NO DATE ASKED : 02/05/2020 ALCOHOL SCREENING DID YOU HAVE A DRINK CONTAINING ALCOHOL IN THE PAST YEAR?NO POINTS0 INTERPRETATIONNEGATIVE RECREATIONAL DRUG USE DRUG USE?NO CAFFEINE CAFFEINE USE?YES HOW OFTEN AND HOW MUCH? DAILY COFFEE JEW [id number] NONE NO JEW BELIEFS THAT WOULD IMPACT HEALTH CARE. 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 EXERCISE: NO REGULAR EXERCISE. MARITAL STATUS: . OTHERS AT HOME: SPOUSE. FEMALE 6 MONTH RISK ASSESSMENT FOR STD SPOUSE. PAIN CLINIC PFS, CLERGY, PUBLIC HEALTH REFERRALS PFS REFERRAL NEEDED?NO CLERGY REFERRAL NEEDED?NO PUBLIC HEALTH REFERRAL NEEDED?NO WAS THE PROVIDER NOTIFIED OF ANY PERTINENT INFO?YES HAS THE PATIENT BEEN EDUCATED REGARDING HIS/HER PLAN OF CARE?YES HAS THE PATIENT BEEN EDUCATED REGARDING PAIN, THE RISK FOR PAIN, THE IMPORTANCE OF EFFECTIVE PAIN MANAGEMENT, AND THE PAIN ASSESSMENT PROCESS?YES ADVANCE DIRECTIVE ADVANCE DIRECTIVE DISCUSSED WITH PATIENT:YES HCP PARVEZ NERI, HOSPITALIZATION/MAJOR DIAGNOSTIC PROCEDURE SURGERIES REVIEW OF SYSTEMS CONSTITUTIONAL: ANY RECENT FEVER NO . CHILLS NO . WEIGHT CHANGE OF UNKNOWN REASONS NO . GASTROENTEROLOGY: NEW UNEXPLAINABLE CHANGES IN BOWEL CONTROL NO . CONSTIPATION NO . GENITOURINARY: ANY NEW CHANGE IN BLADDER CONTROL? NO . NEUROLOGY: NEW ONSET DIZZINESS OR NEUROLOGICAL CHANGES NOT MENTIONED NO . NEW NUMBNESS OR PAIN PATTERNS NOT MENTIONED AND PERTINENT TO TODAY'S VISIT NO . CARDIOLOGY: NEW CHEST PRESSURE NO . NEW CHEST PAIN NO . RESPIRATORY: UNEXPLAINABLE COUGH NO . NEW SHORTNESS OF BREATH NO . VITAL SIGNS WT 222 LBS, HT 70 IN, BMI 31.85 INDEX, BP 133/76 MM HG, HR 75 /MIN, RR 16 /MIN, OXYGEN SAT % 97, REVIEWED BY: JULITO GIORDANO [facility]. EXAMINATION GENERAL EXAMINATION: GENERALNO ACUTE DISTRESS, WELL NOURISHED AND HYDRATED. PSYCHAPPROPRIATE MOOD AND AFFECT . LUNGS:CLEAR TO AUSCULTATION BILATERALLY, NO WHEEZES, RHONCHI, RALES. HEART:NO MURMURS, REGULAR RATE AND RHYTHM. BACK:POINT TENDER BILATERAL LUMBAR SPINE, SURROUNDING SKIN SHOWS NO ERYTHEMA, ECCHYMOSIS, INCREASED WARMTH, AND/OR SKIN ERUPTIONS NOTED. . ASSESSMENTS SPONDYLOSIS OF LUMBOSACRAL REGION WITHOUT MYELOPATHY OR RADICULOPATHY - M47.817 (PRIMARY) INTERVERTEBRAL DISC DISORDER WITH RADICULOPATHY OF LUMBOSACRAL REGION - M51.17 TREATMENT SPONDYLOSIS OF LUMBOSACRAL REGION WITHOUT MYELOPATHY OR RADICULOPATHY NOTES: BILATERAL THERAPEUTIC LUMBAR FACET L4-L5 L5-S1. CLINICAL NOTES: 59-YEAR-OLD MALE IN FOR WORKER'S COMP. CHRONIC PAIN FOLLOW-UP. GIVEN PRESENTING SYMPTOMS AND RESULTS OF PHYSICAL EXAMINATION RECOMMEND BILATERAL THERAPEUTIC LUMBAR FACET BLOCK L4-L5 L5-S1 WITH POST PROCEDURAL FOLLOW-UP. PATIENT HAS EXPRESSED UNDERSTANDING OF AND WAS IN AGREEMENT WITH TREATMENT PLAN. GIVEN TIME TO ASK QUESTIONS AND EXPRESS CONCERNS. , [employer]STOP REGISTRY REVIEWED AND DEMONSTRATES COMPLLIANCE. (REF # [id number] ) BRINGS IN MEDICATIONS WHICH IS APPROPRIATE FOR WHAT WAS DISPENSED. RECENT URINE TOXICOLOGY REVIEWED. NO UNAUTHORIZED MEDICATIONS. NO ILLICIT SUBSTANCES AND PRESCRIBED MEDICATIONS WERE PRESENT. INTERVERTEBRAL DISC DISORDER WITH RADICULOPATHY OF LUMBOSACRAL REGION REFILL PERCOCET TABLET, 5-325 MG, 1 TABLET, ORALLY, EVERY 4 -6 HOURS PRN PAIN MDD=4, 30 DAY(S), 120, REFILLS 0, NOTES: 04-16-19 0330 REFILL NUCYNTA ER TABLET EXTENDED RELEASE 12 HOUR, 100 MG, 1 TABLET, ORALLY FOR PAIN, EVERY 24 HRS MDD1, 30 DAYS, 30, REFILLS 0, NOTES: 04-15-19 1900 OTHERS NOTES: FACET JOINT INJECTION MATERIAL WAS PRINTED. PROCEDURES PN WORKMANS' COMP OPINION IN YOUR OPINION, WAS THE INCIDENT THAT THE PATIENT DESCRIBED THE COMPETENT MEDICAL CAUSE OF THIS INJURY/ILLNESS? YES ARE THE PATIENT'S COMPLAINTS CONSISTENT WITH HIS/HER HISTORY OF THE INJURY/ILLNESS? YES IS THE PATIENT'S HISTORY OF THE INJURY/ILLNESS CONSISTENT WITH YOUR OBJECTIVE FINDING? YES WHAT IS THE PERCENTAGE OF TEMPORARY IMPAIRMENT? MARKED = 75% IS THE PATIENT WORKING? NO DOCTOR ON SITE: ARLEY HANKS MD [facility] PAIN CLINIC TEACHING: THE PATIENT HAS BEEN EDUCATED REGARDING PAIN, THE RISK FOR PAIN, THE IMPORTANCE OF EFFECTIVE PAIN MANAGEMENT, AND THE PAIN ASSESSMENT PROCESS. : PRE- PROCEDURE INSTRUCTIONSTEACHING ON A BILATERAL THERAPEUTIC LUMBAR FACET BLOCK ON HIS L4-L5, L5-S1 WAS GIVEN TO THE PATIENT. THE PATIENT ACKNOWLEDGES UNDERSTANDING FOR HIS PLAN OF CARE. PT WAS GIVEN A URINE UTOX AND NARCOTIC AGREEMENT. - JULITO GIORDANO [facility] PROCEDURE CODES FA211 ESTABILISHED PATIENT [facility] CHARGE DISPOSITION & COMMUNICATION FOLLOW UP POSTPROCEDURE (REASON: BILATERAL THERAPEUTIC LUMBAR FACET L4-L5 L5-S1) ELECTRONICALLY SIGNED BY PAT DC ON 02/08/2020 AT 10:36 AM EDT DISCLAIMER : THIS IS A VISIT SUMMARY EXTRACTED FROM THE [employer] CHART. IT IS NOT A COPY OF THE [employer] PROGRESS NOTE. MTDD
== END ==
LOC: M PAIN 14:30
PROVIDERS: ATTEND Family Medicine
DX: M47.817 Spondylosis without myelopathy or radiculopathy, lumbosacral region (principal); M51.17 Intervertebral disc disorders with radiculopathy, lumbosacral region; G89.29 Other chronic pain; Z87.891 Personal history of nicotine dependence; Z79.891 Long term (current) use of opiate analgesic; Z79.899 Other long term (current) drug therapy

== ENCOUNTER 2020-05-11 17:49 | Emergency (ER) | payer OTHER, SELFPAY ==
[~2020-05-11] VITALS: Ht 177.8 cm; Wt 102.9 kg
[2020-05-11 19:18] LABS: HEMATOCRIT 41.5 % (42.0-52.0); HEMOGLOBIN 13.5 g/dl (13.5-17.5); MEAN CORPUSCULAR HEMOGLOBIN 28.6 pg (27.0-33.0); MEAN CORPUSCULAR HGB CONC 32.5 g/dl (32.0-36.5); MEAN CORPUSCULAR VOLUME 87.9 fl (80.0-96.0); PLATELET COUNT, AUTOMATED 265 10^3/uL (150-450); RED BLOOD COUNT 4.72 10^6/uL (4.30-6.10)
[2020-05-11] MEDS ORDERED: KEFL500C17 PO (19:42)
[2020-05-11] MEDS ORDERED: CEPHALEXIN 500 MG CAP PO ONE (19:45)
[2020-05-11] MEDS ORDERED: cefTRIAXone SOD 2 GM VIAL (J0696 PER 250MG) IM ONE (19:45)
[2020-05-11] MEDS ORDERED: LIDOCAINE 1% SDV 5ML VIAL DILUENT ONE (19:45)
[2020-05-11 19:54] LABS: ALBUMIN 3.8 GM/DL (3.2-5.2); ALT/SGPT 27 U/L (12-78); BILIRUBIN,DIRECT < 0.1 MG/DL (0.0-0.2); BILIRUBIN,TOTAL 0.2 MG/DL (0.2-1.0); BLOOD UREA NITROGEN 18 MG/DL (7-18); CALCIUM LEVEL 8.9 MG/DL (8.5-10.1); CARBON DIOXIDE LEVEL 31 MEQ/L (21-32); CHLORIDE LEVEL 107 MEQ/L (98-107); CREATININE FOR GFR 1.24 MG/DL (0.70-1.30); GLOMERULAR FILTRATION RATE > 60.0 (>56); GLUCOSE, FASTING 99 MG/DL (70-100); POTASSIUM SERUM 4.4 MEQ/L (3.5-5.1); SODIUM LEVEL 141 MEQ/L (136-145)
[2020-05-11 20:23] VITALS: BP 127/79
== END 2020-05-11 20:20 | disposition home or self-care (01) ==
LOC: M ED 17:49
DX: L03.114 Cellulitis of left upper limb (principal); Z88.8 Allergy status to other drugs, medicaments and biological substances; Z79.899 Other long term (current) drug therapy
CPT/HCPCS: 80048; 80076; 85027; 96372; 99283; J0696

== ENCOUNTER 2020-05-12 10:08 | Emergency (ER) | payer SELFPAY ==
[~2020-05-12] VITALS: Ht 177.8 cm; Wt 101.8 kg
[~2020-05-12 10:08] MED LIST changes: +KEFL500C17 PO
[2020-05-12 10:09] VITALS: BP 114/73
[2020-05-12] MEDS ORDERED: CEPHALEXIN 500 MG CAP PO ONE (11:30)
[2020-05-12 11:45] LABS: BASO # 0.1 10^3/uL (0.0-0.2); BASO % 0.8 % (0.0-1.0); EOS # 0.3 10^3/uL (0.0-0.5); EOS % 3.5 % (0.0-3.0); HEMATOCRIT 45.9 % (42.0-52.0); HEMOGLOBIN 14.9 g/dl (13.5-17.5); LYMPH % 22.3 % (24.0-44.0); MEAN CORPUSCULAR HEMOGLOBIN 28.7 pg (27.0-33.0); MEAN CORPUSCULAR HGB CONC 32.5 g/dl (32.0-36.5); MEAN CORPUSCULAR VOLUME 88.3 fl (80.0-96.0); MONO # 0.6 10^3/uL (0.0-0.8); MONO % 6.3 % (0.0-5.0); NEUTROPHILS # 5.9 10^3/uL (1.5-8.5); NEUTROPHILS % 66.9 % (36.0-66.0); PLATELET COUNT, AUTOMATED 264 10^3/uL (150-450); WHITE BLOOD COUNT 8.8 10^3/uL (4.0-10.0)
[2020-05-12 12:10] LABS: BLOOD UREA NITROGEN 13 MG/DL (7-18); CALCIUM LEVEL 9.2 MG/DL (8.5-10.1); CARBON DIOXIDE LEVEL 29 MEQ/L (21-32); CHLORIDE LEVEL 106 MEQ/L (98-107); CREATININE FOR GFR 1.05 MG/DL (0.70-1.30); GLOMERULAR FILTRATION RATE > 60.0 (>56); GLUCOSE, FASTING 99 MG/DL (70-100); POTASSIUM SERUM 4.1 MEQ/L (3.5-5.1); SODIUM LEVEL 140 MEQ/L (136-145)
== END 2020-05-12 12:28 | disposition home or self-care (01) ==
LOC: M ED 10:08
DX: L03.114 Cellulitis of left upper limb (principal); Z79.891 Long term (current) use of opiate analgesic; Z79.899 Other long term (current) drug therapy; Z88.8 Allergy status to other drugs, medicaments and biological substances

== ENCOUNTER 2020-05-21 13:06 | Emergency (ER) | payer SELFPAY ==
[~2020-05-21] VITALS: Ht 177.8 cm; Wt 102.6 kg
--- OUTSIDE RECORDS SUMMARY | 2020-05-21 13:12 | CCD ---
Author Author [facility] Organization [facility] Address Unknown Phone Unavailable Care Team Providers Care Supervisor [employer] Name Role Phone NRI, 292 Unavailable Unavailable Amelie Dowd MD Unavailable Unavailable DRAZEK, I ANT PA Unavailable Unavailable DRAZEK, I ANT PA Unavailable Unavailable DRAZEK, I ANT PA Unavailable Unavailable DRAZEK, I ANT PA Unavailable Unavailable DRAZEK, I ANT PA Unavailable Unavailable DRAZEK, I ANT PA Unavailable Unavailable DRAZEK, I ANT PA Unavailable Unavailable DRAZEK, I ANT PA Unavailable Unavailable DRAZEK, I ANT PA Unavailable Unavailable DRAZEK, I ANT PA Unavailable Unavailable DRAZEK, I ANT PA Unavailable Unavailable DRAZEK, I ANT PA Unavailable Unavailable DRAZEK, I ANT PA Unavailable Unavailable DRAZEK, I ANT PA Unavailable Unavailable DRAZEK, I ANT PA Unavailable Unavailable DRAZEK, I ANT PA Unavailable Unavailable DRAZEK, I ANT PA Unavailable Unavailable DRAZEK, I ANT PA Unavailable Unavailable DRAZEK, I ANT PA Unavailable Unavailable DRAZEK, I ANT PA Unavailable Unavailable DRAZEK, I ANT PA Unavailable Unavailable DRAZEK, I ANT PA Unavailable Unavailable DRAZEK, I ANT PA Unavailable Unavailable DRAZEK, I ANT PA Unavailable Unavailable DRAZEK, I ANT PA Unavailable Unavailable DRAZEK, I ANT PA Unavailable Unavailable DRAZEK, I ANT PA Unavailable Unavailable DRAZEK, I ANT PA Unavailable Unavailable DRAZEK, I ANT PA Unavailable Unavailable DRAZEK, I ANT PA Unavailable Unavailable Fish, B Osman WHITMORE Unavailable Unavailable Fish, B Osmna WHITMORE Unavailable Unavailable Fish, B Osman WHITMORE Unavailable Unavailable Fish, B Osman WHITMORE Unavailable Unavailable Fish, B Osman WHITMORE Unavailable Unavailable Fish, B Osman WHITMORE Unavailable Unavailable Fish, B Osman WHITMORE Unavailable Unavailable Fish, B Osman WHITMORE Unavailable Unavailable Fish, B Osman WHITMORE Unavailable Unavailable Fish, B Osman WHITMORE Unavailable Unavailable Fish, B Osman WHITMORE Unavailable Unavailable Fish, B Osman WHITMORE Unavailable Unavailable Fish, B Osman WHITMORE Unavailable Unavailable Fish, B Osman WHITMORE Unavailable Unavailable Fish, B Osman WHITMORE Unavailable Unavailable Fish, B Osman WHITMORE Unavailable Unavailable Fish, B Osman WHITMORE Unavailable Unavailable Fish, B Osman WHITMORE Unavailable Unavailable Fish, B Osman WHITMORE Unavailable Unavailable Fish, B Osman WHITMORE Unavailable Unavailable Fish, B Osman WHITMORE Unavailable Unavailable Fish, B Osman WHITMORE Unavailable Unavailable Fish, B Osman WHITMORE Unavailable Unavailable Fish, B Osman WHITMORE Unavailable Unavailable Fish, B Osman WHITMORE Unavailable Unavailable Fish, B Osman WHITMORE Unavailable Unavailable Fish, B Osman WHITMORE Unavailable Unavailable Fish, B Osman WHITMORE Unavailable Unavailable Fish, B Osman WHITMORE Unavailable Unavailable Fish, B Osman WHITMORE Unavailable Unavailable Fish, B Osman WHITMORE Unavailable Unavailable Fish, B Osman WHITMORE Unavailable Unavailable Fish, B Osman WHITMORE Unavailable Unavailable Fish, B Osman WHITMORE Unavailable Unavailable Fish, B Osman WHITMORE Unavailable Unavailable Fish, B Osman WHITMORE Unavailable Unavailable Fish, B Osman WHITMORE Unavailable Unavailable Fish, B Osman WHITMORE Unavailable Unavailable Fish, B Osman WHITMORE Unavailable Unavailable Fish, B Osman WHITMORE Unavailable Unavailable Fish, B Osman WHITMORE Unavailable Unavailable Fish, B Osman WHITMORE Unavailable Unavailable Fish, B Osman WHITMORE Unavailable Unavailable Fish, B Osman WHITMORE Unavailable Unavailable Fish, B Osman WHITMORE Unavailable Unavailable Fish, B Osman WHITMORE Unavailable Unavailable Fish, B Osman WHITMORE Unavailable Unavailable Fish, B Osman WHITMORE Unavailable Unavailable Fish, B Osman WHITMORE Unavailable Unavailable Fish, B Osman WHITMORE Unavailable Unavailable Fish, B Osman WHITMORE Unavailable Unavailable Fish, B Osman WHITMORE Unavailable Unavailable Fish, B Osman WHITMORE Unavailable Unavailable Re-disclosure Warning The records that you are about to access may contain information from federally-assisted alcohol or drug abuse programs. If such information is present, then the following federally mandated warning applies: This information has been disclosed to you from records protected by federal confidentiality rules (42 CFR part 2). The federal rules prohibit you from making any further disclosure of this information unless further disclosure is expressly permitted by the written consent of the person to whom it pertains or as otherwise permitted by 42 CFR part 2. A general authorization for the release of medical or other information is NOT sufficient for this purpose. The Federal rules restrict any use of the information to criminally investigate or prosecute any alcohol or drug abuse patient.The records that you are about to access may contain highly sensitive health information, the redisclosure of which is protected by Article 27-F of the [facility] Public Health law. If you continue you may have access to information: Regarding HIV / AIDS; Provided by facilities licensed or operated by the [facility] Office of Mental Health; or Provided by the [facility] Office for People With Developmental Disabilities. If such information is present, then the following [facility] mandated warning applies: This information has been disclosed to you from confidential records which are protected by state law. State law prohibits you from making any further disclosure of this information without the specific written consent of the person to whom it pertains, or as otherwise permitted by law. Any unauthorized further disclosure in violation of state law may result in a fine or longterm sentence or both. A general authorization for the release of medical or other information is NOT sufficient authorization for further disc losure. Allergies and Adverse Reactions Type Description Substance Reaction Status Data Source(s ) Adverse Reaction Adverse Reaction Trazodone ME DENT ([facility] ) Substance/Environmental Agent Allergy Substance/Environmenta l Agent Allergy pregabalin MEDENT ([facility] ) Drug Allergy Drug Allergy NKDA MEDENT ([facility] ) Encounters Encounter Providers Location Date Indications Data Source(s ) Unknown [address] [facility] [id number] 05/12/2020 12:00:00 AM EST eCW1 ([facility]) Unknown [address] [facility] [place] [address] 04/13/2020 12:00:00 AM EST eCW1 ([facility]) Unknown [address] [facility] [place] [address] 03/11/2020 12:00:00 AM EST eCW1 ([facility]) Unknown [address] [facility] [place] [address] 02/19/2020 12:00:00 AM EDT eCW1 ([facility]) Outpatient [address] [facility] [id number] 02/05/2020 12:00:00 AM EDT eCW1 ([facility]) Outpatient Attender: Osman Kellogg MD Physical Therapy 11/25/2019 1 0:30:00 AM EDT MEDENT ([facility]) OFFICE OUTPATIENT NEW 30 MINUTES Attender: ANT CALZADA Physic al Therapy 11/23/2019 02:00:00 PM EDT MEDENT ([facility]) Unknown [address] [facility] [id number] 11/17/2019 12:00:00 AM EDT eCW1 ([facility]) Unknown [address] [facility] [id number] 10/20/2019 12:00:00 AM EDT eCW1 ([facility]) [facility] [address] [place] [phone] 10/02/2019 12:00:00 AM EDT eCW1 ([facility]) Recurring Patient Referrer: Bob Dowd MD 09/25/2019 01:55:30 PM EDT [facility] [address] [place] [phone] 09/23/2019 12:00:00 AM EDT eCW1 ([facility]) [facility] Urology [address] [facility] [id number] 08/24/2019 12:00:00 AM EDT eCW1 ([facility]) [facility] [address] [place] [phone] 07/31/2019 12:00:00 AM EDT eCW1 ([facility]) [facility] [address] [place] [phone] 07/27/2019 12:00:00 AM EDT eCW1 ([facility]) [facility] [address] [place] [phone] 06/23/2019 12:00:00 AM EST eCW1 ([facility]) [facility] [address] [place] [phone] 05/25/2019 12:00:00 AM EST eCW1 ([facility]) [facility] [address] [place] [phone] 05/15/2019 12:00:00 AM EST eCW1 ([facility]) Outpatient Referrer: 292 NRI 05/08/2019 05:45:00 AM EST [facility] [address] [place] [phone] 04/24/2019 12:00:00 AM EST eCW1 ([facility]) [facility] [address] [place] [phone] 04/16/2019 12:00:00 AM EST eCW1 ([facility]) [address] [phone] 04/08/2019 12:00:00 AM EST eCW1 ([facility]) [facility] [address] [place] [phone] 03/26/2019 12:00:00 AM EST eCW1 ([facility]) Immunizations Vaccine Date Status Description Data Source(s) INFLUENZA VIRUS VACCINE QUADRIVALENT 2019- (6 MOS AN D UP) 02/16/2020 12:00:00 AM EDT completed [facility] INFLUENZA VIRUS VACCINE QUADRIVAL (6 MOS AND UP)/PF 05/20/2019 12:00:00 AM EST completed [facility] Medications Medication Brand Name Start Date Product Form Dose Route Admi nistrative Instructions Pharmacy Instructions Status Indications Reaction Description Data Source(s) 5-325 mg 05/16/2020 12:00:00 AM EST tablet 120 TAKE ONE TABLET BY MOUTH EVERY 4 TO 6 HOURS NEEDED FOR PAIN, MAXIMUM DAILY DOSE = FOUR TABLETS TAKE ONE TABLET BY MOUTH EVERY 4 TO 6 HOURS NEEDED FOR PAIN, MAXIMUM DAILY DOSE = FOUR TABLETS SOLD: 05/16/2020 [facility] 100 mg 05/16/2020 12:00:00 AM EST tablet extended release 12 hr 30 TAKE ONE TABLET BY MOUTH EVERY DAY FOR PAIN, MAXIMUM DAILY DOSE = ONE TABLET TAKE ONE TABLET BY MOUTH EVERY DAY FOR PAIN, MAXIMUM DAILY DOSE = ONE TABLET SOLD: 05/16/2020 [facility] 350 mg 05/16/2020 12:00:00 AM EST tablet 12 TAKE ONE TABLET BY MOUTH AT BEDTIME EVERY 2 TO 3 NIGHTS NEEDED FOR PAIN AND SPASMS, MAXIMUM DAILY DOSE = ONE TABLET TAKE ONE TABLET BY MOUTH AT BEDTIME EVER Y 2 TO 3 NIGHTS NEEDED FOR PAIN AND SPASMS, MAXIMUM DAILY DOSE = ONE TABLET SOLD: 05/16/2020 [facility] Acetaminophen 325 MG / Oxycodone Hydroch loride 5 MG Oral Tablet [Percocet] Percocet 5-325 MG Percocet 5-325 MG 05/13/2020 12:00:00 AM EST 1.0 {t ablet} active Percocet 5-325 MG eCW1 ([facility]) 12 HR tapentadol 100 MG Extended Release Oral Tablet [Nucynta] Nucynta ER 100 MG [facility] 100 MG 05/13/2020 12:00:00 AM EST 1.0 {tablet} active Nucynta ER 100 MG eCW1 ([facility]) Cephalexin 500 MG Oral Capsule CEPHALEXIN 05/12/2020 12:00:00 AM EST capsule 40 TAKE ONE CAPSULE BY MOUTH EVERY 6 HOURS TAKE ONE CAPSU LE BY MOUTH EVERY 6 HOURS SOLD: 05/12/2020 [facility] 350 mg 04/17/2020 12:00:00 AM EST tablet 12 TAKE ONE TABLET BY MOUTH EVERY DAY AT BEDTIME NEEDED EVERY 2-3 NIGHTS FOR SPASMS AND PAIN MAXIMUM DAILY DOSE = ONE TABLET TAKE ONE TABLET BY MOUTH EVERY DAY AT BE DTIME NEEDED EVERY 2-3 NIGHTS FOR SPASMS AND PAIN MAXIMUM DAILY DOSE = ONE TABLET SOLD: 04/17/2020 [facility] 5-325 mg 04/17/2020 12:00:00 AM EST tablet 108 TAKE ONE TABLET BY MOUTH EVERY 4 TO 6 HOURS NEEDED FOR PAIN MAXIMUM DAILY DOSE = FOUR TABLETS TAKE ONE TABLET BY MOUTH EVERY 4 TO 6 HOURS NEEDED FOR PAIN MAXIMUM DAILY DOSE = FOUR TABLETS SOLD: 04/19/2020 [facility] 100 mg 04/16/2020 12:00:00 AM EST tablet extended release 12 hr 30 TAKE ONE TABLET BY MOUTH EVERY 24 HOURS NEEDED FOR PAIN MAXIMUM DAILY DOSE = ONE TABLET TAKE ONE TABLET BY MOUTH EVERY 24 HOURS NEEDED FOR PAIN MAXIMUM DAILY DOSE = ONE TABLET SOLD: 04/17/2020 [facility] 12 HR tapentadol 100 MG Extended Release Oral Tablet [Nucynta] Nucynta ER 100 MG [facility] ER 100 MG 04/13/2020 12:00:00 AM EST 1.0 {tablet} active Nucynta ER 100 MG eCW1 ([facility]) Acetaminophen 325 MG / Oxycodone Hydroch loride 5 MG Oral Tablet [Percocet] Percocet 5-325 MG Percocet 5-325 MG 04/13/2020 12:00:00 AM EST 1.0 {t ablet} active Percocet 5-325 MG eCW1 ([facility]) 350 mg 03/19/2020 12:00:00 AM EST tablet 12 TAKE ONE TABLET BY MOUTH AT BEDTIME NEEDED EVERY 2 TO 3 NIGHTS FOR SPASMS AND PAIN MAXIMUM DAILY DOSE = ONE TABLET TAKE ONE TABLET BY MOUTH AT BEDTIME N EEDED EVERY 2 TO 3 NIGHTS FOR SPASMS AND PAIN MAXIMUM DAILY DOSE = ONE TABLET SOLD: 03/19/2020 [facility] 100 mg 03/18/2020 12:00:00 AM EST tablet extended release 12 hr 30 TAKE ONE TABLET BY MOUTH EVERY 24 HOURS FOR PAIN, MAXIMUM DAILY DOSE = ONE TABLET TAKE ONE TABLET BY MOUTH EVERY 24 HOURS FOR PAIN, MAXIMUM DAILY DOSE = ONE TABLET SOLD: 03/18/2020 [facility] 5-325 mg 03/18/2020 12:00:00 AM EST tablet 120 TAKE ONE TABLET BY MOUTH EVERY 4 TO 6 HOURS NEEDED FOR PAIN MAXIMUM DAILY DOSE = 4 TAKE ONE TABLET BY MOUTH EVERY 4 TO 6 HOURS NEEDED FOR PAIN MAXIMUM DAILY DOSE = 4 SOLD: 03/18/2020 [facility] Acetaminophen 325 MG / Oxycodone Hydroch loride 5 MG Oral Tablet [Percocet] Percocet 5-325 MG Percocet 5-325 MG 03/11/2020 12:00:00 AM EST 1.0 {t ablet} active Percocet 5-325 MG eCW1 ([facility]) 12 HR tapentadol 100 MG Extended Release Oral Tablet [Nucynta] Nucynta ER 100 MG [facility] ER 100 MG 03/11/2020 12:00:00 AM EST 1.0 {tablet} active Nucynta ER 100 MG eCW1 ([facility]) 350 mg 02/19/2020 12:00:00 AM EDT tablet 12 TAKE ONE TABLET BY MOUTH EVERY DAY AT BEDTIME EVERY 2 TO 3 NIGHTS FOR SPASMS AND PAIN, MAXIMUM DAILY DOSE = ONE TABLET TAKE ONE TABLET BY MOUTH EVERY DAY AT BE DTIME EVERY 2 TO 3 NIGHTS FOR SPASMS AND PAIN, MAXIMUM DAILY DOSE = ONE TABLET SOLD: 02/19/2020 [facility] 100 mg 02/18/2020 12:00:00 AM EDT tablet extended release 12 hr 30 TAKE ONE TABLET BY MOUTH EVERY 24 HOURS FOR PAIN , MAXIMUM DAILY DOSE = 1 TABLET TAKE ONE TABLET BY MOUTH EVERY 24 HOURS FOR PAIN , MAXIMUM DAILY DOSE = 1 TABLET SOLD: 02/18/2020 [facility] 5-325 mg 02/18/2020 12:00:00 AM EDT tablet 120 TAKE ONE TABLET BY MOUTH EVERY 4 TO 6 HOURS NEEDED FOR PAIN , MAXIMUM DAILY DOSE = 4 TABLETS TAKE ONE TABLET BY MOUTH EVERY 4 TO 6 HOURS NEEDED FOR PAIN , MAXIMUM DAILY DOSE = 4 TABLETS SOLD: 02/18/2020 [facility] Acetaminophen 325 MG / Oxycodone Hydroch loride 5 MG Oral Tablet [Percocet] Percocet 5-325 MG Percocet 5-325 MG 02/05/2020 12:00:00 AM EDT 1.0 {t ablet} active Percocet 5-325 MG eCW1 ([facility]) 12 HR tapentadol 100 MG Extended Release Oral Tablet [Nucynta] Nucynta ER 100 MG [facility] 100 MG 02/05/2020 12:00:00 AM EDT 1.0 {tablet} active Nucynta ER 100 MG eCW1 ([facility]) Acetaminophen 325 MG / Oxycodone Hydroch loride 5 MG Oral Tablet [Percocet] Percocet 5-325 MG Percocet 5-325 MG 02/05/2020 12:00:00 AM EDT 1.0 {t ablet} active Percocet 5-325 MG eCW1 ([facility]) 12 HR tapentadol 100 MG Extended Release Oral Tablet [Nucynta] Nucynta ER 100 MG [facility] ER 100 MG 02/05/2020 12:00:00 AM EDT 1.0 {tablet} active Nucynta ER 100 MG eCW1 ([facility]) 350 mg 01/20/2020 12:00:00 AM EDT tablet 12 TAKE ONE TABLET BY MOUTH EVERY DAY AT BEDTIME EVERY 2-3 NIGHTS NEEDED FOR SPASMS AND PAIN MAXIMUM DAILY DOSE = ONE TABLET TAKE ONE TABLET BY MOUTH EVERY DAY AT BE DTIME EVERY 2-3 NIGHTS NEEDED FOR SPASMS AND PAIN MAXIMUM DAILY DOSE = ONE TABLET SOLD: 01/20/2020 [facility] 5-325 mg 01/20/2020 12:00:00 AM EDT tablet 120 TAKE ONE TABLET BY MOUTH EVERY 4 TO 6 HOURS NEEDED FOR PAIN MAXIMUM DAILY DOSE = FOUR TABLETS TAKE ONE TABLET BY MOUTH EVERY 4 TO 6 HOURS NEEDED FOR PAIN MAXIMUM DAILY DOSE = FOUR TABLETS SOLD: 01/20/2020 [facility] 100 mg 01/20/2020 12:00:00 AM EDT tablet extended release 12 hr 30 TAKE ONE TABLET BY MOUTH EVERY DAY MAXIMUM DAILY DOSE = 1 TABLET TAKE ONE TABLET BY MOUTH EVERY DAY MAXIMUM DAILY DOSE = 1 TABLET SOLD: 01/20/2020 [facility] 100 mg 12/22/2019 12:00:00 AM EDT tablet extended release 12 hr 30 TAKE ONE TABLET BY MOUTH ONCE DAILY MAXIMUM DAILY DOSE = 1 TABLET TAKE ONE TABLET BY MOUTH ONCE DAILY MAXIMUM DAILY DOSE = 1 TABLET SOLD: 12/22/2019 [facility] 5-325 mg 12/22/2019 12:00:00 AM EDT tablet 120 TAKE ONE TABLET BY MOUTH EVERY 4 TO 6 HOURS NEEDED FOR PAIN, MAXIMUM DAILY DOSE = FOUR TABLETS TAKE ONE TABLET BY MOUTH EVERY 4 TO 6 HOURS NEEDED FOR PAIN, MAXIMUM DAILY DOSE = FOUR TABLETS SOLD: 12/22/2019 [facility] 350 mg 12/22/2019 12:00:00 AM EDT tablet 12 TAKE ONE TABLET BY MOUTH EVERY 2 TO 3 NIGHTS AT BEDTIME NEEDED FOR SPASMS AND PAIN, MAXIMUM DAILY DOSE = ONE TABLET TAKE ONE TABLET BY MOUTH EVERY 2 TO 3 NI GHTS AT BEDTIME NEEDED FOR SPASMS AND PAIN, MAXIMUM DAILY DOSE = ONE TABLET SOLD: 12/22/2019 [facility] tramadol hydrochloride 50 MG Oral Tablet Tramadol HCL 11/27/2019 12:00:00 AM EDT active MEDENT ([facility]) 50 mg 11/27/2019 12:00:00 AM EDT tablet 30 TAKE ONE TO TWO TABLETS BY MOUTH EVERY 6 HOURS NEEDED FOR PAIN MAXIMUM DAILY DOSE = SIX TABLETS TAKE ONE TO TWO TABLETS BY MOUTH EVERY 6 HOURS NEEDED FOR PAIN MAXIMUM DAILY DOSE = SIX TABLETS SOLD: 11/27/2019 [facility] 100 mg 11/22/2019 12:00:00 AM EDT tablet extended release 12 hr 30 TAKE ONE TABLET BY MOUTH EVERY DAY , MAXIMUM DAILY DOSE = 1 TABLET TAKE ONE TABLET BY MOUTH EVERY DAY , MAXIMUM DAILY DOSE = 1 TABLET SOLD: 11/22/2019 [facility] 350 mg 11/22/2019 12:00:00 AM EDT tablet 12 TAKE ONE TABLET BY MOUTH AT BEDTIME EVERY 2-3 NIGHTS NEEDED FOR SPASMS AND PAIN , MAXIMUM DAILY DOSE = 1 TABLET TAKE ONE TABLET BY MOUTH AT BEDTIME EVER Y 2-3 NIGHTS NEEDED FOR SPASMS AND PAIN , MAXIMUM DAILY DOSE = 1 TABLET SOLD: 11/22/2019 [facility] 5-325 mg 11/22/2019 12:00:00 AM EDT tablet 120 TAKE ONE TABLET BY MOUTH EVERY 4 TO 6 HOURS NEEDED FOR PAIN , MAXIMUM DAILY DOSE = 4 TABLETS TAKE ONE TABLET BY MOUTH EVERY 4 TO 6 HOURS NEEDED FOR PAIN , MAXIMUM DAILY DOSE = 4 TABLETS SOLD: 11/22/2019 [facility] Acetaminophen 325 MG / Oxycodone Hydroch loride 5 MG Oral Tablet [Percocet] Percocet 5-325 MG Percocet 5-325 MG 11/18/2019 12:00:00 AM EDT 1.0 {t ablet} active Percocet 5-325 MG eCW1 ([facility]) 12 HR tapentadol 100 MG Extended Release Oral Tablet [Nucynta] Nucynta ER 100 MG Nu[facility]nta ER 100 MG 11/18/2019 12:00:00 AM EDT 1.0 {tablet} active Nucynta ER 100 MG eCW1 ([facility]) 350 mg 10/24/2019 12:00:00 AM EDT tablet 12 TAKE ONE TABLET BY MOUTH EVERY 2-3 NIGHTS AT BEDTIME FOR SPASMS AND PAIN , MAXIMUM DAILY DOSE = 1 TABLET TAKE ONE TABLET BY MOUTH EVERY 2-3 NIGHTS AT BEDTIME FOR SPASMS AND PAIN , MAXIMUM DAILY DOSE = 1 TABLET SOLD: 10/24/2019 [facility] 5-325 mg 10/24/2019 12:00:00 AM EDT tablet 120 TAKE ONE TABLET BY MOUTH EVERY 4 TO 6 HOURS NEEDED FOR PAIN , MAXIMUM DAILY DOSE = 4 TABLETS TAKE ONE TABLET BY MOUTH EVERY 4 TO 6 HOURS NEEDED FOR PAIN , MAXIMUM DAILY DOSE = 4 TABLETS SOLD: 10/24/2019 [facility] 100 mg 10/24/2019 12:00:00 AM EDT tablet extended release 12 hr 30 TAKE ONE TABLET BY MOUTH EVERY DAY FOR PAIN , MAXIMUM DAILY DOSE = 1 TABLET TAKE ONE TABLET BY MOUTH EVERY DAY FOR PAIN , MAXIMUM DAILY DOSE = 1 TABLET SOLD: 10/24/2019 [facility] Acetaminophen 325 MG / Oxycodone Hydroch loride 5 MG Oral Tablet [Percocet] Percocet 5-325 MG Percocet 5-325 MG 10/20/2019 12:00:00 AM EDT 1.0 {t ablet} active Percocet 5-325 MG eCW1 ([facility]) 12 HR tapentadol 100 MG Extended Release Oral Tablet [Nucynta] Nucynta ER 100 MG [facility] ER 100 MG 10/20/2019 12:00:00 AM EDT 1.0 {tablet} active Nucynta ER 100 MG eCW1 ([facility]) 100 mg 09/25/2019 12:00:00 AM EDT tablet extended release 12 hr 30 TAKE ONE TABLET BY MOUTH EVERY DAY FOR PAIN, MAXIMUM DAILY DOSE = ONE TABLET TAKE ONE TABLET BY MOUTH EVERY DAY FOR PAIN, MAXIMUM DAILY DOSE = ONE TABLET SOLD: 09/25/2019 [facility] 5-325 mg 09/24/2019 12:00:00 AM EDT tablet 120 TAKE ONE TABLET BY MOUTH EVERY 4 TO 6 HOURS NEEDED FOR PAIN, MAXIMUM DAILY DOSE = FOUR TABLETS TAKE ONE TABLET BY MOUTH EVERY 4 TO 6 HOURS NEEDED FOR PAIN, MAXIMUM DAILY DOSE = FOUR TABLETS SOLD: 09/25/2019 [facility] 12 HR tapentadol 100 MG Extended Release Oral Tablet [Nucynta] Nucynta ER 100 MG Nucynta ER 100 MG 09/24/2019 12:00:00 AM EDT active 1 tablet eCW1 ([facility]) 350 mg 09/24/2019 12:00:00 AM EDT tablet 12 TAKE ONE TABLET BY MOUTH EVERY 2-3 NIGHTS AT BEDTIME FOR SPASMS AND PAIN MAXIMUM DAILY DOSE = ONE TABLET TAKE ONE TABLET BY MOUTH EVERY 2-3 NIGHTS AT BEDTIME FOR SPASMS AND PAIN MAXIMUM DAILY DOSE = ONE TABLET SOLD: 09/25/2019 [facility] Acetaminophen 325 MG / Oxycodone Hydroch loride 5 MG Oral Tablet [Percocet] Percocet 5-325 MG Percocet 5-325 MG 09/24/2019 12:00:00 AM EDT active 1 tablet eCW1 ([facility]) 5-325 mg 08/27/2019 12:00:00 AM EDT tablet 120 TAKE ONE TABLET BY MOUTH EVERY 4-6 HOURS NEEDED FOR PAIN , MAXIMUM DAILY DOSE = 4 TABLETS TAKE ONE TABLET BY MOUTH EVERY 4-6 HOURS NEEDED FOR PAIN , MAXIMUM DAILY DOSE = 4 TABLETS SOLD: 08/27/2019 [facility] 100 mg 08/27/2019 12:00:00 AM EDT tablet extended release 12 hr 30 TAKE ONE TABLET BY MOUTH EVERY 24 HOURS NEEDED FOR PAIN, MAXIMUM DAILY DOSE = ONE TABLET TAKE ONE TABLET BY MOUTH EVERY 24 HOURS NEEDED FOR PAIN, MAXIMUM DAILY DOSE = ONE TABLET SOLD: 08/27/2019 [facility] 350 mg 08/26/2019 12:00:00 AM EDT tablet 12 TAKE ONE TABLET BY MOUTH AT BEDTIME NEEDED EVERY 2-3 NIGHTS FOR SPASMS AND PAIN , MAXIMUM DAILY DOSE = 1 TABLET TAKE ONE TABLET BY MOUTH AT BEDTIME N EEDED EVERY 2-3 NIGHTS FOR SPASMS AND PAIN , MAXIMUM DAILY DOSE = 1 TABLET SOLD: 08/26/2019 [facility] 12 HR tapentadol 100 MG Extended Release Oral Tablet [Nucynta] Nucynta ER 100 MG [facility] ER 100 MG 08/25/2019 12:00:00 AM EDT active 1 tablet eCW1 ([facility]) Acetaminophen 325 MG / Oxycodone Hydroch loride 5 MG Oral Tablet [Percocet] Percocet 5-325 MG Percocet 5-325 MG 08/25/2019 12:00:00 AM EDT active 1 tablet eCW1 ([facility]) 5-325 mg 07/29/2019 12:00:00 AM EDT tablet 120 TAKE ONE TABLET BY MOUTH EVERY 4 TO 6 HOURS NEEDED FOR PAIN, MAXIMUM DAILY DOSE = FOUR TABLETS TAKE ONE TABLET BY MOUTH EVERY 4 TO 6 HOURS NEEDED FOR PAIN, MAXIMUM DAILY DOSE = FOUR TABLETS SOLD: 07/29/2019 [facility] 100 mg 07/29/2019 12:00:00 AM EDT tablet extended release 12 hr 30 TAKE ONE TABLET BY MOUTH EVERY DAY FOR PAIN, MAXIMUM DAILY DOSE = ONE TABLET TAKE ONE TABLET BY MOUTH EVERY DAY FOR PAIN, MAXIMUM DAILY DOSE = ONE TABLET SOLD: 07/29/2019 [facility] 200 mg 07/28/2019 12:00:00 AM EDT capsule 30 TAKE ONE CAPSULE BY MOUTH EVERY DAY NEEDED FOR PAIN TAKE ONE CAPSULE BY MOUTH EVERY DAY NEEDED FOR PAIN SOLD: 07/29/2019 [facility] 350 mg 07/28/2019 12:00:00 AM EDT tablet 12 TAKE ONE TABLET BY MOUTH AT BEDTIME EVERY TWO TO THREE NIGHTS FOR SPASMS AND PAIN, MAXIMUM DAILY DOSE = ONE TABLET TAKE ONE TABLET BY MOUTH AT BEDTIME EVER Y TWO TO THREE NIGHTS FOR SPASMS AND PAIN, MAXIMUM DAILY DOSE = ONE TABLET SOLD: 07/29/2019 [facility] 12 HR tapentadol 100 MG Extended Release Oral Tablet [Nucynta] Nucynta ER 100 MG [facility] ER 100 MG 07/27/2019 12:00:00 AM EDT active 1 tablet eCW1 ([facility]) 12 HR tapentadol 100 MG Extended Release Oral Tablet [Nucynta] Nucynta ER 100 MG Nucynta ER 100 MG 07/27/2019 12:00:00 AM EDT active 1 tablet eCW1 ([facility]) Acetaminophen 325 MG / Oxycodone Hydroch loride 5 MG Oral Tablet [Percocet] Percocet 5-325 MG Percocet 5-325 MG 07/27/2019 12:00:00 AM EDT active 1 tablet eCW1 ([facility]) Acetaminophen 325 MG / Oxycodone Hydroch loride 5 MG Oral Tablet [Percocet] Percocet 5-325 MG Percocet 5-325 MG 07/27/2019 12:00:00 AM EDT active 1 tablet eCW1 ([facility]) 5-325 mg 06/29/2019 12:00:00 AM EST tablet 120 TAKE ONE TABLET BY MOUTH EVERY 4 TO 6 HOURS NEEDED FOR PAIN , MAXIMUM DAILY DOSE = 4 TABLETS TAKE ONE TABLET BY MOUTH EVERY 4 TO 6 HOURS NEEDED FOR PAIN , MAXIMUM DAILY DOSE = 4 TABLETS SOLD: 06/30/2019 [facility] 100 mg 06/29/2019 12:00:00 AM EST tablet extended release 12 hr 30 TAKE ONE TABLET BY MOUTH EVERY DAY FOR PAIN , MAXIMUM DAILY DOSE = 1 TABLET TAKE ONE TABLET BY MOUTH EVERY DAY FOR PAIN , MAXIMUM DAILY DOSE = 1 TABLET SOLD: 06/30/2019 [facility] 350 mg 06/27/2019 12:00:00 AM EST tablet 12 TAKE ONE TABLET BY MOUTH EVERY 2-3 NIGHTS FOR SPASMS AND PAIN , MAXIMUM DAILY DOSE = 1 TABLET TAKE ONE TABLET BY MOUTH EVERY 2-3 NIGHTS FOR SPASMS AND PAIN , MAXIMUM DAILY DOSE = 1 TABLET SOLD: 06/27/2019 [facility] 12 HR tapentadol 100 MG Extended Release Oral Tablet [Nucynta] Nucynta ER 100 MG Nucynta ER 100 MG 06/24/2019 12:00:00 AM EST active 1 tablet eCW1 ([facility]) Acetaminophen 325 MG / Oxycodone Hydroch loride 5 MG Oral Tablet [Percocet] Percocet 5-325 MG Percocet 5-325 MG 06/24/2019 12:00:00 AM EST active 1 tablet eCW1 ([facility]) 5-325 mg 05/31/2019 12:00:00 AM EST tablet 120 TAKE ONE TABLET BY MOUTH EVERY 4-6 HOURS NEEDED FOR PAIN , MAXIMUM DAILY DOSE = 4 TABLETS TAKE ONE TABLET BY MOUTH EVERY 4-6 HOURS NEEDED FOR PAIN , MAXIMUM DAILY DOSE = 4 TABLETS SOLD: 05/31/2019 [facility] 100 mg 05/31/2019 12:00:00 AM EST tablet extended release 12 hr 30 TAKE ONE TABLET BY MOUTH EVERY DAY FOR PAIN , MAXIMUM DAILY DOSE = 1 TABLET TAKE ONE TABLET BY MOUTH EVERY DAY FOR PAIN , MAXIMUM DAILY DOSE = 1 TABLET SOLD: 05/31/2019 [facility] 350 mg 05/28/2019 12:00:00 AM EST tablet 12 TAKE ONE TABLET BY MOUTH EVERY 2-3 NIGHTS NEEDED FOR SPASMS / PAIN , MAXIMUM DAILY DOSE = 1 TABLET EVERY 2-3 NIGHTS TAKE ONE TABLET BY MOUTH EVERY 2-3 NIGHT S NEEDED FOR SPASMS / PAIN , MAXIMUM DAILY DOSE = 1 TABLET EVERY 2-3 NIGHTS SOLD: 05/29/2019 [facility] 12 HR tapentadol 100 MG Extended Release Oral Tablet [Nucynta] Nucynta ER 100 MG Nucynta ER 100 MG 05/27/2019 12:00:00 AM EST active 1 tablet eCW1 ([facility]) Acetaminophen 325 MG / Oxycodone Hydroch loride 5 MG Oral Tablet [Percocet] Percocet 5-325 MG Percocet 5-325 MG 05/27/2019 12:00:00 AM EST active 1 tablet eCW1 ([facility]) 100 mg 05/02/2019 12:00:00 AM EST tablet extended release 12 hr 30 TAKE ONE BY MOUTH EVERY 24 HOURS FOR PAIN MAXIMUM DAILY DOSE = 1 TABLET TAKE ONE BY MOUTH EVERY 24 HOURS FOR PAIN MAXIMUM DAILY DOSE = 1 TABLET SOLD: 05/02/2019 [facility] 5-325 mg 05/02/2019 12:00:00 AM EST tablet 120 TAKE 1 TABLET BY MOUTH EVERY 4-6 HOURS NEEDED FOR PAIN MAXIMUM DAILY DOSE = 4 TAKE 1 TABLET BY MOUTH EVERY 4-6 HOURS NEEDED FOR PAIN MAXIMUM DAILY DOSE = 4 SOLD: 05/02/2019 [facility] Acetaminophen 325 MG / Oxycodone Hydroch loride 5 MG Oral Tablet [Percocet] Percocet 5-325 MG Percocet 5-325 MG 04/24/2019 12:00:00 AM EST active 1 tablet eCW1 ([facility]) 12 HR tapentadol 100 MG Extended Release Oral Tablet [Nucynta] Nucynta ER 100 MG Nucynta ER 100 MG 04/24/2019 12:00:00 AM EST active 1 tablet eCW1 ([facility]) 350 mg 04/24/2019 12:00:00 AM EST tablet 12 TAKE 1 TABLET BY MOUTH AT BEDTIME EVERY 2-3 NIGHTS NEEDED FOR SPASMS AND PAIN - MAXIMUM DAILY DOSE = 1 TAKE 1 TABLET BY MOUTH AT BEDTIME EVERY 2-3 NIGHTS NEEDED FOR SPASMS AND PAIN - MAXIMUM DAILY DOSE = 1 SOLD: 04/25/2019 [facility] Carisoprodol 350 MG Oral Tablet CARISOPRODOL 04/03/2019 12:00:00 AM EST tablet 12 TAKE 1 TABLET BY MOUTH AT BE DTIME NEEDED FOR SPASMS AND PAIN, MAXIMUM DAILY DOSE = 1 (30 DAY SUPPLY) TAKE 1 TABLET BY MOUTH AT BEDTIME NEE DED FOR SPASMS AND PAIN, MAXIMUM DAILY DOSE = 1 (30 DAY SUPPLY) SOLD: 04/03/2019 [facility] 5-325 mg 04/03/2019 12:00:00 AM EST tablet 120 TAKE ONE TABLET BY MOUTH EVERY 4 TO 6 HOURS NEEDED FOR PAIN, MAXIMUM DAILY DOSE = 4 TAKE ONE TABLET BY MOUTH EVERY 4 TO 6 HOURS NEEDED FOR PAIN, MAXIMUM DAILY DOSE = 4 SOLD: 04/03/2019 [facility] 100 mg 04/03/2019 12:00:00 AM EST tablet extended release 12 hr 30 TAKE ONE TABLET BY MOUTH EVERY DAY FOR PAIN, MAXIMUM DAILY DOSE = 1 TAKE ONE TABLET BY MOUTH EVERY DAY FOR PAIN, MAXIMUM DAILY DOSE = 1 SOLD: 04/03/2019 [facility] 12 HR tapentadol 100 MG Extended Release Oral Tablet [Nucynta] Nucynta ER 100 MG Nucynta ER 100 MG 03/27/2019 12:00:00 AM EST active 1 tablet eCW1 ([facility]) Acetaminophen 325 MG / Oxycodone Hydroch loride 5 MG Oral Tablet [Percocet] Percocet 5-325 MG Percocet 5-325 MG 03/27/2019 12:00:00 AM EST active 1 tablet eCW1 ([facility]) Insurance Providers Payer name Policy type / Coverage type Policy ID Covered republican ID Covered republican's relationship to thomas Policy Thomas Plan Information SELF PAY ONLY [id number] SP [id number] STATE INSURANCE FUND [id number] SP [id number] [facility] UNINSURED FUND [id number] SP [id number] SELF PAY O UNAVAILABLE S UNAVAILA BLE STATE INSURANCE FUND O [id number] S [id number] ANSI-Commercial [id number] ANSI-Commercial [id number] ANSI-Commercial [id number] ANSI-Commercial [id number] ANSI-Commercial [id number] ANSI-Commercial [id number] ANSI-Commercial [id number] ANSI-Commercial [id number] ANSI-Commercial [id number] ANSI-Commercial [id number] ANSI-Commercial [id number] [facility] [id number] SP [id number] ANSI-Commercial [id number] ANSI-Commercial [id number] STATE INSURANCE FUND [id number] SP [id number] STATE INSURANCE FUND O [id number] S [id number] STATE INSURANCE FUND [id number] SP [id number] STATE INSURANCE FUND [id number] SP [id number] STATE INSURANCE FUND [id number] SP [id number] STATE INSURANCE FUND [id number] SP [id number] STATE INSURANCE FUND [id number] SP [id number] MEDICARE [id number] SP [id number] A STATE INSURANCE FUND [id number] SP [id number] STATE INSURANCE FUND [id number] SP [id number] [employer] P [id number] S [id number] MEDICARE P [id number] S [id number] A SELF PAY UNAVAILABLE SP UNAVAILA BLE STATE INSURANCE FUND P [id number] S [id number] Surgeries/Procedures Procedure Description Date Indications Data Source(s) Apply Splint Short Arm Static 12/08/2019 12:00:00 AM E DT [facility] ([facility] ) Repair Rupture/Lacerated Biceps Or Triceps Tendon Distal 11/26/2019 12:00:00 AM EDT [facility] ([facility] ) ESTABILISHED PATIENT [facility] CHARGE 020 12:00:00 AM EDT eCW1 ([facility]) Results ID Date Data Source [id number] 11/25/2019 11:50:00 AM EDT [facility] ([facility] ) Name Value Range Interpretation Code Description Data Jeanette rce(s) Supporting Document(s) Laboratory test finding (navigational concept) Laboratory test result [facility] ([facility] ) A false negative result may occur if a s pecimen is improperly collected, transported or handled. False negative results may also occur if inadequate numbers of organisms are present in the specimen. As with any molecular test, mutations within the target regions of Xpert Xpress SARS-CoV-2 could affect primer and/or probe binding resulting in failure to detect the presence of virus. This test cannot rule out diseases caused by other bacterial or viral pathogens. DISCLAIMER: Testing was performed using the [employer] SARS-CoV-2 test. This test was developed and its performance characteristics determined by [employer]. This test has not been FDA cleared or approved. This test has been authorized by FDA under an Emergency Use Authorization (EUA). This test is only authorized for the duration of time the declaration that circumstances exist justifying the authorization of the emergency use of in vitro diagnostic tests for detection of SARS-CoV-2 virus and/or diagnosis of COVID-19 infection under section 564(b)(1) of the Act, 21 U.S.C. 360bbb-3(b)(1), unless the authorization is terminated or revoked sooner. ID Date Data Source [id number] 11/24/2019 12:00:00 AM EDT [facility] Ant CALZADA Patient Name: MARIPOSA [id number] [facility] Date of : 1960[place] [address] Date of Exam: 11/24/2019#: Fax: [phone] EXAM: MRI ELBOW RIGHT W/O CONTRASTCLINICAL INFORMATION: Followup olecranon process avulsion fracture.3T multiplanar MRI imaging of the right elbow was obtained using varioussequences.The olecranon process avulsion fracture seen by plain radiography 11/21/2019is again identified. The avulsed osseous fragment is approximately 3.8 cmproximal to its origin. The triceps tendon is seen with T2 hypersignalwithin it with tendinous redundancy, however, the tendinous insertion onthe avulsed fragment is at least in part, intact. There is T2 hypersignalseen in all of the dorsal soft tissues that were imaged on this elbow exam. There is no elbow joint effusion. The common extensor and common flexortendons are intact. The medial and lateral ulnar collateral ligaments areintact. The radial collateral ligament is intact. The chondral surfacesare smooth.IMPRESSION:1. Olecranon process avulsion fracture as described above with evidence tosuggest at least a partially intact triceps tendon but with significantredundancy and edema in the imaged portion. There is significant edema inthe soft tissues.2. Other findings as described above.Accredited by the [employer] in MR.DARON Monteiro/Bushra you for referring BEBE NERI to our office.Electronically Signed - BUCKY HAMLIN DO 11/24/19 11:58 Name Value Range Interpretation Code Description Data Jeanette rce(s) Supporting Document(s) ID Date Data Source [id number] 11/21/2019 03:52:00 PM EDT [facility] ([facility]) Name Value Range Interpretation Code Description Data Jeanette rce(s) Supporting Document(s) Sars coronavirus 2 Rna [Presence] in Res piratory specimen by Jennifer with probe detection Laboratory test result [facility] ([facility]) Procedure Social History Code Duration Value Status Description Data Source(s ) Smoking 02/05/2020 12:00:00 AM EDT Former Smoker completed Former Smoker eCW1 ([facility]) Smoking 02/05/2020 12:00:00 AM EDT Former Smoker completed Former Smoker eCW1 ([facility]) Smoking 02/05/2020 12:00:00 AM EDT Former Smoker completed Former Smoker eCW1 ([facility]) Smoking 02/05/2020 12:00:00 AM EDT Former Smoker completed Former Smoker eCW1 ([facility]) Smoking 02/05/2020 12:00:00 AM EDT Former Smoker completed Former Smoker eCW1 ([facility]) Smoking 07/31/2019 12:00:00 AM EDT Former Smoker completed Former Smoker eCW1 ([facility]) Smoking 07/31/2019 12:00:00 AM EDT Former Smoker completed Former Smoker eCW1 ([facility]) Vital Signs ID Date Data Source UNK Name Value Range Interpretation Code Description Data Source(s) Diastolic blood pressure 76 mm[Hg] 76 mm[Hg] eCW1 ([facility]) Systolic blood pressure 133 mm[Hg] 133 mm[Hg] e CW1 ([facility]) Respiratory rate 16 /min 16 /min eCW1 ([facility]) Heart rate 75 /min 75 /min eCW1 ([facility]) Body mass index (BMI) [Ratio] 31.85 kg/m2 31.85 kg/m2 eCW1 ([facility]) Body height 70 [in_i] 70 [in_i] eCW1 ([facility]) Body weight 222 [lb_av] 222 [lb_av] eCW1 ([facility]) Body mass index (BMI) [Ratio] 31.0 kg/m2 31.0 k g/m2 [facility] ([facility]) Body weight 217.81 [lb_av] 217.81 [lb_av] MEDEN T ([facility] ) Diastolic blood pressure 75 mm[Hg] 75 mm[Hg] eCW1 ([facility]) Systolic blood pressure 128 mm[Hg] 128 mm[Hg] e CW1 ([facility]) Body temperature 96.9 [degF] 96.9 [degF] eCW1 ( [facility]) Respiratory rate 18 /min 18 /min eCW1 ([facility]) Heart rate 72 /min 72 /min eCW1 ([facility]) Body mass index (BMI) [Ratio] 31.88 kg/m2 31.88 kg/m2 eCW1 ([facility]) Body height 70 [in_us] 70 [in_us] eCW1 ([facility]) Body weight Measured 222.2 [lb_av] 222.2 [lb_av ] eCW1 ([facility]) Diastolic blood pressure 79 mm[Hg] 79 mm[Hg] eCW1 ([facility]) Systolic blood pressure 140 mm[Hg] 140 mm[Hg] e CW1 ([facility]) Body temperature 97.5 [degF] 97.5 [degF] eCW1 ( [facility]) Respiratory rate 18 /min 18 /min eCW1 ([facility]) Heart rate 80 /min 80 /min eCW1 ([facility]) Body mass index (BMI) [Ratio] 32.40 kg/m2 32.40 kg/m2 eCW1 ([facility]) Body height 70 [in_us] 70 [in_us] eCW1 ([facility]) Body weight Measured 225.8 [lb_av] 225.8 [lb_av ] eCW1 ([facility]) Patient Treatment Plan of Care Planned Activity Planned Date Details Description Data Source (s) Acetaminophen 325 MG / Oxycodone Hydrochloride 5 MG Or al Tablet [Percocet] 05/13/2020 12:00:00 AM EST eCW1 ([facility]) 12 HR tapentadol 100 MG Extended Release Oral Tablet [ Nucynta] 05/13/2020 12:00:00 AM EST eCW1 ([facility]) Acetaminophen 325 MG / Oxycodone Hydrochloride 5 MG Or al Tablet [Percocet] 04/13/2020 12:00:00 AM EST eCW1 ([facility]) 12 HR tapentadol 100 MG Extended Release Oral Tablet [ Nucynta] 04/13/2020 12:00:00 AM EST eCW1 ([facility]) Acetaminophen 325 MG / Oxycodone Hydrochloride 5 MG Or al Tablet [Percocet] 03/11/2020 12:00:00 AM EST eCW1 ([facility]) 12 HR tapentadol 100 MG Extended Release Oral Tablet [ Nucynta] 03/11/2020 12:00:00 AM EST eCW1 ([facility]) 12 HR tapentadol 100 MG Extended Release Oral Tablet [ Nucynta] 02/05/2020 12:00:00 AM EDT eCW1 ([facility]) Acetaminophen 325 MG / Oxycodone Hydrochloride 5 MG Or al Tablet [Percocet] 02/05/2020 12:00:00 AM EDT eCW1 ([facility]) 12 HR tapentadol 100 MG Extended Release Oral Tablet [ Nucynta] 02/05/2020 12:00:00 AM EDT eCW1 ([facility]) Acetaminophen 325 MG / Oxycodone Hydrochloride 5 MG Or al Tablet [Percocet] 02/05/2020 12:00:00 AM EDT eCW1 ([facility]) 12 HR tapentadol 100 MG Extended Release Oral Tablet [ Nucynta] 11/18/2019 12:00:00 AM EDT eCW1 ([facility]) Acetaminophen 325 MG / Oxycodone Hydrochloride 5 MG Or al Tablet [Percocet] 11/18/2019 12:00:00 AM EDT eCW1 ([facility]) 12 HR tapentadol 100 MG Extended Release Oral Tablet [ Nucynta] 10/20/2019 12:00:00 AM EDT eCW1 ([facility]) Acetaminophen 325 MG / Oxycodone Hydrochloride 5 MG Or al Tablet [Percocet] 10/20/2019 12:00:00 AM EDT eCW1 ([facility]) Acetaminophen 325 MG / Oxycodone Hydrochloride 5 MG Or al Tablet [Percocet] 09/24/2019 12:00:00 AM EDT eCW1 ([facility]) 12 HR tapentadol 100 MG Extended Release Oral Tablet [ Nucynta] 09/24/2019 12:00:00 AM EDT eCW1 ([facility]) 12 HR tapentadol 100 MG Extended Release Oral Tablet [ Nucynta] 08/25/2019 12:00:00 AM EDT eCW1 ([facility]) Acetaminophen 325 MG / Oxycodone Hydrochloride 5 MG Or al Tablet [Percocet] 08/25/2019 12:00:00 AM EDT eCW1 ([facility]) 12 HR tapentadol 100 MG Extended Release Oral Tablet [ Nucynta] 07/27/2019 12:00:00 AM EDT eCW1 ([facility]) Acetaminophen 325 MG / Oxycodone Hydrochloride 5 MG Or al Tablet [Percocet] 07/27/2019 12:00:00 AM EDT eCW1 ([facility]) 12 HR tapentadol 100 MG Extended Release Oral Tablet [ Nucynta] 06/24/2019 12:00:00 AM EST eCW1 ([facility]) Acetaminophen 325 MG / Oxycodone Hydrochloride 5 MG Or al Tablet [Percocet] 06/24/2019 12:00:00 AM EST eCW1 ([facility]) 12 HR tapentadol 100 MG Extended Release Oral Tablet [ Nucynta] 05/27/2019 12:00:00 AM EST eCW1 ([facility]) Acetaminophen 325 MG / Oxycodone Hydrochloride 5 MG Or al Tablet [Percocet] 05/27/2019 12:00:00 AM EST eCW1 ([facility]) Acetaminophen 325 MG / Oxycodone Hydrochloride 5 MG Or al Tablet [Percocet] 04/24/2019 12:00:00 AM EST eCW1 ([facility]) 12 HR tapentadol 100 MG Extended Release Oral Tablet [ Nucynta] 04/24/2019 12:00:00 AM EST eCW1 ([facility]) 12 HR tapentadol 100 MG Extended Release Oral Tablet [ Nucynta] 03/27/2019 12:00:00 AM EST eCW1 ([facility]) Acetaminophen 325 MG / Oxycodone Hydrochloride 5 MG Or al Tablet [Percocet] 03/27/2019 12:00:00 AM EST eCW1 ([facility])
--- OUTSIDE RECORDS SUMMARY | 2020-05-21 13:12 | CCD ---
Author Author [facility] Organization [facility] Address Unknown Phone Unavailable Care Team Providers Care Synoptic Meteorologist Name Role Phone Re Clay Unavailable PROBLEMS Type Condition ICD9-CM Code [id number] Code Onset Dates Condition S tatus SNOMED Code Notes Problem Postlaminectomy syndrome, not elsewhere classified M96.1 Active 93222266 Problem Lumbar facet arthropathy M46.96 Active 0389687 08 Problem Chronic prescription opiate use Z79.891 Active 646019434 Problem Spondylosis without myelopathy or radiculopathy, lumbar region M47.816 Active 64142923 Problem Spondylosis without myelopathy or radiculopathy, lumbosacral region M47.817 Active 53970958 Problem Low back pain M54.5 Active 885010595 Problem Osteoarthritis of knee, unspecified M17.9 Acti ve 661934807 Problem Osteoarthritis of left knee, unspecified osteoarthritis ty pe M17.12 Active 170526276240201 Problem Myalgia M79.1 Active 82538594 Problem Myalgia, other site M79.18 Active 62575988 Problem Pain in left knee M25.562 Active 44303585 Problem 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 Active 16003037 Problem Other chronic pain G89.29 Active 13896007 Problem Lumbar radiculopathy M54.16 Active 644962288 Problem Lumbar post-laminectomy syndrome M96.1 Active 675716408 Problem Lumbosacral spinal stenosis M48.07 Active 4240 95203 Problem Spondylosis of lumbar region without myelopathy or radiculopathy M47.816 Active 454069147 Problem Spondylosis of lumbosacral region without myelop athy or radiculopathy M47.817 Active [id number] ALLERGIES No Known Allergies ENCOUNTERS from 1960 to 2020-05-14 Encounter Location Date Provider Diagnosis [facility] [address] [place] [phone] May, Re Clay Intervertebral disc disorder with radicu lopathy of lumbosacral region M51.17 IMMUNIZATIONS No Information SOCIAL HISTORY Tobacco Use: Social History Observation Description Date Details (start date - stop date) Former Smoker Sex Assigned At : Social History Observation Description Sex Assigned At Unknown Language: Question Answer Notes Languages spoken: Ukrainian Caodaism: Question Answer Notes Caodaism 33 None No muslim beliefs that would impact health care. Alcohol Screening: Question Answer Notes Did you have a drink containing alcohol in the past year? No Points 0 Interpretation Negative Tobacco Use: Question Answer Notes Are you a: former smoker REASON FOR REFERRAL No Information VITAL SIGNS No information MEDICATIONS Medication SIG (Take, Route, Frequency, Duration) Notes Start Da te End Date Status Nucynta ER 100 MG 1 tablet Orally for pain every 24 hrs MDD1 for 30 days May, Active Percocet 5-325 MG 1 tablet Orally every 4 -6 hours prn pain MDD=4 for 30 day(s) May, Active Celebrex 200 MG 1 capsule Orally Once a day as needed for pain f or 30 day(s) Not-Taking Soma 350 MG 1 tab Orally daily at bedtim e as needed EVERY 2-3 NIGHTS for spasms and pain MDD=1 for 30 days Activ e PROCEDURES No Information RESULTS No Results REASON FOR VISIT refill Percocet, Soma, Nucynta MEDICAL (GENERAL) HISTORY Type Description Date Medical History gerd Medical History chronic back pain Surgical History low back surgury 1997 Surgical History L3, L4, L5 back surgury 2000 Surgical History L4-L5 surgery 2012 Hospitalization History surgeries Goals Section No Information Health Concerns No Information MEDICAL EQUIPMENT No Information MENTAL STATUS No Information FUNCTIONAL STATUS No Information ASSESSMENTS Encounter Date Diagnosis Assessment Notes Treatment Notes Treatm ent Clinical Notes May, Intervertebral disc disorder with radiculopathy of lumbosacral region (ICD-10 - M51.17) PLAN OF TREATMENT Medication Medication Name Sig Start Date Stop Date Percocet 5-325 MG 1 tablet Orally every 4 -6 hours prn pain MDD=4 for 30 day(s) May, Nucynta ER 100 MG 1 tablet Orally for pain every 24 hrs D1 for 30 days May, Soma 350 MG 1 tab Orally daily at bedtim e as needed EVERY 2-3 NIGHTS for spasms and pain MDD=1 for 30 days Next Appt Details Provider Name:Favio Thornton, 2020-06-01 01:00:00 PM, [address] [place], [address], Insurance Providers Payer Name Payer Address Payer Phone Insured Name Patient Relati onship to Insured Coverage Start Date Coverage End Date [facility], [facility] [employer] [address] [id number] [phone] BEBE NERI BUCKY self 2008
--- OUTSIDE RECORDS SUMMARY | 2020-05-21 13:45 | CCD ---
Author Author [facility] Organization [facility] Address Unknown Phone Unavailable Care Team Providers Care Cast Iron Dipper Name Role Phone NRI, 292 Unavailable Unavailable [...] is protected by Article 27-F of the [facility] Public Health law. If you continue you may have access to information: Regarding HIV / AIDS; Provided by facilities licensed or operated by the [facility] Office of Mental Health; or Provided by the [facility] Office for People With Developmental Disabilities. If such information is present, then the following [facility] mandated warning applies: This information has been [...] law may result in a fine or mcc sentence or both. A general authorization for the release of medical or other information is NOT sufficient authorization for further disc losure. Allergies and Adverse Reactions Type Description Substance Reaction Status Data Source(s ) Adverse Reaction Adverse Reaction Trazodone ME DENT ([facility] ) Substance/Environmental Agent Allergy Substance/Environmenta l Agent Allergy pregabalin MEDENT ([facility] ) Drug Allergy Drug Allergy NKDA MEDENT ([facility] ) Encounters Encounter Providers Location Date Indications Data Source(s ) Unknown [address] [facility] [address] 05/12/2020 12:00:00 AM EST eCW1 ([facility]) Unknown [address] [facility] [place] [address] 04/13/2020 12:00:00 AM EST eCW1 ([facility]) Unknown [address] [facility] [place] [address] 03/11/2020 12:00:00 AM EST eCW1 ([facility]) Unknown [address] [facility] [place] [address] 02/19/2020 12:00:00 AM EDT eCW1 ([facility]) Outpatient [address] [facility] [id number] 02/05/2020 12:00:00 AM EDT eCW1 [facility]) Outpatient Attender: Osman Kellogg MD Physical Therapy 11/25/2019 1 0:30:00 AM EDT MEDENT ([facility]) OFFICE OUTPATIENT NEW 30 MINUTES Attender: ANT CALZADA Physic al Therapy 11/23/2019 02:00:00 PM EDT MEDENT ([facility]) Unknown [address] [facility] [id number] 11/17/2019 12:00:00 AM EDT eCW1 ([facility]) Unknown [address] [facility] [id number] 10/20/2019 12:00:00 AM EDT eCW1 ([facility]) [facility] Pain Center [address] [place] [phone] 10/02/2019 12:00:00 AM EDT eCW1 ([facility]) Recurring Patient Referrer: Bob Dowd MD 09/25/2019 01:55:30 PM EDT [facility] [address] [place] [phone] 09/23/2019 12:00:00 AM EDT eCW1 ([facility]) [facility] Urology [address] [facility] [id number] 08/24/2019 12:00:00 AM EDT eCW1 ([facility]) [facility] Pain Center [address] [place] [phone] 07/31/2019 12:00:00 AM EDT eCW1 ([facility]) [facility] Pain Center [address] [place] [phone] 07/27/2019 12:00:00 AM EDT eCW1 ([facility]) [facility] Pain Center [address] [place] [phone] 06/23/2019 12:00:00 AM EST eCW1 ([facility]) [facility] Pain Center [address] [place] [phone] 05/25/2019 12:00:00 AM EST eCW1 ([facility]) [facility] Pain Center [address] [place] [phone] 05/15/2019 12:00:00 AM EST eCW1 ([facility]) Outpatient Referrer: 292 NRI 05/08/2019 05:45:00 AM EST [facility] Pain Center [address] [place] [phone] 04/24/2019 12:00:00 AM EST eCW1 ([facility]) [facility] Pain Center [address] [place] [phone] 04/16/2019 12:00:00 AM EST eCW1 ([facility]) [address] [phone] 04/08/2019 12:00:00 AM EST eCW1 ([facility]) [facility] Pain Center [address] [place] [phone] 03/26/2019 12:00:00 AM EST eCW1 ([facility]) Immunizations Vaccine Date Status Description Data Source(s) [...] {t ablet} active Percocet 5-325 MG eCW1 ([facility]) 12 HR tapentadol 100 MG Extended Release Oral Tablet [Nucynta] Nucynta ER 100 MG Nucynta ER 100 MG 05/13/2020 12:00:00 AM EST 1.0 {tablet} active Nucynta ER 100 MG eCW1 ([facility]) Cephalexin 500 MG Oral Capsule CEPHALEXIN 05/12/2020 [...] {tablet} active Nucynta ER 100 MG eCW1 ([facility]) Acetaminophen 325 MG / Oxycodone Hydroch loride 5 MG Oral Tablet [Percocet] Percocet 5-325 MG Percocet 5-325 MG 04/13/2020 12:00:00 AM EST 1.0 {t ablet} active Percocet 5-325 MG eCW1 ([facility]) 350 mg 03/19/2020 12:00:00 AM EST tablet [...] {t ablet} active Percocet 5-325 MG eCW1 ([facility]) 12 HR tapentadol 100 MG Extended Release Oral Tablet [Nucynta] Nucynta ER 100 MG Nucynta ER 100 MG 03/11/2020 12:00:00 AM EST 1.0 {tablet} active Nucynta ER 100 MG eCW1 ([facility]) 350 mg 02/19/2020 12:00:00 AM EDT tablet [...] {t ablet} active Percocet 5-325 MG eCW1 ([facility]) 12 HR tapentadol 100 MG Extended Release Oral Tablet [Nucynta] Nucynta ER 100 MG Nucynta ER 100 MG 02/05/2020 12:00:00 AM EDT 1.0 {tablet} active Nucynta ER 100 MG eCW1 ([facility]) Acetaminophen 325 MG / Oxycodone Hydroch loride 5 MG Oral Tablet [Percocet] Percocet 5-325 MG Percocet 5-325 MG 02/05/2020 12:00:00 AM EDT 1.0 {t ablet} active Percocet 5-325 MG eCW1 ([facility]) 12 HR tapentadol 100 MG Extended Release Oral Tablet [Nucynta] Nucynta ER 100 MG Nucynta ER 100 MG 02/05/2020 12:00:00 AM EDT 1.0 {tablet} active Nucynta ER 100 MG eCW1 ([facility]) 350 mg 01/20/2020 12:00:00 AM EDT tablet [...] DAILY DOSE = ONE TABLET SOLD: 12/22/2019 [facility] tramadol hydrochloride 50 MG Oral Tablet [...] DAILY DOSE = 1 TABLET SOLD: 11/22/2019 [facility] 5-325 mg 11/22/2019 12:00:00 AM EDT [...] {t ablet} active Percocet 5-325 MG eCW1 ([facility]) 12 HR tapentadol 100 MG Extended Release Oral Tablet [Nucynta] Nucynta ER 100 MG Nucynta ER 100 MG 11/18/2019 12:00:00 AM EDT 1.0 {tablet} active Nucynta ER 100 MG eCW1 ([facility]) 350 mg 10/24/2019 12:00:00 AM EDT tablet [...] {t ablet} active Percocet 5-325 MG eCW1 ([facility]) 12 HR tapentadol 100 MG Extended Release Oral Tablet [Nucynta] Nucynta ER 100 MG Nucynta ER 100 MG 10/20/2019 12:00:00 AM EDT 1.0 {tablet} active Nucynta ER 100 MG eCW1 ([facility]) 100 mg 09/25/2019 12:00:00 AM EDT tablet [...] 12:00:00 AM EDT active 1 tablet eCW1 ([facility]) 350 mg 09/24/2019 12:00:00 AM EDT tablet [...] 12:00:00 AM EDT active 1 tablet eCW1 ([facility]) 5-325 mg 08/27/2019 12:00:00 AM EDT tablet [...] DAILY DOSE = ONE TABLET SOLD: 08/27/2019 [facility] 350 mg 08/26/2019 12:00:00 AM [...] 12:00:00 AM EDT active 1 tablet eCW1 ([facility]) Acetaminophen 325 MG / Oxycodone Hydroch loride 5 MG Oral Tablet [Percocet] Percocet 5-325 MG Percocet 5-325 MG 08/25/2019 12:00:00 AM EDT active 1 tablet eCW1 ([facility]) 5-325 mg 07/29/2019 12:00:00 AM EDT tablet [...] 12:00:00 AM EDT active 1 tablet eCW1 ([facility]) 12 HR tapentadol 100 MG Extended Release Oral Tablet [Nucynta] Nucynta ER 100 MG Nucynta ER 100 MG 07/27/2019 12:00:00 AM EDT active 1 tablet eCW1 ([facility]) Acetaminophen 325 MG / Oxycodone Hydroch loride 5 MG Oral Tablet [Percocet] Percocet 5-325 MG Percocet 5-325 MG 07/27/2019 12:00:00 AM EDT active 1 tablet eCW1 ([facility]) Acetaminophen 325 MG / Oxycodone Hydroch loride 5 MG Oral Tablet [Percocet] Percocet 5-325 MG Percocet 5-325 MG 07/27/2019 12:00:00 AM EDT active 1 tablet eCW1 ([facility]) 5-325 mg 06/29/2019 12:00:00 AM EST tablet [...] 12:00:00 AM EST active 1 tablet eCW1 ([facility]) Acetaminophen 325 MG / Oxycodone Hydroch loride 5 MG Oral Tablet [Percocet] Percocet 5-325 MG Percocet 5-325 MG 06/24/2019 12:00:00 AM EST active 1 tablet eCW1 ([facility]) 5-325 mg 05/31/2019 12:00:00 AM EST tablet [...] 1 TABLET EVERY 2-3 NIGHTS SOLD: 05/29/2019 [facility] 12 HR tapentadol 100 MG Extended Release Oral Tablet [Nucynta] Nucynta ER 100 MG Nucynta ER 100 MG 05/27/2019 12:00:00 AM EST active 1 tablet eCW1 ([facility]) Acetaminophen 325 MG / Oxycodone Hydroch loride 5 MG Oral Tablet [Percocet] Percocet 5-325 MG Percocet 5-325 MG 05/27/2019 12:00:00 AM EST active 1 tablet eCW1 ([facility]) 100 mg 05/02/2019 12:00:00 AM EST tablet extended release 12 hr 30 TAKE ONE BY MOUTH EVERY 24 HOURS FOR PAIN MAXIMUM DAILY DOSE = 1 TABLET TAKE ONE BY MOUTH EVERY 24 HOURS FOR PAIN MAXIMUM DAILY DOSE = 1 TABLET SOLD: 05/02/2019 [facility] 5-325 mg 05/02/2019 12:00:00 AM EST tablet 120 TAKE 1 TABLET BY MOUTH EVERY 4-6 HOURS NEEDED FOR PAIN MAXIMUM DAILY DOSE = 4 TAKE 1 TABLET BY MOUTH EVERY 4-6 HOURS NEEDED FOR PAIN MAXIMUM DAILY DOSE = 4 SOLD: 05/02/2019 [facility] Acetaminophen 325 MG / Oxycodone Hydroch loride 5 MG Oral Tablet [Percocet] Percocet 5-325 MG Percocet 5-325 MG 04/24/2019 12:00:00 AM EST active 1 tablet eCW1 ([facility]) 12 HR tapentadol 100 MG Extended Release Oral Tablet [Nucynta] Nucynta ER 100 MG Nucynta ER 100 MG 04/24/2019 12:00:00 AM EST active 1 tablet eCW1 ([facility]) 350 mg 04/24/2019 12:00:00 AM EST tablet 12 TAKE 1 TABLET BY MOUTH AT BEDTIME EVERY 2-3 NIGHTS NEEDED FOR SPASMS AND PAIN - MAXIMUM DAILY DOSE = 1 TAKE 1 TABLET BY MOUTH AT BEDTIME EVERY 2-3 NIGHTS NEEDED FOR SPASMS AND PAIN - MAXIMUM DAILY DOSE = 1 SOLD: 04/25/2019 [facility] Carisoprodol 350 MG Oral Tablet CARISOPRODOL 04/03/2019 [...] 12:00:00 AM EST active 1 tablet eCW1 ([facility]) Acetaminophen 325 MG / Oxycodone Hydroch loride 5 MG Oral Tablet [Percocet] Percocet 5-325 MG Percocet 5-325 MG 03/27/2019 12:00:00 AM EST active 1 tablet eCW1 ([facility]) Insurance Providers Payer name Policy type / Coverage type Policy ID Covered democrat ID Covered democrat's relationship to thomas Policy Thomas Plan Information SELF PAY ONLY [id number] SP [id number] [employer] INSURANCE FUND [id number] SP [id number] UNINSURED FUND [id number] SP [id number] SELF PAY O UNAVAILABLE S UNAVAILA BLE STATE INSURANCE FUND O [id number] S [id number] ANSI-Commercial [id number] ANSI-Commercial [id number] ANSI-Commercial [id number] ANSI-Commercial [id number] ANSI-Commercial [id number] ANSI-Commercial [id number] ANSI-Commercial [id number] ANSI-Commercial [id number] ANSI-Commercial [id number] ANSI-Commercial [id number] ANSI-Commercial [id number] [facility] [id number] SP [id number] ANSI-Commercial [id number] ANSI-Commercial [id number] STATE INSURANCE FUND [id number] SP [id number] STATE INSURANCE FUND O [id number] S [id number] STATE INSURANCE FUND [id number] SP [id number] STATE INSURANCE FUND [id number] SP [id number] STATE INSURANCE FUND [id number] SP [id number] STATE INSURANCE FUND [id number] SP [id number] STATE INSURANCE FUND [id number] SP [id number] MEDICARE [id number] SP [id number] A STATE INSURANCE FUND [id number] SP [id number] STATE INSURANCE FUND [id number] SP [id number] [employer] P [id number] S [id number] MEDICARE P [id number] S [id number] A SELF PAY UNAVAILABLE SP UNAVAILA BLE STATE INSURANCE FUND P [id number] S [id number] Surgeries/Procedures Procedure Description Date Indications Data Source(s) Apply Splint Short Arm Static 12/08/2019 12:00:00 AM E DT MEDENT ([facility] ) Repair Rupture/Lacerated Biceps Or Triceps Tendon Distal 11/26/2019 12:00:00 AM EDT MEDENT ([facility] ) ESTABILISHED PATIENT [facility] CHARGE 020 12:00:00 AM EDT eCW1 ([facility]) Results ID Date Data Source [id number] 11/25/2019 11:50:00 AM EDT MEDENT ([facility] ) Name Value Range Interpretation Code Description Data Jeanette rce(s) Supporting Document(s) Laboratory test finding (navigational concept) Laboratory test result MEDENT ([facility] ) A false negative [...] pathogens. DISCLAIMER: Testing was performed using the [employer] SARS-CoV-2 test. This test was developed and its performance characteristics determined by [employer]. This test has not been FDA cleared [...] or revoked sooner. ID Date Data Source [id number] 11/24/2019 12:00:00 AM EDT [facility] Ant CALZADA Patient Name: MARIPOSA [id number] [facility] Date of : 1960[place] [address] Date of Exam: 11/24/2019#: Fax: [phone] EXAM: [...] Other findings as described above.Accredited by the [employer] in MR.DARON Monteiro/Bushra you for referring BEBE NERI to our office.Electronically Signed - BUCKY HAMLIN DO 11/24/19 11:58 Name Value Range Interpretation Code Description Data Jeanette rce(s) Supporting Document(s) ID Date Data Source [id number] 11/21/2019 03:52:00 PM EDT MEDENT ([facility]) Name Value Range Interpretation Code Description Data Jeanette rce(s) Supporting Document(s) Sars coronavirus 2 Rna [Presence] in Res piratory specimen by Jennifer with probe detection Laboratory test result [facility] ([facility]) Procedure Social History Code Duration Value Status Description Data Source(s ) Smoking 02/05/2020 12:00:00 AM EDT Former Smoker completed Former Smoker eCW1 ([facility]) Smoking 02/05/2020 12:00:00 AM EDT Former Smoker completed Former Smoker eCW1 ([facility]) Smoking 02/05/2020 12:00:00 AM EDT Former Smoker completed Former Smoker eCW1 ([facility]) Smoking 02/05/2020 12:00:00 AM EDT Former Smoker completed Former Smoker eCW1 ([facility]) Smoking 02/05/2020 12:00:00 AM EDT Former Smoker completed Former Smoker eCW1 ([facility]) Smoking 07/31/2019 12:00:00 AM EDT Former Smoker completed Former Smoker eCW1 ([facility]) Smoking 07/31/2019 12:00:00 AM EDT Former Smoker completed Former Smoker eCW1 ([facility]) Vital Signs ID Date Data Source [id number] Name Value Range Interpretation Code Description Data Source(s) Diastolic blood pressure 76 mm[Hg] 76 mm[Hg] eCW1 ([facility]) Systolic blood pressure 133 mm[Hg] 133 mm[Hg] e CW1 ([facility]) Respiratory rate 16 /min 16 /min eCW1 ([facility]) Heart rate 75 /min 75 /min eCW1 ([facility]) Body mass index (BMI) [Ratio] 31.85 kg/m2 31.85 kg/m2 eCW1 ([facility]) Body height 70 [in_i] 70 [in_i] eCW1 [facility] Body weight 222 [lb_av] 222 [lb_av] eCW1 ([facility]) Body mass index (BMI) [Ratio] 31.0 kg/m2 31.0 k g/m2 MEDENT ([facility]) Body weight 217.81 [lb_av] 217.81 [lb_av] MEDEN T ([facility] ) Diastolic blood pressure 75 mm[Hg] 75 mm[Hg] eCW1 ([facility]) Systolic blood pressure 128 mm[Hg] 128 mm[Hg] e CW1 ([facility]) Body temperature 96.9 [degF] 96.9 [degF] eCW1 ( [facility]) Respiratory rate 18 /min 18 /min eCW1 ([facility]) Heart rate 72 /min 72 /min eCW1 ([facility]) Body mass index (BMI) [Ratio] 31.88 kg/m2 31.88 kg/m2 eCW1 ([facility]) Body height 70 [in_us] 70 [in_us] eCW1 ([facility] Body weight Measured 222.2 [lb_av] 222.2 [lb_av ] eCW1 ([facility]) Diastolic blood pressure 79 mm[Hg] 79 mm[Hg] eCW1 ([facility]) Systolic blood pressure 140 mm[Hg] 140 mm[Hg] e CW1 ([facility]) Body temperature 97.5 [degF] 97.5 [degF] eCW1 ( [facility]) Respiratory rate 18 /min 18 /min eCW1 ([facility]) Heart rate 80 /min 80 /min eCW1 ([facility]) Body mass index (BMI) [Ratio] 32.40 kg/m2 32.40 kg/m2 eCW1 ([facility]) Body height 70 [in_us] 70 [in_us] eCW1 ([facility]) Body weight Measured 225.8 [lb_av] 225.8 [lb_av ] eCW1 ([facility]) Patient Treatment Plan of Care Planned Activity Planned Date Details Description Data Source (s) Acetaminophen 325 MG / Oxycodone Hydrochloride 5 MG Or al Tablet [Percocet] 05/13/2020 12:00:00 AM EST eCW1 ([facility] 12 HR tapentadol 100 MG Extended Release Oral Tablet [ Nucynta] 05/13/2020 12:00:00 AM EST eCW1 ([facility]) Acetaminophen 325 MG / Oxycodone Hydrochloride 5 MG Or al Tablet [Percocet] 04/13/2020 12:00:00 AM EST eCW1 ([facility]) 12 HR tapentadol 100 MG Extended Release Oral Tablet [ Nucynta] 04/13/2020 12:00:00 AM EST eCW1 ([facility]) Acetaminophen 325 MG / Oxycodone Hydrochloride 5 MG Or al Tablet [Percocet] 03/11/2020 12:00:00 AM EST eCW1 ([facility] 12 HR tapentadol 100 MG Extended Release Oral Tablet [ Nucynta] 03/11/2020 12:00:00 AM EST eCW1 ([facility]) 12 HR tapentadol 100 MG Extended Release Oral Tablet [ Nucynta] 02/05/2020 12:00:00 AM EDT eCW1 ([facility]) Acetaminophen 325 MG / Oxycodone Hydrochloride 5 MG Or al Tablet [Percocet] 02/05/2020 12:00:00 AM EDT eCW1 ([facility]) 12 HR tapentadol 100 MG Extended Release Oral Tablet [ Nucynta] 02/05/2020 12:00:00 AM EDT eCW1 ([facility]) Acetaminophen 325 MG / Oxycodone Hydrochloride 5 MG Or al Tablet [Percocet] 02/05/2020 12:00:00 AM EDT eCW1 ([facility]) 12 HR tapentadol 100 MG Extended Release Oral Tablet [ Nucynta] 11/18/2019 12:00:00 AM EDT eCW1 ([facility]) Acetaminophen 325 MG / Oxycodone Hydrochloride 5 MG Or al Tablet [Percocet] 11/18/2019 12:00:00 AM EDT eCW1 ([facility] 12 HR tapentadol 100 MG Extended Release Oral Tablet [ Nucynta] 10/20/2019 12:00:00 AM EDT eCW1 ([facility]) Acetaminophen 325 MG / Oxycodone Hydrochloride 5 MG Or al Tablet [Percocet] 10/20/2019 12:00:00 AM EDT eCW1 ([facility]) Acetaminophen 325 MG / Oxycodone Hydrochloride 5 MG Or al Tablet [Percocet] 09/24/2019 12:00:00 AM EDT eCW1 ([facility]) 12 HR tapentadol 100 MG Extended Release Oral Tablet [ Nucynta] 09/24/2019 12:00:00 AM EDT eCW1 ([facility]) 12 HR tapentadol 100 MG Extended Release Oral Tablet [ Nucynta] 08/25/2019 12:00:00 AM EDT eCW1 ([facility]) Acetaminophen 325 MG / Oxycodone Hydrochloride 5 MG Or al Tablet [Percocet] 08/25/2019 12:00:00 AM EDT eCW1 ([facility]) 12 HR tapentadol 100 MG Extended Release Oral Tablet [ Nucynta] 07/27/2019 12:00:00 AM EDT eCW1 ([facility]) Acetaminophen 325 MG / Oxycodone Hydrochloride 5 MG Or al Tablet [Percocet] 07/27/2019 12:00:00 AM EDT eCW1 ([facility]) 12 HR tapentadol 100 MG Extended Release Oral Tablet [ Nucynta] 06/24/2019 12:00:00 AM EST eCW1 ([facility]) Acetaminophen 325 MG / Oxycodone Hydrochloride 5 MG Or al Tablet [Percocet] 06/24/2019 12:00:00 AM EST eCW1 ([facility]) 12 HR tapentadol 100 MG Extended Release Oral Tablet [ Nucynta] 05/27/2019 12:00:00 AM EST eCW1 ([facility]) Acetaminophen 325 MG / Oxycodone Hydrochloride 5 MG Or al Tablet [Percocet] 05/27/2019 12:00:00 AM EST eCW1 ([facility]) Acetaminophen 325 MG / Oxycodone Hydrochloride 5 MG Or al Tablet [Percocet] 04/24/2019 12:00:00 AM EST eCW1 ([facility]) 12 HR tapentadol 100 MG Extended Release Oral Tablet [ Nucynta] 04/24/2019 12:00:00 AM EST eCW1 ([facility]) 12 HR tapentadol 100 MG Extended Release Oral Tablet [ Nucynta] 03/27/2019 12:00:00 AM EST eCW1 ([facility]) Acetaminophen 325 MG / Oxycodone Hydrochloride 5 MG Or al Tablet [Percocet] 03/27/2019 12:00:00 AM EST eCW1 ([facility])
--- NOTE | 2020-05-21 13:58 | REP ---
INDICATION: left index finger swelling/dec rom COMPARISON: None. TECHNIQUE: Four views left 2nd digit. FINDINGS: There is no evidence of acute fracture, dislocation, or intrinsic bone disease. IMPRESSION: No fracture or dislocation. <Electronically signed by Tony Reyes > 05/21/20 [id number]
[2020-05-21 14:06] LABS: BASO # 0.1 10^3/uL (0.0-0.2); BASO % 0.9 % (0.0-1.0); EOS # 0.4 10^3/uL (0.0-0.5); EOS % 3.4 % (0.0-3.0); HEMATOCRIT 44.7 % (42.0-52.0); HEMOGLOBIN 14.9 g/dl (13.5-17.5); LYMPH # 1.9 10^3/uL (1.5-5.0); LYMPH % 17.8 % (24.0-44.0); MEAN CORPUSCULAR HEMOGLOBIN 29.1 pg (27.0-33.0); MEAN CORPUSCULAR HGB CONC 33.3 g/dl (32.0-36.5); MEAN CORPUSCULAR VOLUME 87.3 fl (80.0-96.0); MONO # 0.6 10^3/uL (0.0-0.8); MONO % 5.4 % (0.0-5.0); NEUTROPHILS # 7.9 10^3/uL (1.5-8.5); NEUTROPHILS % 72.2 % (36.0-66.0); PLATELET COUNT, AUTOMATED 278 10^3/uL (150-450); RED BLOOD COUNT 5.12 10^6/uL (4.30-6.10); WHITE BLOOD COUNT 10.9 10^3/uL (4.0-10.0)
[2020-05-21 14:26] LABS: ERYTHROCYTE SEDIMENTATION RATE 6 mm/hr (0-20)
--- NOTE | 2020-05-21 14:27 | REP ---
INDICATION: evaluate for abscess on right. COMPARISON: None. TECHNIQUE: Real-time sonographic evaluation of right neck soft tissues performed at the site of redness. FINDINGS: There is no underlying fluid collection or mass. IMPRESSION: No fluid collection in the right neck soft tissues. <Electronically signed by Tony Reyes > 05/21/20 [id number]
[2020-05-21 14:34] LABS: ALT/SGPT 32 U/L (12-78); BILIRUBIN,DIRECT < 0.1 MG/DL (0.0-0.2); BILIRUBIN,TOTAL 0.2 MG/DL (0.2-1.0); C REACTIVE PROTEIN QUANTITATIV 0.41 MG/DL (0.00-0.30); TOTAL PROTEIN 7.7 GM/DL (6.4-8.2)
[2020-05-21] MEDS ORDERED: DOXYCYCLINE HYCLATE 100 MG in D5W MINI-BAG PLUS 100 ML IV ONE (15:00)
[2020-05-21] MEDS ORDERED: DOXY100C37 PO (16:06)
[2020-05-21 16:15] VITALS: BP 128/90
== END 2020-05-21 16:17 | disposition home or self-care (01) ==
LOC: M ED 13:06
DX: L03.114 Cellulitis of left upper limb (principal); L03.221 Cellulitis of neck; Z88.6 Allergy status to analgesic agent; Z88.8 Allergy status to other drugs, medicaments and biological substances

== ENCOUNTER → 2020-06-16 | Outpatient (CLI) | payer SELFPAY ==
[~2020-06-16] MED LIST changes: +DOXY100C37 PO
== END ==
LOC: M LABSMTC 10:30
PROVIDERS: ATTEND Pediatrics
DX: Z20.822 Contact with and (suspected) exposure to COVID-19 (principal)

== ENCOUNTER → 2020-06-25 | Outpatient (CLI) | payer SELFPAY | LOC: M LABSMTC 11:30 | PROVIDERS: ATTEND Anesthesiology | DX: Z20.822 Contact with and (suspected) exposure to COVID-19 (principal) ==

== ENCOUNTER → 2020-06-30 | Outpatient (CLI) | payer OTHER ==
[~2020-06-30] MED LIST changes: +BUPIVACAINE HCL 0.25% 30ML VIAL As Ordered ONE; +ISOVUE-M 300 61% 15ML VIAL As Ordered ONE; +LIDOCAINE 1% SDV 30ML VIAL As Ordered ONE; +TRIAMCINOLONE ACETONIDE SUSP 40 MG/ML VIAL (J3301) As Ordered ONE; +oxyCODONE 5MG TAB As Ordered ONE
--- NOTE | 2020-06-30 12:35 | REP ---
INDICATION: BILATERAL THERAPEUTIC LUMBAR FACET BLOCK. COMPARISON: None. TECHNIQUE: Two C-arm views lower lumbar spine performed. FINDINGS: Two needles are seen along the lower lumbar facet joints bilaterally. A small amount of contrast is injected. IMPRESSION: 42 seconds of fluoroscopy time was utilized. <Electronically signed by Tony Reyes > 06/30/20 [id number]
== END ==
LOC: M PAIN 10:30
PROVIDERS: ATTEND Anesthesiology
DX: M47.816 Spondylosis without myelopathy or radiculopathy, lumbar region (principal); M47.817 Spondylosis without myelopathy or radiculopathy, lumbosacral region; Z87.891 Personal history of nicotine dependence; Z79.891 Long term (current) use of opiate analgesic; Z79.899 Other long term (current) drug therapy
CPT/HCPCS: 64493; 64494; J3301; Q9967

== ENCOUNTER → 2020-07-29 | Outpatient (CLI) | payer OTHER ==
[~2020-07-29] MED LIST changes: -BUPIVACAINE HCL 0.25% 30ML VIAL As Ordered ONE; -ISOVUE-M 300 61% 15ML VIAL As Ordered ONE; -LIDOCAINE 1% SDV 30ML VIAL As Ordered ONE; -TRIAMCINOLONE ACETONIDE SUSP 40 MG/ML VIAL (J3301) As Ordered ONE; -oxyCODONE 5MG TAB As Ordered ONE
--- NOTE | 2020-08-02 08:15 | ECWPNPC ---
PATIENT NAME: BEBE NERI BUCKY : 1960 GENDER: MALE VISIT DATE: 07/29/2020 DISCHARGE DATE: 07/29/20 1456 VISIT LOCKED DATE TIME: PHYSICIAN: ADAM JAMESON RESOURCE: ADAM JAMESON REASON FOR APPOINTMENT 1. POST BILATERAL THERAPEUTIC LUMBAR FACET BLOCK L4-L5, L5-S1 HISTORY OF PRESENT ILLNESS GENERAL: - 59-YEAR-OLD MALE IN FOR POST BILATERAL THERAPEUTIC LUMBAR FACET BLOCK FOLLOW-UP. PATIENT FEELS THE PROCEDURE WAS SUCCESSFUL OVERALL RATING HIS PAIN PREPROCEDURE AT AN 8-9 OUT OF 10 AND POSTPROCEDURE AT A 4-5 OUT OF 10. HE FURTHER STATES THE PROCEDURE CONTINUES TO HELP HIM TODAY RATING HIS PAIN CURRENTLY AT A 6 OUT OF 10. PATIENT FEELS THE PROCEDURE HAS IMPROVED HIS QUALITY OF LIFE HE IS ABLE TO HAVE INCREASED MOBILITY, DECREASED PAIN, AND INCREASED FUNCTIONALITY SINCE PROCEDURE. HE FURTHER STATES THAT HIS CURRENT MEDICATIONS HELP IMPROVE HIS QUALITY OF LIFE USE OF THEM INCREASES HIS FUNCTIONALITY AND DECREASES HIS PAIN. 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 THE PATIENT STATES HE IS EXPERIENCING LOW BACK PAIN, WITH MORE PAIN ON THE RIGHT SIDE. THE PATIENT SAYS HE HAS HAD MULTIPLE BACK SURGERIES, YET THE PAIN STILL PERSISTS. GENERAL. FALL RISK SCREENING: SCREENING : NO FALLS REPORTED IN THE LAST YEAR. PAIN SCREENING: PATIENT HAS A COMPLAINT OF ACUTE OR CHRONIC PAIN :YES LOCATION OF PAIN:LOW BACK, LEG(S) LEFT INTENSITY OF PAIN (SCALE OF 1 TO 10):6 WHAT DOES YOUR PAIN FEEL LIKE:ACHING, BURNING, CONTINOUS, STABBING DURATION:CONTINOUS, AWAKENS FROM SLEEP PAIN IS INCREASED BY:ACTIVITIES, OTHERS LYING TOO LONG PAIN IS DECREASED BY:USE OF PAIN MEDICATIONS, OTHERS HEAT PLAN/GOALS/TREATMENT/INTERVENTION/FOLLOW UP:SEE PLAN PAIN CENTER INTAKE QUESTIONS: DO YOU HAVE A HISTORY OF MRSA? :NO DO YOU TAKE A BLOOD THINNERS? :NO DO YOU HAVE ANY BLEEDING DISORDERS? :NO ANY NEW NUMBNESS OR WEAKNESS IN YOUR LEGS OR ARMS? :NO ANY PACEMAKER,DEFIBRILLATOR, OR DORSAL COLUMN STIMULATOR? :NO DO YOU HAVE ANY RASHES OR OPEN SORES? :NO ARE YOU ALLERGIC TO IV DYE? :NO ARE YOU DIABETIC? :NO ANY NEW PROBLEMS WITH YOUR MEDICATIONS? :NO HAVE YOU RECEIVED A VACCINE IN THE PAST 30 DAYS? :NO DO YOU PLAN TO RECEIVE A VACCINE IN THE NEXT 21 DAYS? :NO DO YOU NEED ANY PRESCRIPTION? :YES SOMA, PERCOCET, NUCYNTA DO YOU TAKE ANY IMMUNOSUPPRESSIVE MEDICATIONS? :NO IS THERE A CHANCE YOU COULD BE ? :N/A ARE YOU BREAST FEEDING? :N/A CURRENT MEDICATIONS TAKING PERCOCET 5-325 MG TABLET 1 TABLET ORALLY EVERY 4 -6 HOURS PRN PAIN MDD=4, NOTES: 06/30/2020 0600 TAKING NUCYNTA ER 100 MG TABLET EXTENDED RELEASE 12 HOUR 1 TABLET ORALLY FOR PAIN EVERY 24 HRS MDD1, NOTES: 06/30/2020 0600 TAKING SOMA 350 MG TABLET 1 TAB ORALLY DAILY AT BEDTIME NEEDED EVERY 2-3 NIGHTS FOR SPASMS AND PAIN MDD=1, NOTES: 2 DAYS NOT-TAKING CELEBREX 200 MG CAPSULE 1 CAPSULE ORALLY ONCE A DAY NEEDED FOR PAIN, NOTES: 04-12-19 0800 MEDICATION LIST REVIEWED AND RECONCILED WITH THE PATIENT PAST MEDICAL HISTORY GERD CHRONIC BACK PAIN ALLERGIES N.K.D.A. SOCIAL HISTORY GENERAL: TOBACCO USE ARE YOU A:FORMER SMOKER LATEX QUESTIONNAIRE LATEX ALLERGY : HAVE YOU EVER DEVELOPED ANY TYPE OF REACTION AFTER HANDLING LATEX PRODUCTS SUCH RUBBER GLOVES, CONDOMS, DIAPHRAGMS, BALLOONS, SOCKS, OR UNDERWEAR?NO LATEX ALLERGY : HAVE YOU EVER DEVELOPED ANY TYPE OF REACTION DURING OR AFTER DENTAL APPOINTMENT, VAGINAL/RECTAL EXAMINATION, SURGICAL PROCEDURE, OR ANY OTHER EXPOSURE?NO DATE ASKED : 02/05/2020 LATEX RISK : HAVE YOU EVER HAD ANY DIFFICULTY BREATHING OR HIVES AFTER EATING OR HANDLING ANY FRUITS, OR VEGETABLES; SUCH KIWI, BANANAS, STONE FRUITS, OR CHESTNUTSNO LATEX RISK : DO YOU HAVE A PREVIOUS PERSONAL HISTORY OF MORE THAN NINE SURGERIES, SPINA BIFIDA, OR REPEATED CATHERIZATIONS? NO LATEX RISK : ARE YOU FREQUENTLY EXPOSED TO LATEX PRODUCTS IN YOUR OCCUPATION?NO ALCOHOL USE: NO. ALCOHOL SCREENING DID YOU HAVE A DRINK CONTAINING ALCOHOL IN THE PAST YEAR?NO POINTS0 INTERPRETATIONNEGATIVE RECREATIONAL DRUG USE DRUG USE?NO CAFFEINE CAFFEINE USE?YES HOW OFTEN AND HOW MUCH? DAILY COFFEE SIKH [id number] NONE NO CONFUCIANISM BELIEFS THAT WOULD IMPACT HEALTH CARE. 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 EXERCISE: NO REGULAR EXERCISE. MARITAL STATUS: . OTHERS AT HOME: SPOUSE. FEMALE 6 MONTH RISK ASSESSMENT FOR STD SPOUSE. - PFS REFERRAL NEEDED?NO CLERGY REFERRAL NEEDED?NO PUBLIC HEALTH REFERRAL NEEDED?NO WAS THE PROVIDER NOTIFIED OF ANY PERTINENT INFO?YES HAS THE PATIENT BEEN EDUCATED REGARDING HIS/HER PLAN OF CARE?YES HAS THE PATIENT BEEN EDUCATED REGARDING PAIN, THE RISK FOR PAIN, THE IMPORTANCE OF EFFECTIVE PAIN MANAGEMENT, AND THE PAIN ASSESSMENT PROCESS?YES ADVANCE DIRECTIVE ADVANCE DIRECTIVE DISCUSSED WITH PATIENT:YES HCP PARVEZ NERI, REVIEW OF SYSTEMS CONSTITUTIONAL: ANY RECENT FEVER NO . CHILLS NO . WEIGHT CHANGE OF UNKNOWN REASONS NO . GASTROENTEROLOGY: NEW UNEXPLAINABLE CHANGES IN BOWEL CONTROL NO . CONSTIPATION NO . GENITOURINARY: ANY NEW CHANGE IN BLADDER CONTROL? NO . NEUROLOGY: NEW ONSET DIZZINESS OR NEUROLOGICAL CHANGES NOT MENTIONED NO . NEW NUMBNESS OR PAIN PATTERNS NOT MENTIONED AND PERTINENT TO TODAY'S VISIT NO . CARDIOLOGY: NEW CHEST PRESSURE NO . PATIENT DENIES NO . RESPIRATORY: UNEXPLAINABLE COUGH NO . NEW SHORTNESS OF BREATH NO . VITAL SIGNS WT 226.2 LBS, HT 70 IN, BMI 32.45 INDEX, BP 130/85 MM HG, HR 84 /MIN, RR 18 /MIN, TEMP 98.0 F, OXYGEN SAT % 94%, SAFE IN ENV? (Y/N) YES, NA INITIALS SC 13:37, REVIEWED BY: [facility] WELLNESS COORDINATOR. EXAMINATION GENERAL EXAMINATION: GENERALNO ACUTE DISTRESS, WELL NOURISHED AND HYDRATED. PSYCHAPPROPRIATE MOOD AND AFFECT . LUNGS:CLEAR TO AUSCULTATION BILATERALLY, NO WHEEZES, RHONCHI, RALES. HEART:NO MURMURS, REGULAR RATE AND RHYTHM. ASSESSMENTS OTHER CHRONIC PAIN - G89.29 (PRIMARY) INTERVERTEBRAL DISC DISORDER WITH RADICULOPATHY OF LUMBOSACRAL REGION - M51.17 TREATMENT OTHER CHRONIC PAIN PAIN PROCEDURE LOGDATE OF [id number]/25/2021PROCEDURE:BILATERAL THERAPEUTIC LUMBAR FACET BLOCK L4-L5, L5-[id number] OF PRE SEDATEOXYCODONE 10 MGRESULT:PRE 8-9/10 POST 4-5/10 CONTINUES TO HELP TODAY NOTES: 59-YEAR-OLD MALE IN FOR BILATERAL THERAPEUTIC LUMBAR FACET BLOCK FOLLOW-UP. GIVEN PRESENTING SYMPTOMS RECOMMEND FOLLOW-UP IN 2 MONTHS. PATIENT HAS EXPRESSED UNDERSTANDING OF AND WAS IN AGREEMENT WITH TREATMENT PLAN. GIVEN TIME TO ASK QUESTIONS AND EXPRESS CONCERNS. , ISTOP REGISTRY REVIEWED AND DEMONSTRATES COMPLLIANCE. (REF #[id number] ) BRINGS IN MEDICATIONS WHICH IS APPROPRIATE FOR WHAT WAS DISPENSED. RECENT URINE TOXICOLOGY REVIEWED. NO UNAUTHORIZED MEDICATIONS. NO ILLICIT SUBSTANCES AND PRESCRIBED MEDICATIONS WERE PRESENT. INTERVERTEBRAL DISC DISORDER WITH RADICULOPATHY OF LUMBOSACRAL REGION REFILL PERCOCET TABLET, 5-325 MG, 1 TABLET, ORALLY, EVERY 4 -6 HOURS PRN PAIN MDD=4, 30 DAY(S), 120, REFILLS 0, NOTES: 06/30/2020 0600 REFILL NUCYNTA ER TABLET EXTENDED RELEASE 12 HOUR, 100 MG, 1 TABLET, ORALLY FOR PAIN, EVERY 24 HRS MDD1, 30 DAYS, 30, REFILLS 0, NOTES: 06/30/2020 0600 REFILL SOMA TABLET, 350 MG, 1 TAB, ORALLY, DAILY AT BEDTIME NEEDED EVERY 2-3 NIGHTS FOR SPASMS AND PAIN MDD=1, 30 DAYS, 12, REFILLS 0, NOTES: 2 DAYS PROCEDURES PN WORKMANS' COMP OPINION IN YOUR OPINION, WAS THE INCIDENT THAT THE PATIENT DESCRIBED THE COMPETENT MEDICAL CAUSE OF THIS INJURY/ILLNESS? YES ARE THE PATIENT'S COMPLAINTS CONSISTENT WITH HIS/HER HISTORY OF THE INJURY/ILLNESS? YES IS THE PATIENT'S HISTORY OF THE INJURY/ILLNESS CONSISTENT WITH YOUR OBJECTIVE FINDING? YES WHAT IS THE PERCENTAGE OF TEMPORARY IMPAIRMENT? MARKED = 75% IS THE PATIENT WORKING? NO DOCTOR ON SITE: ARLEY HANKS MD PROCEDURE CODES FA211 ESTABILISHED PATIENT [facility] CHARGE DISPOSITION & COMMUNICATION FOLLOW UP 2 MONTHS (REASON: WORKERS COMP BACK PAIN ) ELECTRONICALLY SIGNED BY PAT DC ON 08/01/2020 AT 08:49 AM EDT DISCLAIMER : THIS IS A VISIT SUMMARY EXTRACTED FROM THE [employer] CHART. IT IS NOT A COPY OF THE [employer] PROGRESS NOTE. PAPA
== END ==
LOC: M PAIN 14:45
PROVIDERS: ATTEND Family Medicine
DX: G89.29 Other chronic pain (principal); M51.17 Intervertebral disc disorders with radiculopathy, lumbosacral region; Z87.891 Personal history of nicotine dependence; Z79.891 Long term (current) use of opiate analgesic; Z79.899 Other long term (current) drug therapy

== ENCOUNTER 2020-08-09 14:56 | Inpatient (IN) | payer MEDICARE, OTHER, SELFPAY ==
[~2020-08-09] VITALS: Ht 177.8 cm; Wt 96.5 kg
[2020-08-09 16:27] LABS: BASO % 0.3 % (0.0-1.0); EOS # 0.1 10^3/uL (0.0-0.5); EOS % 1.3 % (0.0-3.0); HEMATOCRIT 44.1 % (42.0-52.0); HEMOGLOBIN 14.5 g/dl (13.5-17.5); LYMPH # 1.9 10^3/uL (1.5-5.0); LYMPH % 18.3 % (24.0-44.0); MEAN CORPUSCULAR HEMOGLOBIN 29.3 pg (27.0-33.0); MEAN CORPUSCULAR HGB CONC 32.9 g/dl (32.0-36.5); MEAN CORPUSCULAR VOLUME 89.1 fl (80.0-96.0); MONO # 0.7 10^3/uL (0.0-0.8); MONO % 6.9 % (2.0-8.0); NEUTROPHILS # 7.5 10^3/uL (1.5-8.5); PLATELET COUNT, AUTOMATED 230 10^3/uL (150-450); RED BLOOD COUNT 4.95 10^6/uL (4.30-6.10); WHITE BLOOD COUNT 10.3 10^3/uL (4.0-10.0)
[2020-08-09] MEDS ORDERED: cefTRIAXone SOD 2 GM in D5W MINI-BAG PLUS 50 ML IV ONE (16:30)
[2020-08-09] MEDS ORDERED: NS 1,000 ML IV ONE (16:30)
[2020-08-09] MEDS ORDERED: NUCY100T11 PO (16:44)
[2020-08-09] MEDS ORDERED: CARI1TAB7 PO (16:44)
[2020-08-09] MEDS ORDERED: OXYC1TAB23 PO (16:44)
[2020-08-09 16:57] LABS: BLOOD UREA NITROGEN 22 MG/DL (7-18); CARBON DIOXIDE LEVEL 30 MEQ/L (21-32); CHLORIDE LEVEL 108 MEQ/L (98-107); CREATININE FOR GFR 1.16 MG/DL (0.70-1.30); GLOMERULAR FILTRATION RATE > 60.0 (>56); GLUCOSE, FASTING 97 MG/DL (70-100); POTASSIUM SERUM 4.1 MEQ/L (3.5-5.1); SODIUM LEVEL 140 MEQ/L (136-145)
--- NOTE | 2020-08-09 17:10 | REP ---
INDICATION: edema. COMPARISON: None. TECHNIQUE: Duplex ultrasound of the right lower extremity deep veins. FINDINGS: The deep veins demonstrate normal compression, normal Doppler color flow and normal Doppler waveforms with respiration and augmentation at multiple levels from the popliteal vein to the common femoral vein. IMPRESSION: There is no evidence of right lower extremity deep vein thrombus. <Electronically signed by Tony Mckenna > 08/09/20 9600
[2020-08-09 17:17] LABS: ALBUMIN 3.9 GM/DL (3.2-5.2); ALT/SGPT 27 U/L (12-78); BILIRUBIN,DIRECT < 0.1 MG/DL (0.0-0.2); BILIRUBIN,TOTAL 0.3 MG/DL (0.2-1.0); TOTAL PROTEIN 7.5 GM/DL (6.4-8.2)
[2020-08-09 17:22] LABS: RSV AMPLIFICATION NEGATIVE (NEGATIVE)
[2020-08-09 17:46] LABS: INR 0.98; PROTHROMBIN TIME 13.2 SECONDS (12.5-14.3)
[2020-08-09] MEDS ORDERED: CEPH500T PO (17:46)
[2020-08-09 18:12] LABS: C REACTIVE PROTEIN QUANTITATIV 3.71 MG/DL (0.00-0.30)
[2020-08-09] MEDS ORDERED: ACETAMINOPHEN TAB 650MG DOSE (2X325MG) PO PRN (18:15)
[2020-08-09] MEDS ORDERED: MOM 30ML SUSPENSION UDC PO PRN (18:15)
--- NOTE | 2020-08-09 18:19 | HPEPDOC ---
[facility] Medical History & Physical Date of Admission Aug 09, 2020 Date of Service: Aug 09, 2020 History and Physical Chief complaint: Who presented to the emergency room with right leg swelling History of present illness: Patient is a 59-year-old male who presented to the emergency room with right leg swelling. Patient noted that yesterday he had itching on his farrell that slowly began to become more red and progressed to swelling. Patient reports that he has not experience any trauma to his leg. He did report some mild drainage to his right farrell while in the ER. Patient denies any fevers or chills. 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 Review of Systems: 10 point review of systems complete, all negative otherwise stated in HPI Physical exam: - Vitals: BP [147/66], HR [89], RR [18], Sat [97%RA], Temp [99.4F] - General: Lying in bed, Speaking in full sentences, AAOx3 - HEENT: NC, AT, PERRLA - CVS: RRR, +S1S2 - Lungs: Fair air entry bilaterally, No appreciable wheezing / rales / rhonchi - Abdomen: Soft, Non-distended, Non-tender - Extremities: RLE with swelling, no calf tenderness - Neuro: No focal motor or sensory deficit - Skin: RLE with erythema / warmth / tenderness / mild drainage noted on farrell Labs: See below Imaging: See below EKG: See below Assessment and Plan: RLE cellulitis - Patient presented to the ER with right lower tremors swelling - Physical reveals erythema, tenderness and edema - There is mild leukocytosis - Will check lactic acid / blood cultures / CRP / ESR / Wound cultures - Patient received Ceftriaxone in ER - Will continue Ceftriaxone and add Doxycycline for MRSA coverage - Will increase Percocet for pain control Chronic back pain - c/w Percocet DVT prophylaxis - Will start Heparin Vital Signs Vital Signs Date Time Temp Pulse Resp B/P (MAP) Pulse Ox O2 Delivery O2 Flow Rate FiO2 08/09/20 15:28 08/09/20 14:57 99.4 89 18 97 Room Air Laboratory Data Labs 24H Laboratory Tests 2 08/09/20 16:07: Immature Granulocyte % (Auto) 0.2, Neutrophils (%) (Auto) 73.0H, Lymphocytes (%) (Auto) 18.3L, Monocytes (%) (Auto) 6.9, Eosinophils (%) (Auto) 1.3, Basophils (%) (Auto) 0.3, Neutrophils # (Auto) 7.5, Lymphocytes # (Auto) 1.9, Monocytes # (Auto) 0.7, Eosinophils # (Auto) 0.1, Basophils # (Auto) 0.0, Nucleated Red Blood Cells % (auto) 0.0, Anion Gap 2L, Glomerular Filtration Rate > 60.0, Calcium Level 9.0, Total Bilirubin 0.3, Direct Bilirubin < 0.1, Aspartate Amino Transf (AST/SGOT) 18, Alanine Aminotransferase (ALT/SGPT) 27, Alkaline Phosphatase 79, C-Reactive Protein, Quantitative 3.71H, Total Protein 7.5, Albumin 3.9, Albumin/Globulin Ratio 1.1 08/09/20 16:28: Prothrombin Time 13.2, Prothromb Time International Ratio 0.98 08/09/20 16:37: Coronavirus (COVID-19)(PCR) NEGATIVE, Influenza Type A (RT-PCR) NEGATIVE, Influenza Type B (RT-PCR) NEGATIVE, Respiratory Syncytial Virus (PCR) NEGATIVE CBC/BMP Laboratory Tests 08/09/20 16:07 Microbiology Microbiology 08/09/20 Blood Culture, Received Pending 08/09/20 Blood Culture, Received Pending Home Medications Scheduled Cephalexin (Cephalexin) 500 Mg Tablet, 500 MG PO QID Tapentadol HCl (Nucynta ER) 100 Mg Tab.er.12h, 100 MG PO DAILY Scheduled PRN Carisoprodol (Carisoprodol) 350 Mg Tablet, 350 MG PO QHS PRN for SPASMS EVERY 2 TO 3 NIGHTS NEEDED Oxycodone HCl/Acetaminophen (Oxycodone-Acetaminophen 5-325) 1 Each Tablet, 1 TAB PO Q4-6HP PRN for PAIN Allergies Coded Allergies: pregabalin (Verified Allergy, Unknown, hives, 11/21/19) trazodone (Verified Adverse Reaction, Unknown, insomnia/hyper, 11/21/19) GAB THURMAN MD Aug 09, 2020 18:19
[2020-08-09] MEDS ORDERED: carisoprodoL 350 MG TAB PO PRN (18:20)
[2020-08-09 18:40] LABS: ERYTHROCYTE SEDIMENTATION RATE 12 mm/hr (0-20)
[2020-08-09] MEDS: DOXYCYCLINE HYCLATE 100 MG in D5W MINI-BAG PLUS 100 ML IV SCH (20:38)
[2020-08-09] MEDS: DOCUSATE SODIUM 100MG CAPSULE PO SCH (20:38)
[2020-08-09] MEDS: PERCOCET 5MG/325MG TAB PO PRN (20:39)
[2020-08-09] MEDS: HEPARIN SOD (PORCINE) 5000UNITS/ML 1ML VIAL/SYRINGE SC SCH (20:40)
[2020-08-09 22:35] VITALS: BP 115/70
[2020-08-10 05:55] LABS: BASO % 0.4 % (0.0-1.0); EOS # 0.2 10^3/uL (0.0-0.5); EOS % 2.9 % (0.0-3.0); HEMATOCRIT 40.4 % (42.0-52.0); HEMOGLOBIN 13.3 g/dl (13.5-17.5); LYMPH # 1.6 10^3/uL (1.5-5.0); LYMPH % 20.5 % (24.0-44.0); MEAN CORPUSCULAR HEMOGLOBIN 29.2 pg (27.0-33.0); MEAN CORPUSCULAR HGB CONC 32.9 g/dl (32.0-36.5); MEAN CORPUSCULAR VOLUME 88.8 fl (80.0-96.0); MONO # 0.6 10^3/uL (0.0-0.8); MONO % 7.9 % (2.0-8.0); NEUTROPHILS # 5.2 10^3/uL (1.5-8.5); PLATELET COUNT, AUTOMATED 205 10^3/uL (150-450); RED BLOOD COUNT 4.55 10^6/uL (4.30-6.10); WHITE BLOOD COUNT 7.6 10^3/uL (4.0-10.0)
[2020-08-10 06:00] VITALS: BP 115/71
[2020-08-10 06:16] LABS: BLOOD UREA NITROGEN 14 MG/DL (7-18); CALCIUM LEVEL 8.4 MG/DL (8.5-10.1); CARBON DIOXIDE LEVEL 27 MEQ/L (21-32); CHLORIDE LEVEL 105 MEQ/L (98-107); CREATININE FOR GFR 0.91 MG/DL (0.70-1.30); GLOMERULAR FILTRATION RATE > 60.0 (>56); GLUCOSE, FASTING 85 MG/DL (70-100); MAGNESIUM LEVEL 2.1 MG/DL (1.8-2.4); SODIUM LEVEL 141 MEQ/L (136-145)
[2020-08-10] MEDS: DOXYCYCLINE HYCLATE 100 MG in D5W MINI-BAG PLUS 100 ML IV SCH ×2 (06:46→18:06)
[2020-08-10] MEDS: HEPARIN SOD (PORCINE) 5000UNITS/ML 1ML VIAL/SYRINGE SC SCH ×3 (06:47→21:19)
[2020-08-10] MEDS: PERCOCET 5MG/325MG TAB PO PRN ×3 (06:48→21:20)
[2020-08-10] MEDS: DOCUSATE SODIUM 100MG CAPSULE PO SCH ×2 (08:34→21:19)
[2020-08-10] MEDS: ONDANSETRON 4MG/2ML VIAL IV PRN ×2 (11:05→17:12)
--- NOTE | 2020-08-10 12:40 | IPNPDOC ---
Text Note Date of Service The patient was seen on 08/10/20. NOTE Subjective: Patient is a 59-year-old male who presented to the emergency room with right leg swelling. Patient noted that yesterday he had itching on his farrell that slowly began to become more red and progressed to swelling. Patient reports that he has not experience any trauma to his leg. He did report some mild drainage to his right farrell while in the ER. Patient was admitted to the hospital service for further evaluation and treatment. Patient was seen and examined at the bedside. Patient reports that his right leg pain is doing better. The redness has improved. Swelling has resolved. Patient denies any chest pain, short of breath, palpitations. Has reported some nausea this morning. Objective: Vitals (See below) General: Lying in bed, appears comfortable, AAOx3 HEENT: NC, AT CVS: RRR, +S1S2 Lungs: Fair air entry b/l, -w/r/r Abdomen: Soft, ND, NT Extremities: - Edema, - Calf tenderness Skin: Right lower extremity with improvement of erythema or warmth and edema Assessment and plan: RLE cellulitis - Physical reveals an improvement of right lower extreme erythema, warmth and edema - s/p Leukocytosis - No lactic acidosis - Blood cultures / Wound cultures pending - c/w Ceftriaxone and Doxycycline - c/w Percocet for pain control Chronic back pain - c/w Percocet DVT prophylaxis - c/w Heparin Disposition: - Anticipate discharge tomorrow VS,Johne, I+O VS, [place], I+O Laboratory Tests 08/09/20 16:07 08/10/20 05:19 Vital Signs Date Time Temp Pulse Resp B/P (MAP) Pulse Ox O2 Delivery O2 Flow Rate FiO2 08/10/20 08:34 18 Room Air 08/10/20 06:00 98.7 72 115/71 (86) 95 I&O- Last 24 Hours up to 6 AM 08/10/20 05:59 Intake Total 1300 ml Output Total 150 ml Balance 1150 ml GAB THURMAN MD Aug 10, 2020 12:40
[2020-08-10 14:00] VITALS: BP 113/71
[2020-08-10] MEDS ORDERED: OMEPRAZOLE 20 MG CAP PO ONE (15:55)
[2020-08-10] MEDS ORDERED: cefTRIAXone SOD 1 GM in D5W MINI-BAG PLUS 50 ML IV SCH (18:00)
[2020-08-10 22:00] VITALS: BP 135/77
[2020-08-11 06:00] VITALS: BP 108/72
[2020-08-11] MEDS: HEPARIN SOD (PORCINE) 5000UNITS/ML 1ML VIAL/SYRINGE SC SCH (06:00)
[2020-08-11] MEDS: DOXYCYCLINE HYCLATE 100 MG in D5W MINI-BAG PLUS 100 ML IV SCH (06:00)
[2020-08-11] MEDS: PERCOCET 5MG/325MG TAB PO PRN (06:02)
[2020-08-11 06:21] LABS: BASO % 0.5 % (0.0-1.0); EOS # 0.2 10^3/uL (0.0-0.5); EOS % 3.9 % (0.0-3.0); HEMATOCRIT 40.6 % (42.0-52.0); HEMOGLOBIN 13.4 g/dl (13.5-17.5); LYMPH # 1.6 10^3/uL (1.5-5.0); LYMPH % 26.5 % (24.0-44.0); MEAN CORPUSCULAR HEMOGLOBIN 29.4 pg (27.0-33.0); MONO # 0.5 10^3/uL (0.0-0.8); MONO % 7.6 % (2.0-8.0); NEUTROPHILS # 3.8 10^3/uL (1.5-8.5); NEUTROPHILS % 61.3 % (36.0-66.0); PLATELET COUNT, AUTOMATED 217 10^3/uL (150-450); RED BLOOD COUNT 4.56 10^6/uL (4.30-6.10); WHITE BLOOD COUNT 6.2 10^3/uL (4.0-10.0)
[2020-08-11 06:42] LABS: BLOOD UREA NITROGEN 13 MG/DL (7-18); CALCIUM LEVEL 8.8 MG/DL (8.5-10.1); CARBON DIOXIDE LEVEL 30 MEQ/L (21-32); CHLORIDE LEVEL 105 MEQ/L (98-107); CREATININE FOR GFR 0.93 MG/DL (0.70-1.30); GLOMERULAR FILTRATION RATE > 60.0 (>56); GLUCOSE, FASTING 92 MG/DL (70-100); MAGNESIUM LEVEL 2.2 MG/DL (1.8-2.4); POTASSIUM SERUM 4.3 MEQ/L (3.5-5.1); SODIUM LEVEL 140 MEQ/L (136-145)
[2020-08-11] MEDS ORDERED: DOXY-350 PO (08:33)
[2020-08-11] MEDS ORDERED: AUGM875T28 PO (08:33)
[2020-08-11] MEDS: DOCUSATE SODIUM 100MG CAPSULE PO SCH (08:55)
[2020-08-11] MEDS: ONDANSETRON 4MG/2ML VIAL IV PRN (08:55)
[2020-08-11] MEDS ORDERED: OMEPRAZOLE 20 MG CAP PO SCH (09:00)
--- NOTE | 2020-08-11 12:12 | DS.PDOC ---
Discharge Summary General Date of Admission Aug 09, 2020 at 18:12 Date of Discharge 08/11/2020 Discharge Summary PROCEDURES PERFORMED DURING STAY: [None]. ADMITTING DIAGNOSES / DISCHARGE DIAGNOSES: RLE cellulitis Chronic back pain DVT prophylaxis COMPLICATIONS/CHIEF COMPLAINT: Right leg redness / swelling HISTORY OF PRESENT ILLNESS: Patient is a 59-year-old male who presented to the emergency room with right leg swelling. Patient noted that yesterday he had itching on his farrell that slowly began to become more red and progressed to swelling. Patient reports that he has not experience any trauma to his leg. He did report some mild drainage to his right farrell while in the ER. Patient was admitted to the hospital service for further evaluation and treatment. HOSPITAL COURSE: RLE cellulitis - Patient reports that they're leg swelling, warmth and redness has improved significantly - s/p Leukocytosis - No lactic acidosis - Blood cultures 08/09: Negative at 24 hours - Wound culture 08/10: Preliminary result on Gram stain does not reveal any organisms - Will DC Ceftriaxone and Doxycycline; will complete antibiotic course with Augmentin and doxycycline for an additional 7 days - Will resume home dose of Percocet for back pain now that the right lower extremity pain has resolved - Patient has been instructed follow-up with primary provider at next 7 days Chronic back pain - c/w Percocet DVT prophylaxis - c/w Heparin DISCHARGE MEDICATIONS: Please see below. ALLERGIES: Please see below. PHYSICAL EXAMINATION ON DISCHARGE: Vitals (See below) General: Sitting up in bed, appears comfortable, not in any acute distress, is awake, alert and oriented 3 HEENT: NC, AT CVS: +S1S2 Lungs: Fair air entry b/l, auscultation is free of rhonchi, crackles or wheezing Abdomen: Soft, nondistended, nontender Extremities: Lower extremities are without any edema, - Calf tenderness Skin: RLE with improvement erythema; resolution of warmth / tenderness LABORATORY DATA: Please see below. IMAGING: Duplex US 08/09: There is no evidence of right lower extremity deep vein thrombus. ACTIVITY: [As tolerated]. DISCHARGE PLAN: Follow up with primary care provider within the next 7 days Remain compliant with treatment plan and medications Return to the ER if you experience any problems DISPOSITION: Home, Self-Care. DISCHARGE CONDITION: [Stable]. TIME SPENT ON DISCHARGE: 35 minutes. Vital Signs/I&Os Vital Signs Date Time Temp Pulse Resp B/P (MAP) Pulse Ox O2 Delivery O2 Flow Rate FiO2 08/11/20 06:32 16 08/11/20 06:00 97.6 65 108/72 (84) 98 08/10/20 22:00 Room Air I&O- Last 24 Hours up to 6 AM 08/11/20 06:00 Intake Total 780 ml Output Total 1100 ml Balance -320 ml Laboratory Data Labs 24H Laboratory Tests 2 08/10/20 12:54: Methicillin-Resist S.aureus DNA PCR NOT DETECTED 08/11/20 05:25: Immature Granulocyte % (Auto) 0.2, Neutrophils (%) (Auto) 61.3, Lymphocytes (%) (Auto) 26.5, Monocytes (%) (Auto) 7.6, Eosinophils (%) (Auto) 3.9H, Basophils (%) (Auto) 0.5, Neutrophils # (Auto) 3.8, Lymphocytes # (Auto) 1.6, Monocytes # (Auto) 0.5, Eosinophils # (Auto) 0.2, Basophils # (Auto) 0.0, Nucleated Red Blood Cells % (auto) 0.0, Anion Gap 5L, Glomerular Filtration Rate > 60.0, Calcium Level 8.8, Magnesium Level 2.2, C-Reactive Protein, Quantitative 3.00H CBC/BMP Laboratory Tests 08/11/20 05:25 Microbiology Microbiology 08/10/20 Gram Stain - Final, Resulted 08/10/20 Wound Culture, Resulted Pending 08/09/20 Blood Culture - Preliminary, Resulted No growth after 24 hours . All specim... 08/09/20 Blood Culture - Preliminary, Resulted No growth after 24 hours . All specim... Discharge Medications Scheduled Amoxicillin/Potassium Clav (Augmentin 875-125 Tablet) 1 Each Tablet, 1 TAB PO BID Doxycycline Monohydrate (Doxycycline) 100 Mg Capsule, 1 CAP PO BID Tapentadol HCl (Nucynta ER) 100 Mg Tab.er.12h, 100 MG PO DAILY, (Reported) Scheduled PRN Carisoprodol (Carisoprodol) 350 Mg Tablet, 350 MG PO QHS PRN for SPASMS, (Reported) EVERY 2 TO 3 NIGHTS NEEDED Oxycodone HCl/Acetaminophen (Oxycodone-Acetaminophen 5-325) 1 Each Tablet, 1 TAB PO Q4-6HP PRN for PAIN, (Reported) Allergies Coded Allergies: pregabalin (Verified Allergy, Unknown, hives, 11/21/19) trazodone (Verified Adverse Reaction, Unknown, insomnia/hyper, 11/21/19) GAB THURMAN MD Aug 11, 2020 12:12
== END 2020-08-11 11:25 | disposition home or self-care (01) | DRG 603 ==
LOC: M ED 14:56 → M ED INP 18:12 → M MSPAV 22:35
PROVIDERS: ADMIT Internal Medicine; ATTEND Internal Medicine
DX: L03.115 Cellulitis of right lower limb (principal); M54.5 Low back pain; Z88.0 Allergy status to penicillin; Z88.8 Allergy status to other drugs, medicaments and biological substances; Z79.899 Other long term (current) drug therapy

== ENCOUNTER 2020-08-15 09:19 | Emergency (ER) | payer MEDICARE, SELFPAY ==
[~2020-08-15] VITALS: Ht 177.8 cm; Wt 98.5 kg
[~2020-08-15 09:19] MED LIST changes: +AUGM875T28 PO; +CARI1TAB7 PO; +CEPH500T PO; +DOXY-350 PO; +NUCY100T11 PO
--- NOTE | 2020-08-15 10:02 | REP ---
INDICATION: R/O DVT COMPARISON: 08/09/2020. TECHNIQUE: Real time compression and duplex Doppler interrogation of the right lower extremity deep venous system is performed. FINDINGS: The right common femoral, superficial femoral and popliteal veins are fully compressible with transducer pressure and demonstrate normal spontaneous and phasic flow, without evidence of deep venous thrombosis. IMPRESSION: No evidence of deep venous thrombosis of the right lower extremity femoral popliteal venous system. <Electronically signed by Tony Reyes > 08/15/20 0980
[2020-08-15] MEDS ORDERED: FAMOTIDINE IV BAG 20 MG in IV 1 EA IV ONE (10:05)
[2020-08-15] MEDS ORDERED: diphenhydrAMINE 50MG/ML VIAL (J1200) IV ONE (10:05)
[2020-08-15] MEDS ORDERED: methylPREDNISolone 125MG 2ML VIAL IV ONE (10:05)
[2020-08-15 10:46] LABS: BASO # 0.1 10^3/uL (0.0-0.2); BASO % 0.4 % (0.0-1.0); EOS # 0.2 10^3/uL (0.0-0.5); EOS % 1.5 % (0.0-3.0); HEMATOCRIT 42.9 % (42.0-52.0); HEMOGLOBIN 14.6 g/dl (13.5-17.5); LYMPH % 14.8 % (24.0-44.0); MEAN CORPUSCULAR VOLUME 88.1 fl (80.0-96.0); MONO # 0.6 10^3/uL (0.0-0.8); MONO % 4.7 % (2.0-8.0); NEUTROPHILS # 10.4 10^3/uL (1.5-8.5); NEUTROPHILS % 78.2 % (36.0-66.0); PLATELET COUNT, AUTOMATED 272 10^3/uL (150-450); RED BLOOD COUNT 4.87 10^6/uL (4.30-6.10); WHITE BLOOD COUNT 13.3 10^3/uL (4.0-10.0)
[2020-08-15 10:56] LABS: INR 0.94; PROTHROMBIN TIME 12.8 SECONDS (12.5-14.3)
[2020-08-15 10:57] LABS: PARTIAL THROMBOPLASTIN TIME 27.1 SECONDS (24.2-38.5)
[2020-08-15 11:04] LABS: ERYTHROCYTE SEDIMENTATION RATE 8 mm/hr (0-20)
[2020-08-15 11:15] LABS: ALT/SGPT 67 U/L (12-78); BILIRUBIN,DIRECT 0.1 MG/DL (0.0-0.2); BILIRUBIN,TOTAL 0.3 MG/DL (0.2-1.0); BLOOD UREA NITROGEN 19 MG/DL (7-18); CALCIUM LEVEL 9.3 MG/DL (8.5-10.1); CARBON DIOXIDE LEVEL 27 MEQ/L (21-32); CHLORIDE LEVEL 106 MEQ/L (98-107); CREATININE FOR GFR 0.94 MG/DL (0.70-1.30); GLOMERULAR FILTRATION RATE > 60.0 (>56); GLUCOSE, FASTING 91 MG/DL (70-100); POTASSIUM SERUM 3.9 MEQ/L (3.5-5.1); SODIUM LEVEL 139 MEQ/L (136-145); TOTAL PROTEIN 7.5 GM/DL (6.4-8.2)
[2020-08-15] MEDS ORDERED: KETOROLAC 30 MG/ML 1ML VIAL IV ONE (11:15)
[2020-08-15] MEDS ORDERED: CLEO300C2 PO (12:03)
[2020-08-15] MEDS ORDERED: PEPC1TAB5 PO (12:03)
[2020-08-15] MEDS ORDERED: PRED20TA PO (12:03)
[2020-08-15 12:39] VITALS: BP 108/64
== END 2020-08-15 12:40 | disposition home or self-care (01) ==
LOC: M ED 09:19
DX: L50.0 Allergic urticaria (principal); Z87.2 Personal history of diseases of the skin and subcutaneous tissue; N40.0 Benign prostatic hyperplasia without lower urinary tract symptoms; K21.9 Gastro-esophageal reflux disease without esophagitis; Z88.8 Allergy status to other drugs, medicaments and biological substances; Z79.899 Other long term (current) drug therapy
CPT/HCPCS: 80048; 80076; 83605; 85025; 85610; 85652; 85730; 87040; 93971; 96361; 96374; 96375; 99283; J1200; J1885; J2930

== ENCOUNTER → 2020-09-29 | Outpatient (CLI) | payer OTHER ==
[~2020-09-29] MED LIST changes: +CLEO300C2 PO; +PEPC1TAB5 PO; +PRED20TA PO
--- NOTE | 2020-10-01 06:59 | ECWPNPC ---
PATIENT NAME: BEBE NERI BUCKY : 1960 GENDER: MALE VISIT DATE: 09/29/2020 DISCHARGE DATE: 09/29/20 1457 VISIT LOCKED DATE TIME: PHYSICIAN: ADAM JAMESON RESOURCE: ADAM JAMESON REASON FOR APPOINTMENT 1. 2 MONTH F/U HISTORY OF PRESENT ILLNESS DEPRESSION SCREENING: PHQ-2 (2015 EDITION) LITTLE INTEREST OR PLEASURE IN DOING THINGS?NOT AT ALL FEELING DOWN, DEPRESSED, OR HOPELESS?NOT AT ALL TOTAL SCORE0 GENERAL: HPI 59-YEAR-OLD MALE IN FOR CHRONIC PAIN FOLLOW-UP. HE RATES HIS PAIN CURRENTLY AT A 6 OUT OF 10 AND DESCRIBES IT ACHING, CONTINUOUS, AND STABBING. HE FEELS MEDICATIONS ARE HELPFUL AND DENIES MED SIDE EFFECTS AT THIS TIME. DOI: 01/24/2010. -. FALL RISK SCREENING: SCREENING : NO FALLS REPORTED IN THE LAST YEAR. PAIN SCREENING: PATIENT HAS A COMPLAINT OF ACUTE OR CHRONIC PAIN :YES LOCATION OF PAIN:LOW BACK INTENSITY OF PAIN (SCALE OF 1 TO 10):6 WHAT DOES YOUR PAIN FEEL LIKE:ACHING, CONTINOUS, STABBING DURATION:CONTINOUS, CONSTANT, AWAKENS FROM SLEEP PAIN IS INCREASED BY:ACTIVITIES, PROLONGED STANDING PAIN IS DECREASED BY:USE OF PAIN MEDICATIONS, OTHERS REPOSITIONING NURSING NOTE: -. PAIN CENTER INTAKE QUESTIONS: DO YOU HAVE A HISTORY OF MRSA? :NO DO YOU TAKE A BLOOD THINNERS? :NO DO YOU HAVE ANY BLEEDING DISORDERS? :NO ANY NEW NUMBNESS OR WEAKNESS IN YOUR LEGS OR ARMS? :NO ANY PACEMAKER,DEFIBRILLATOR, OR DORSAL COLUMN STIMULATOR? :NO DO YOU HAVE ANY RASHES OR OPEN SORES? :NO ARE YOU ALLERGIC TO IV DYE? :NO ARE YOU DIABETIC? :NO ANY NEW PROBLEMS WITH YOUR MEDICATIONS? :NO HAVE YOU RECEIVED A VACCINE IN THE PAST 30 DAYS? :NO ARIANA AND ARIANA VACCINATION 08/06/2020 DO YOU PLAN TO RECEIVE A VACCINE IN THE NEXT 21 DAYS? :NO DO YOU NEED ANY PRESCRIPTION? :YES SOMA, PERCOCET, NUCYNTA DO YOU TAKE ANY IMMUNOSUPPRESSIVE MEDICATIONS? :NO LAST DOSE OF PREDNISONE 08/18/2020 IS THERE A CHANCE YOU COULD BE ? :N/A ARE YOU BREAST FEEDING? :N/A CURRENT MEDICATIONS TAKING CELEBREX 200 MG CAPSULE 1 CAPSULE ORALLY ONCE A DAY NEEDED FOR PAIN, NOTES: 04-12-19 0800 TAKING PERCOCET 5-325 MG TABLET 1 TABLET ORALLY EVERY 4 -6 HOURS PRN PAIN MDD=4, NOTES: 06/30/2020 0600 TAKING NUCYNTA ER 100 MG TABLET EXTENDED RELEASE 12 HOUR 1 TABLET ORALLY FOR PAIN EVERY 24 HRS MDD1, NOTES: 06/30/2020 0600 TAKING SOMA 350 MG TABLET 1 TAB ORALLY DAILY AT BEDTIME NEEDED EVERY 2-3 NIGHTS FOR SPASMS AND PAIN MDD=1, NOTES: 2 DAYS PAST MEDICAL HISTORY GERD CHRONIC BACK PAIN ALLERGIES N.K.D.A. SURGICAL HISTORY LOW BACK SURGURY 1997 L3, L4, L5 BACK SURGURY 2000 L4-L5 SURGERY 2012 FAMILY HISTORY FATHER: ALIVE 82 YRS MOTHER: 71 YRS, DIAGNOSED WITH OTHER SPECIFIED CONDITIONS INFLUENCING HEALTH STATUS SIBLINGS: ALIVE, BROTHER WITH BLADDER CANCER, [place], UNSPECIFIED HEART DISEASE, OTHER MALIGNANT NEOPLASM OF UNSPECIFIED SITE 4 BROTHER(S) , 2 SISTER(S) - HEALTHY. MOTHER FROM [place]. SOCIAL HISTORY GENERAL: TOBACCO USE ARE YOU A:FORMER SMOKER LATEX QUESTIONNAIRE LATEX ALLERGY : HAVE YOU EVER DEVELOPED ANY TYPE OF REACTION AFTER HANDLING LATEX PRODUCTS SUCH RUBBER GLOVES, CONDOMS, DIAPHRAGMS, BALLOONS, SOCKS, OR UNDERWEAR?NO LATEX ALLERGY : HAVE YOU EVER DEVELOPED ANY TYPE OF REACTION DURING OR AFTER DENTAL APPOINTMENT, VAGINAL/RECTAL EXAMINATION, SURGICAL PROCEDURE, OR ANY OTHER EXPOSURE?NO LATEX RISK : HAVE YOU EVER HAD ANY DIFFICULTY BREATHING OR HIVES AFTER EATING OR HANDLING ANY FRUITS, OR VEGETABLES; SUCH KIWI, BANANAS, STONE FRUITS, OR CHESTNUTSNO LATEX RISK : DO YOU HAVE A PREVIOUS PERSONAL HISTORY OF MORE THAN NINE SURGERIES, SPINA BIFIDA, OR REPEATED CATHERIZATIONS? NO LATEX RISK : ARE YOU FREQUENTLY EXPOSED TO LATEX PRODUCTS IN YOUR OCCUPATION?NO DATE ASKED : 09/29/2020 ALCOHOL USE: NO. ALCOHOL SCREENING DID YOU HAVE A DRINK CONTAINING ALCOHOL IN THE PAST YEAR?NO POINTS0 INTERPRETATIONNEGATIVE RECREATIONAL DRUG USE DRUG USE?NO CAFFEINE CAFFEINE USE?YES HOW OFTEN AND HOW MUCH? DAILY COFFEE ANABAPTIST [id number] NONE NO TEMPLE BELIEFS THAT WOULD IMPACT HEALTH CARE. 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 EXERCISE: NO REGULAR EXERCISE. MARITAL STATUS: . OTHERS AT HOME: SPOUSE. FEMALE 6 MONTH RISK ASSESSMENT FOR STD SPOUSE. - PFS REFERRAL NEEDED?NO CLERGY REFERRAL NEEDED?NO PUBLIC HEALTH REFERRAL NEEDED?NO WAS THE PROVIDER NOTIFIED OF ANY PERTINENT INFO?YES HAS THE PATIENT BEEN EDUCATED REGARDING HIS/HER PLAN OF CARE?YES HAS THE PATIENT BEEN EDUCATED REGARDING PAIN, THE RISK FOR PAIN, THE IMPORTANCE OF EFFECTIVE PAIN MANAGEMENT, AND THE PAIN ASSESSMENT PROCESS?YES ADVANCE DIRECTIVE ADVANCE DIRECTIVE DISCUSSED WITH PATIENT:YES HCP PARVEZ NERI, HOSPITALIZATION/MAJOR DIAGNOSTIC PROCEDURE SURGERIES CELLULITIS 08/2020 REVIEW OF SYSTEMS CONSTITUTIONAL: ANY RECENT FEVER NO . CHILLS NO . WEIGHT CHANGE OF UNKNOWN REASONS NO . GASTROENTEROLOGY: NEW UNEXPLAINABLE CHANGES IN BOWEL CONTROL NO . CONSTIPATION NO . GENITOURINARY: ANY NEW CHANGE IN BLADDER CONTROL? NO . NEUROLOGY: NEW ONSET DIZZINESS OR NEUROLOGICAL CHANGES NOT MENTIONED NO . NEW NUMBNESS OR PAIN PATTERNS NOT MENTIONED AND PERTINENT TO TODAY'S VISIT NO . CARDIOLOGY: NEW CHEST PRESSURE NO . PATIENT DENIES NO . RESPIRATORY: UNEXPLAINABLE COUGH NO . NEW SHORTNESS OF BREATH NO . VITAL SIGNS WT 214.2 LBS, HT 70 IN, BMI 30.73 INDEX, BP 128/73 MM HG, HR 73 /MIN, RR 18 /MIN, TEMP 98.3 F, OXYGEN SAT % 95%, SAFE IN ENV? (Y/N) YES, NA INITIALS AW 1434, REVIEWED BY: NADEEM PARRISH MA. EXAMINATION GENERAL EXAMINATION: GENERALNO ACUTE DISTRESS, WELL NOURISHED AND HYDRATED. PSYCHAPPROPRIATE MOOD AND AFFECT . LUNGS:CLEAR TO AUSCULTATION BILATERALLY, NO WHEEZES, RHONCHI, RALES. HEART:NO MURMURS, REGULAR RATE AND RHYTHM. ASSESSMENTS POSTLAMINECTOMY SYNDROME, NOT ELSEWHERE CLASSIFIED - M96.1 (PRIMARY), RISK: (NULL) TREATMENT POSTLAMINECTOMY SYNDROME, NOT ELSEWHERE CLASSIFIED REFILL PERCOCET TABLET, 5-325 MG, 1 TABLET, ORALLY, EVERY 4 -6 HOURS PRN PAIN MDD=4, 30 DAY(S), 120, REFILLS 0, NOTES: 06/30/2020 0600 REFILL NUCYNTA ER TABLET EXTENDED RELEASE 12 HOUR, 100 MG, 1 TABLET, ORALLY FOR PAIN, EVERY 24 HRS MDD1, 30 DAY(S), 30, REFILLS 0, NOTES: 06/30/2020 0600 REFILL SOMA TABLET, 350 MG, 1 TAB, ORALLY, DAILY AT BEDTIME NEEDED EVERY 2-3 NIGHTS FOR SPASMS AND PAIN MDD=1, 30 DAY(S), 12, REFILLS 0, NOTES: 2 DAYS NOTES: 59-YEAR-OLD MALE IN FOR CHRONIC PAIN FOLLOW-UP. GIVEN PRESENTING SYMPTOMS RECOMMEND FOLLOW-UP IN 2 MONTHS. PATIENT HAS EXPRESSED UNDERSTANDING OF AND WAS IN AGREEMENT WITH TREATMENT PLAN. GIVEN TIME TO ASK QUESTIONS AND EXPRESS CONCERNS. ISTOP REGISTRY REVIEWED AND DEMONSTRATES COMPLLIANCE. (REF # [id number] ) BRINGS IN MEDICATIONS WHICH IS APPROPRIATE FOR WHAT WAS DISPENSED. RECENT URINE TOXICOLOGY REVIEWED. NO UNAUTHORIZED MEDICATIONS. NO ILLICIT SUBSTANCES AND PRESCRIBED MEDICATIONS WERE PRESENT. PROCEDURES PN WORKMANS' COMP OPINION IN YOUR OPINION, WAS THE INCIDENT THAT THE PATIENT DESCRIBED THE COMPETENT MEDICAL CAUSE OF THIS INJURY/ILLNESS? YES ARE THE PATIENT'S COMPLAINTS CONSISTENT WITH HIS/HER HISTORY OF THE INJURY/ILLNESS? YES IS THE PATIENT'S HISTORY OF THE INJURY/ILLNESS CONSISTENT WITH YOUR OBJECTIVE FINDING? YES WHAT IS THE PERCENTAGE OF TEMPORARY IMPAIRMENT? MARKED = 75% IS THE PATIENT WORKING? NO DOCTOR ON SITE: ARLEY HANKS MD PROCEDURE CODES FA211 ESTABILISHED PATIENT [facility] FACILITY CHARGE DISPOSITION & COMMUNICATION FOLLOW UP 2 MONTHS (REASON: BACK PAIN ) ELECTRONICALLY SIGNED BY PAT DC ON 09/30/2020 AT 09:46 AM EDT DISCLAIMER : THIS IS A VISIT SUMMARY EXTRACTED FROM THE [facility] CHART. IT IS NOT A COPY OF THE [facility] PROGRESS NOTE. PAPA
== END ==
LOC: M PAIN 14:45
PROVIDERS: ATTEND Family Medicine
DX: M96.1 Postlaminectomy syndrome, not elsewhere classified (principal); Z87.891 Personal history of nicotine dependence; Z79.891 Long term (current) use of opiate analgesic; Z79.899 Other long term (current) drug therapy

== ENCOUNTER → 2020-12-02 | Outpatient (CLI) | payer OTHER ==
[~2020-12-02] MED LIST changes: -DOXY100C37 PO; +DOXY1CAP62 PO
--- NOTE | 2020-12-06 03:21 | ECWPNPC ---
PATIENT NAME: BEBE NERI BUCKY : 1960 GENDER: MALE VISIT DATE: 12/02/2020 DISCHARGE DATE: 12/02/20 1448 VISIT LOCKED DATE TIME: PHYSICIAN: ADAM JAMESON RESOURCE: ADAM JAMESON REASON FOR APPOINTMENT 1. BACK PAIN HISTORY OF PRESENT ILLNESS GENERAL: HPI 59-YEAR-OLD MALE IN FOR WORKER'S COMP. CHRONIC PAIN FOLLOW-UP. HE RATES HIS PAIN CURRENTLY AT A 6 OUT OF 10 AND DESCRIBES IT ACHING, BURNING, SHARP, AND STABBING. PATIENT DOES ADMIT TO INCREASED PAIN IN HIS LEFT KNEE. HE FEELS HIS MEDICATIONS ARE HELPFUL AND DENIES MED SIDE EFFECTS AT THIS TIME. DOI 01/24/2010. -. FALL RISK SCREENING: SCREENING : NO FALLS REPORTED IN THE LAST YEAR. PAIN SCREENING: PATIENT HAS A COMPLAINT OF ACUTE OR CHRONIC PAIN :YES LOCATION OF PAIN:LOW BACK, LEG(S) INTENSITY OF PAIN (SCALE OF 1 TO 10):6 WHAT DOES YOUR PAIN FEEL LIKE:ACHING, BURNING, SHARP, STABBING, THROBBING, SHOOTING DURATION:CONTINOUS PAIN IS INCREASED BY:ACTIVITIES PAIN IS DECREASED BY:USE OF PAIN MEDICATIONS NURSING NOTE: -. PAIN CENTER INTAKE QUESTIONS: DO YOU HAVE A HISTORY OF MRSA? :NO DO YOU TAKE A BLOOD THINNERS? :NO DO YOU HAVE ANY BLEEDING DISORDERS? :NO ANY NEW NUMBNESS OR WEAKNESS IN YOUR LEGS OR ARMS? :NO ANY PACEMAKER,DEFIBRILLATOR, OR DORSAL COLUMN STIMULATOR? :NO DO YOU HAVE ANY RASHES OR OPEN SORES? :NO ARE YOU ALLERGIC TO IV DYE? :NO ARE YOU DIABETIC? :NO ANY NEW PROBLEMS WITH YOUR MEDICATIONS? :NO HAVE YOU RECEIVED A VACCINE IN THE PAST 30 DAYS? :NO DO YOU PLAN TO RECEIVE A VACCINE IN THE NEXT 21 DAYS? :NO DO YOU NEED ANY PRESCRIPTION? :YES SOMA, NUCYNTA, OXY DO YOU TAKE ANY IMMUNOSUPPRESSIVE MEDICATIONS? :NO DO YOU HAVE ANY KIDNEY OR LIVER DISEASE? :NO IS THERE A CHANCE YOU COULD BE ? :NO ARE YOU BREAST FEEDING? :NO CURRENT MEDICATIONS TAKING PERCOCET 5-325 MG TABLET 1 TABLET ORALLY EVERY 4 -6 HOURS PRN PAIN MDD=4 TAKING NUCYNTA ER 100 MG TABLET EXTENDED RELEASE 12 HOUR 1 TABLET ORALLY FOR PAIN EVERY 24 HRS MDD1 TAKING SOMA 350 MG TABLET 1 TAB ORALLY DAILY AT BEDTIME NEEDED EVERY 2-3 NIGHTS FOR SPASMS AND PAIN MDD=1 NOT-TAKING CELEBREX 200 MG CAPSULE 1 CAPSULE ORALLY ONCE A DAY NEEDED FOR PAIN MEDICATION LIST REVIEWED AND RECONCILED WITH THE PATIENT PAST MEDICAL HISTORY GERD CHRONIC BACK PAIN ALLERGIES NO[ALLERGIES VERIFIED] SOCIAL HISTORY GENERAL: TOBACCO USE ARE YOU A:FORMER SMOKER LATEX QUESTIONNAIRE LATEX ALLERGY : HAVE YOU EVER DEVELOPED ANY TYPE OF REACTION AFTER HANDLING LATEX PRODUCTS SUCH RUBBER GLOVES, CONDOMS, DIAPHRAGMS, BALLOONS, SOCKS, OR UNDERWEAR?NO LATEX ALLERGY : HAVE YOU EVER DEVELOPED ANY TYPE OF REACTION DURING OR AFTER DENTAL APPOINTMENT, VAGINAL/RECTAL EXAMINATION, SURGICAL PROCEDURE, OR ANY OTHER EXPOSURE?NO DATE ASKED : 09/29/2020 LATEX RISK : HAVE YOU EVER HAD ANY DIFFICULTY BREATHING OR HIVES AFTER EATING OR HANDLING ANY FRUITS, OR VEGETABLES; SUCH KIWI, BANANAS, STONE FRUITS, OR CHESTNUTSNO LATEX RISK : DO YOU HAVE A PREVIOUS PERSONAL HISTORY OF MORE THAN NINE SURGERIES, SPINA BIFIDA, OR REPEATED CATHERIZATIONS? NO LATEX RISK : ARE YOU FREQUENTLY EXPOSED TO LATEX PRODUCTS IN YOUR OCCUPATION?NO ALCOHOL USE: NO. ALCOHOL SCREENING DID YOU HAVE A DRINK CONTAINING ALCOHOL IN THE PAST YEAR?NO POINTS0 INTERPRETATIONNEGATIVE RECREATIONAL DRUG USE DRUG USE?NO CAFFEINE CAFFEINE USE?YES HOW OFTEN AND HOW MUCH? DAILY COFFEE JAIN [id number] NONE NO SHINTO BELIEFS THAT WOULD IMPACT HEALTH CARE. 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 EXERCISE: NO REGULAR EXERCISE. MARITAL STATUS: . OTHERS AT HOME: SPOUSE. FEMALE 6 MONTH RISK ASSESSMENT FOR STD SPOUSE. - PFS REFERRAL NEEDED?NO CLERGY REFERRAL NEEDED?NO PUBLIC HEALTH REFERRAL NEEDED?NO WAS THE PROVIDER NOTIFIED OF ANY PERTINENT INFO?YES HAS THE PATIENT BEEN EDUCATED REGARDING HIS/HER PLAN OF CARE?YES HAS THE PATIENT BEEN EDUCATED REGARDING PAIN, THE RISK FOR PAIN, THE IMPORTANCE OF EFFECTIVE PAIN MANAGEMENT, AND THE PAIN ASSESSMENT PROCESS?YES ADVANCE DIRECTIVE ADVANCE DIRECTIVE DISCUSSED WITH PATIENT:YES HCP PARVEZ NERI, REVIEW OF SYSTEMS CONSTITUTIONAL: ANY RECENT FEVER NO . CHILLS NO . WEIGHT CHANGE OF UNKNOWN REASONS NO . GASTROENTEROLOGY: NEW UNEXPLAINABLE CHANGES IN BOWEL CONTROL NO . CONSTIPATION NO . GENITOURINARY: ANY NEW CHANGE IN BLADDER CONTROL? NO . NEUROLOGY: NEW ONSET DIZZINESS OR NEUROLOGICAL CHANGES NOT MENTIONED NO . NEW NUMBNESS OR PAIN PATTERNS NOT MENTIONED AND PERTINENT TO TODAY'S VISIT NO . CARDIOLOGY: NEW CHEST PRESSURE NO . PATIENT DENIES NO . RESPIRATORY: UNEXPLAINABLE COUGH NO . NEW SHORTNESS OF BREATH NO . VITAL SIGNS WT 219.4 LBS, HT 70 IN, BMI 31.48 INDEX, BP 125/74 MM HG, HR 94 /MIN, RR 18 /MIN, TEMP 98.1 F, OXYGEN SAT % 100%, SAFE IN ENV? (Y/N) Y, NA INITIALS AW 1415, REVIEWED BY: EM. EXAMINATION GENERAL EXAMINATION: GENERALNO ACUTE DISTRESS, WELL NOURISHED AND HYDRATED. PSYCHAPPROPRIATE MOOD AND AFFECT . LUNGS:CLEAR TO AUSCULTATION BILATERALLY, NO WHEEZES, RHONCHI, RALES. HEART:NO MURMURS, REGULAR RATE AND RHYTHM. ASSESSMENTS CHRONIC PRESCRIPTION OPIATE USE - Z79.891 (PRIMARY), RISK: (NULL) OSTEOARTHRITIS OF KNEE, UNSPECIFIED - M17.9, RISK: (NULL) TREATMENT CHRONIC PRESCRIPTION OPIATE USE LAB: URINE TEST GROUP TISHA KWONG 12/02/2020 2:44:00 PM > PERCOCET 12/02/20 NUCYNTA 12/01/20 SOMA 11/29/20 OSTEOARTHRITIS OF KNEE, UNSPECIFIED [facility] [place] WITHOUT [id number] NOTES: 59-YEAR-OLD MALE IN FOR WORKER'S COMP. CHRONIC PAIN FOLLOW-UP. GIVEN PRESENTING SYMPTOMS OF WORSENING LEFT KNEE PAIN RECOMMEND GETTING AN UPDATED MRI FOR FURTHER EVALUATION WITH FOLLOW-UP POST IMAGING. PATIENT HAS EXPRESSED UNDERSTANDING OF AND WAS IN AGREEMENT WITH TREATMENT PLAN. GIVEN TIME TO ASK QUESTIONS AND EXPRESS CONCERNS. ISTOP REGISTRY REVIEWED AND DEMONSTRATES COMPLLIANCE. (REF # [id number] ) BRINGS IN MEDICATIONS WHICH IS APPROPRIATE FOR WHAT WAS DISPENSED. RECENT URINE TOXICOLOGY REVIEWED. NO UNAUTHORIZED MEDICATIONS. NO ILLICIT SUBSTANCES AND PRESCRIBED MEDICATIONS WERE PRESENT. PROCEDURES PN WORKMANS' COMP OPINION IN YOUR OPINION, WAS THE INCIDENT THAT THE PATIENT DESCRIBED THE COMPETENT MEDICAL CAUSE OF THIS INJURY/ILLNESS? YES ARE THE PATIENT'S COMPLAINTS CONSISTENT WITH HIS/HER HISTORY OF THE INJURY/ILLNESS? YES IS THE PATIENT'S HISTORY OF THE INJURY/ILLNESS CONSISTENT WITH YOUR OBJECTIVE FINDING? YES WHAT IS THE PERCENTAGE OF TEMPORARY IMPAIRMENT? MARKED = 75% IS THE PATIENT WORKING? NO DOCTOR ON SITE: ARLEY HANKS MD PROCEDURE CODES FA211 ESTABILISHED PATIENT [facility] CHARGE DISPOSITION & COMMUNICATION FOLLOW UP POST IMAGING (REASON: MRI OF THE LEFT KNEE WITHOUT CONTRAST) ELECTRONICALLY SIGNED BY PAT DC ON 12/05/2020 AT 08:47 AM EDT DISCLAIMER : THIS IS A VISIT SUMMARY EXTRACTED FROM THE [facility] CHART. IT IS NOT A COPY OF THE [facility] PROGRESS NOTE. PAPA
== END ==
LOC: M PAIN 14:45
PROVIDERS: ATTEND Family Medicine
DX: M17.9 Osteoarthritis of knee, unspecified (principal); G89.29 Other chronic pain; Z87.891 Personal history of nicotine dependence; Z79.891 Long term (current) use of opiate analgesic; Z79.899 Other long term (current) drug therapy

== ENCOUNTER → 2021-02-20 | Outpatient (CLI) | payer OTHER ==
[~2021-02-20] MED LIST changes: +DOXY-443 PO; -DOXY1CAP62 PO
== END ==
LOC: M PAIN 14:30
PROVIDERS: ATTEND Anesthesiology
DX: M96.1 Postlaminectomy syndrome, not elsewhere classified (principal); M51.16 Intervertebral disc disorders with radiculopathy, lumbar region; Z87.891 Personal history of nicotine dependence; Z79.891 Long term (current) use of opiate analgesic; Z79.899 Other long term (current) drug therapy

== ENCOUNTER → 2021-06-02 | Outpatient (CLI) | payer OTHER | LOC: M PAIN 14:45 | PROVIDERS: ATTEND Nurse Practitioner Family | DX: M96.1 Postlaminectomy syndrome, not elsewhere classified (principal); M51.16 Intervertebral disc disorders with radiculopathy, lumbar region; Z87.891 Personal history of nicotine dependence; Z79.891 Long term (current) use of opiate analgesic; Z79.899 Other long term (current) drug therapy ==

== ENCOUNTER → 2021-08-16 | Outpatient (CLI) | payer OTHER ==
[~2021-08-16] MED LIST changes: +PROHANCE 279.3MG/ML 15ML VIAL As Ordered ONE; +PROHANCE 279.3MG/ML 5ML VIAL As Ordered ONE
== END ==
LOC: M RAD 15:14
PROVIDERS: ATTEND Anesthesiology
DX: M96.1 Postlaminectomy syndrome, not elsewhere classified (principal); M51.16 Intervertebral disc disorders with radiculopathy, lumbar region; M51.26 Other intervertebral disc displacement, lumbar region
CPT/HCPCS: 72158; A9576

== ENCOUNTER → 2021-08-29 | Outpatient (CLI) | payer OTHER ==
[~2021-08-29] MED LIST changes: -PROHANCE 279.3MG/ML 15ML VIAL As Ordered ONE; -PROHANCE 279.3MG/ML 5ML VIAL As Ordered ONE
== END ==
LOC: M PAIN 14:30
PROVIDERS: ATTEND Nurse Practitioner Family
DX: M96.1 Postlaminectomy syndrome, not elsewhere classified (principal); M51.16 Intervertebral disc disorders with radiculopathy, lumbar region; Z87.891 Personal history of nicotine dependence; Z79.891 Long term (current) use of opiate analgesic; Z79.899 Other long term (current) drug therapy

== ENCOUNTER → 2022-01-19 | Outpatient (CLI) | payer OTHER | LOC: M PAIN 11:45 | PROVIDERS: ATTEND Nurse Practitioner Family | DX: M51.16 Intervertebral disc disorders with radiculopathy, lumbar region (principal); G89.29 Other chronic pain; M96.1 Postlaminectomy syndrome, not elsewhere classified; Z87.891 Personal history of nicotine dependence; Z79.891 Long term (current) use of opiate analgesic; Z79.899 Other long term (current) drug therapy ==

== ENCOUNTER → 2022-04-22 | Outpatient (CLI) | payer OTHER ==
[~2022-04-22] MED LIST changes: -DOXY-350 PO; +DOXY-444 PO
== END ==
LOC: M LABSMTC 09:55
PROVIDERS: ATTEND Anesthesiology
DX: Z11.52 Encounter for screening for COVID-19 (principal)

== ENCOUNTER → 2022-05-31 | Outpatient (CLI) | payer OTHER | LOC: M LABSMTC 11:46 | PROVIDERS: ATTEND Anesthesiology | DX: Z01.818 Encounter for other preprocedural examination (principal) ==

== ENCOUNTER → 2022-06-04 | Outpatient (CLI) | payer OTHER ==
[~2022-06-04] MED LIST changes: +BUPIVACAINE HCL 0.25% 30ML VIAL As Ordered ONE; +ISOVUE-M 300 61% 15ML VIAL As Ordered ONE; +LIDOCAINE 1% SDV 30ML VIAL As Ordered ONE; +oxyCODONE 5MG TAB As Ordered ONE
== END ==
LOC: M PAIN 14:00
PROVIDERS: ATTEND Anesthesiology
DX: M51.17 Intervertebral disc disorders with radiculopathy, lumbosacral region (principal); G89.29 Other chronic pain; Z87.891 Personal history of nicotine dependence; Z79.891 Long term (current) use of opiate analgesic; Z79.899 Other long term (current) drug therapy
CPT/HCPCS: 64483; 64484; J1100; S0020

== ENCOUNTER → 2022-06-22 | Outpatient (CLI) | payer OTHER ==
[~2022-06-22] MED LIST changes: -BUPIVACAINE HCL 0.25% 30ML VIAL As Ordered ONE; -ISOVUE-M 300 61% 15ML VIAL As Ordered ONE; -LIDOCAINE 1% SDV 30ML VIAL As Ordered ONE; -oxyCODONE 5MG TAB As Ordered ONE
== END ==
LOC: M PAIN 11:30
PROVIDERS: ATTEND Nurse Practitioner Family
DX: M96.1 Postlaminectomy syndrome, not elsewhere classified (principal); G89.29 Other chronic pain; Z87.891 Personal history of nicotine dependence; Z79.891 Long term (current) use of opiate analgesic; Z79.899 Other long term (current) drug therapy

== ENCOUNTER → 2022-09-21 | Outpatient (CLI) | payer OTHER | LOC: M PAIN 14:30 | PROVIDERS: ATTEND Nurse Practitioner Family | DX: M96.1 Postlaminectomy syndrome, not elsewhere classified (principal); G89.29 Other chronic pain; Z87.891 Personal history of nicotine dependence; Z79.891 Long term (current) use of opiate analgesic; Z79.899 Other long term (current) drug therapy ==

== ENCOUNTER 2022-11-12 10:49 | Emergency (ER) | payer OTHER, SELFPAY ==
[~2022-11-12] VITALS: Ht 177.8 cm; Wt 104.3 kg
[2022-11-12 10:49] VITALS: BP 127/81; TEMP 98.5; O2SAT 100
[2022-11-12] MEDS ORDERED: AMOX875T2 PO (12:05)
[2022-11-12] MEDS ORDERED: CIPR7.5D5 AD (12:05)
== END 2022-11-12 12:10 | disposition home or self-care (01) ==
LOC: M ED 10:49
DX: J01.90 Acute sinusitis, unspecified (principal); H60.91 Unspecified otitis externa, right ear; Z88.8 Allergy status to other drugs, medicaments and biological substances; Z79.2 Long term (current) use of antibiotics; Z79.899 Other long term (current) drug therapy

== ENCOUNTER → 2022-11-15 | Outpatient (CLI) | payer SELFPAY ==
[~2022-11-15] MED LIST changes: +AMOX875T2 PO; +CIPR7.5D5 AD
[2022-11-15 10:02] LABS: HEMATOCRIT 46.1 % (42.0-52.0); HEMOGLOBIN 15.1 g/dl (13.5-17.5); MEAN CORPUSCULAR HEMOGLOBIN 29.2 pg (27.0-33.0); MEAN CORPUSCULAR HGB CONC 32.8 g/dl (32.0-36.5); PLATELET COUNT, AUTOMATED 267 10^3/uL (150-450); RED BLOOD COUNT 5.18 10^6/uL (4.30-6.10); WHITE BLOOD COUNT 7.1 10^3/uL (4.0-10.0)
[2022-11-15 10:21] LABS: PROSTATIC SPECIFIC AG MONITOR 0.32 NG/ML (< 4.00)
[2022-11-15 10:25] LABS: ALBUMIN 3.9 G/DL (3.2-5.2); ALKALINE PHOSPHATASE 68 U/L (46-116); ALT/SGPT 25 U/L (7.0-40); AST/SGOT < 8 U/L (<34); BILIRUBIN,TOTAL 0.5 MG/DL (0.3-1.2); BLOOD UREA NITROGEN 15 MG/DL (9-23); CARBON DIOXIDE LEVEL 29 MMOL/L (20-31); CHLORIDE LEVEL 103 MMOL/L (98-107); CHOLESTEROL LEVEL 160 MG/DL (<200); CHOLESTEROL RISK RATIO 5.33 (<5); CREATININE FOR GFR 1.12 MG/DL (0.70-1.30); GLOMERULAR FILTRATION RATE > 60.0 (>56); GLUCOSE, FASTING 89 MG/DL (60-100); HEMOGLOBIN A1c 5.5 % (4.0-6.0); LDL CHOLESTEROL 100.2 MG/DL (<100); POTASSIUM SERUM 4.7 MMOL/L (3.5-5.1); SODIUM LEVEL 139 MMOL/L (136-145); TESTOSTERONE 393 NG/DL (241-827); THYROID STIMULATING HORMONE 2.353 uIU/ML (0.55-4.78); TRIGLYCERIDES LEVEL 149 MG/DL (<150)
== END ==
LOC: M LAB 09:08
PROVIDERS: ATTEND Family Medicine
DX: I10 Essential (primary) hypertension (principal); R53.83 Other fatigue; E03.9 Hypothyroidism, unspecified

== ENCOUNTER → 2022-12-21 | Outpatient (CLI) | payer OTHER | LOC: M PAIN 13:45 | PROVIDERS: ATTEND Nurse Practitioner Family | DX: M96.1 Postlaminectomy syndrome, not elsewhere classified (principal); M51.16 Intervertebral disc disorders with radiculopathy, lumbar region; G89.29 Other chronic pain; Z87.891 Personal history of nicotine dependence; Z79.891 Long term (current) use of opiate analgesic; Z79.899 Other long term (current) drug therapy ==

== ENCOUNTER → 2023-04-05 | Outpatient (CLI) | payer OTHER | LOC: M PAIN 17:30 | PROVIDERS: ATTEND Nurse Practitioner Family | DX: M96.1 Postlaminectomy syndrome, not elsewhere classified (principal); G89.29 Other chronic pain; Z87.891 Personal history of nicotine dependence; Z79.891 Long term (current) use of opiate analgesic; Z79.899 Other long term (current) drug therapy ==

== ENCOUNTER → 2023-05-31 | Outpatient (CLI) | payer OTHER | LOC: M PAIN 16:30 | PROVIDERS: ATTEND Nurse Practitioner Family | DX: M96.1 Postlaminectomy syndrome, not elsewhere classified (principal); G89.29 Other chronic pain; K21.9 Gastro-esophageal reflux disease without esophagitis; Z87.891 Personal history of nicotine dependence; Z79.891 Long term (current) use of opiate analgesic; Z79.899 Other long term (current) drug therapy ==

== ENCOUNTER → 2023-08-30 | Outpatient (CLI) | payer OTHER | LOC: M PAIN 15:00 | PROVIDERS: ATTEND Nurse Practitioner Family | DX: M96.1 Postlaminectomy syndrome, not elsewhere classified (principal); G89.29 Other chronic pain; K21.9 Gastro-esophageal reflux disease without esophagitis; Z79.891 Long term (current) use of opiate analgesic; Z79.899 Other long term (current) drug therapy; Z87.891 Personal history of nicotine dependence ==

== ENCOUNTER → 2023-11-29 | Outpatient (CLI) | payer OTHER ==
[~2023-11-29] MED LIST changes: +DOXY-323 PO; +DOXY-440 PO; -DOXY-443 PO; -DOXY-444 PO
== END ==
LOC: M PAIN 15:00
PROVIDERS: ATTEND Nurse Practitioner Family
DX: M96.1 Postlaminectomy syndrome, not elsewhere classified (principal); Z79.891 Long term (current) use of opiate analgesic; M51.17 Intervertebral disc disorders with radiculopathy, lumbosacral region; Z87.891 Personal history of nicotine dependence

== ENCOUNTER → 2024-03-06 | Outpatient (CLI) | payer OTHER ==
[~2024-03-06] MED LIST changes: -DOXY-323 PO; +DOXY-441 PO; +ISOVUE-M 300 61% 15ML VIAL As Ordered ONE; +LIDOCAINE 1% SDV 30ML VIAL As Ordered ONE; +dexAMETHasone 10MG/1ML VIAL PRES.FREE As Ordered ONE; +oxyCODONE 5MG TAB As Ordered ONE
== END ==
LOC: M PAIN 14:15
PROVIDERS: ATTEND Anesthesiology
DX: M51.16 Intervertebral disc disorders with radiculopathy, lumbar region (principal); G89.29 Other chronic pain; K21.9 Gastro-esophageal reflux disease without esophagitis; Z79.891 Long term (current) use of opiate analgesic; Z79.899 Other long term (current) drug therapy
CPT/HCPCS: 64483; 64484; J0665; J1100; Q9967

== ENCOUNTER → 2024-04-10 | Outpatient (CLI) | payer OTHER ==
[~2024-04-10] MED LIST changes: -ISOVUE-M 300 61% 15ML VIAL As Ordered ONE; -LIDOCAINE 1% SDV 30ML VIAL As Ordered ONE; -dexAMETHasone 10MG/1ML VIAL PRES.FREE As Ordered ONE; -oxyCODONE 5MG TAB As Ordered ONE
== END ==
LOC: M PAIN 17:30
PROVIDERS: ATTEND Nurse Practitioner Family
DX: M96.1 Postlaminectomy syndrome, not elsewhere classified (principal); G89.29 Other chronic pain; K21.9 Gastro-esophageal reflux disease without esophagitis; Z87.891 Personal history of nicotine dependence; Z79.891 Long term (current) use of opiate analgesic; Z79.899 Other long term (current) drug therapy

== ENCOUNTER → 2025-04-08 | Outpatient (REF) | payer BC, OTHER ==
[~2025-04-08] MED LIST changes: +CARI-555 PO; -CARI1TAB7 PO
[2025-04-08 17:25] LABS: AMORPHOUS SEDIMENT LARGE (NEGATIVE); APPEARANCE, URINE TURBID (CLEAR); BACTERIA, URINE AUTO NEGATIVE (NEGATIVE); BILIRUBIN, URINE AUTO NEGATIVE (NEGATIVE); BLOOD, URINE BLOOD 1+ (NEGATIVE); GLUCOSE, URINE (UA) AUTO NEGATIVE (NEGATIVE); KETONE, URINE AUTO NEGATIVE (NEGATIVE); LEUKOCYTE ESTERASE, URINE AUTO NEGATIVE (NEGATIVE); MUCUS, URINE SMALL (NEGATIVE); NITRITE, URINE AUTO NEGATIVE (NEGATIVE); PROTEIN, URINE AUTO NEGATIVE (NEGATIVE); RBC, URINE AUTO 1 /HPF (0-3); SPECIFIC GRAVITY URINE AUTO 1.019 (1.002-1.035); SQUAMOUS EPITHELIAL CELL UR AU 0 /HPF (0-6); UROBILINOGEN, URINE AUTO 0.2 mg/dL (0.0-2.0); WBC, URINE AUTO 1 /HPF (0-3)
[2025-04-08 17:44] LABS: PSA SCREENING 0.38 NG/ML (< 4.00)
[2025-04-08 17:49] LABS: TOTAL 25(OH) VITAMIN D 52.4 NG/ML (20.0-100.0)
[2025-04-08 17:51] LABS: ALT/SGPT 21.0 U/L (7.0-40); AST/SGOT 20.0 U/L (<34); CALCIUM LEVEL 9.0 MG/DL (8.3-10.6); CARBON DIOXIDE LEVEL 27.0 MMOL/L (20-31); CHLORIDE LEVEL 104.0 MMOL/L (98-107); CHOLESTEROL LEVEL 164.0 MG/DL (<200); CHOLESTEROL RISK RATIO 5.43 (<5); CREATININE FOR GFR 1.16 MG/DL (0.70-1.30); GLOMERULAR FILTRATION RATE 71.2 (>49); LDL CHOLESTEROL 112.0 MG/DL (<100); NON-HDL-C 133.8 MG/DL; POTASSIUM SERUM 4.1 MMOL/L (3.5-5.1); SODIUM LEVEL 140.0 MMOL/L (136-145); TRIGLYCERIDES LEVEL 109.0 MG/DL (<150)
[2025-04-08 17:54] LABS: BASO # 0.1 10^3/uL (0.0-0.2); BASO % 1.1 % (0.0-1.0); EOS # 0.3 10^3/uL (0.0-0.5); EOS % 3.2 % (0.0-3.0); LYMPH # 1.9 10^3/uL (1.5-5.0); LYMPH % 18.6 % (24.0-44.0); MONO # 0.6 10^3/uL (0.0-0.8); MONO % 5.9 % (2.0-8.0); NEUTROPHILS # 7.4 10^3/uL (1.5-8.5); NEUTROPHILS % 71.0 % (36.0-66.0); PLATELET COUNT, AUTOMATED 290 10^3/uL (150-450)
[2025-04-08 18:31] LABS: ESTIMATED AVERAGE GLUCOSE 114.0 MG/DL (60-110)
== END ==
LOC: M SFHCLERA 12:24
PROVIDERS: ATTEND Internal Medicine
DX: Z00.00 Encounter for general adult medical examination without abnormal findings (principal)
CPT/HCPCS: 80053; 80061; 81001; 82306; 83036; 85025; G0103